=== PATIENT | female | born 1935 | race Caucasian/White ===

== ENCOUNTER 2016-06-11 09:49 | Inpatient (IN) | payer OTHER, MEDICARE ==
[~2016-06-11] VITALS: Ht 160 cm; Wt 74.4 kg
[~2016-06-11 09:49] MED LIST: ALENDRONATE SOD70 M2 PO; ALENDRONATE SOD70 MG PO; ALLOPURINOL100 M1 PO; ASPIRIN EC325 MG PO; ASPIRIN EC81 M1 PO; ATIVAN0.5 MG PO; ATORVASTATIN CA40 M1 PO; ATORVASTATIN CA80 MG PO; BIOTIN10000 MCG PO; CLOPIDOGREL75 M1 PO; CLOPIDOGREL75 MG PO; COUMADIN2.5 M1 PO; COUMADIN5 M2 PO; CYMBALTA 30 MG30 MG PO; CYMBALTA60 M1 PO; CYMBALTA60 MG PO; DAILY MULTIPLE1 EACH PO; DILAUDID2 MG PO; DOCUSATE SODIU100 M3 PO; DOK100 M1 PO; FERROUS SULFAT325 M1 PO; FERROUS SULFAT325 M3 PO; FIBERCON625 MG PO; FLUZONE HI180 MCG/02 SC; HYDROCODONE/ACE1 TA2 PO; HYDRODIURIL 2525 MG PO; INDOMETHACIN75 MG PO; JANUVIA 50MG50 MG PO; JANUVIA25 MG PO; LABETALOL HCL100 MG PO; LABETALOL HCL300 M1 PO; LASIX40 M1 PO; LASIX40 MG PO; LEVAQUIN500 MG PO; LIDODERM 5% PAT1 PAT EXT; LIDODERM 5% PAT1 PAT TOP; LIDODERM1 EACH EXT; LIDODERM1 EACH TOP; LIPO-FLAVONOID1 EACH PO; LISINOPRIL10 M1 PO; LISINOPRIL2.5 MG PO; LORAZEPAM0.5 MG PO; MASON NATURAL325 MG PO; METHIMAZOLE5 M1 PO; METHIMAZOLE5 MG PO; MIRALAX119 GM PO; MIRALAX17 GM PO; MORPHINE SULFAT15 M2 PO; MORPHINE SULFAT15 M4 PO; MS CONTIN15 M1 PO; NORCO 325 MG-51 TAB PO; PREDNISONE2.5 M1 PO; PREDNISONE5 MG PO; PRINIVIL 5MG5 MG PO; PROAIR HFA0.09 MG/Ac PO; SIMVASTATIN40 MG PO; TRADJENTA5 M1 PO; TRIAMTERENE/HCT1 CAP PO; TYLENOL #31 TAB PO; TYLENOL EXTRA500 M2 PO; TYLENOL WITH C1 EACH PO; TYLENOL XSTR500 MG PO; VALIUM2 MG PO; VALIUM5 M1 PO; VITAB121000 PO; VITAMIN B-121000 MC3 PO; VITAMIN B121000 MCG PO; VITAMIN D32000 UNI1 PO; ZYLOPRIM 100MG100 MG PO
--- NOTE | 2016-06-11 09:55 | ED MVC/FALL/TRAUMA COMPLAINT ---
History of Present Illness General Chief Complaint: Fall Stated Complaint: BIBA FALL Source: patient, family, EMS Exam Limitations: no limitations Vital Signs & Intake/Output Vital Signs & Intake/Output Vital Signs Date Time Temp Pulse Resp B/P Pulse O2 O2 Flow FiO2 Ox Delivery Rate 06/11 1230 98.4 88 20 166/78 98 Room Air 06/11 1000 98.9 93 20 175/71 99 Room Air Allergies Coded Allergies: hydromorphone (From DILAUDID) (hallucinations 05/10/16) morphine (hallucinations 05/10/16) oxycodone (hallucinations 05/10/16) Reconcile Medications Alendronate Sodium 70 MG TABLET 1 TAB PO QSUN BONES (Reported) in the morning, at least 30 minutes before the first food, beverage, or medication of the day Allopurinol 100 MG TAB 2 TAB PO QAM GOUT (Reported) Aspirin (Ecotrin*) 81 MG TABLET.DR 1 TAB PO DAILY HEART HEALTH (Reported) Atorvastatin Calcium 40 MG TABLET 1 TAB PO DAILY CHOLESTEROL (Reported) Biotin 10,000 MCG CAPSULE 1 CAP PO 1700 SUPPLEMENT (Reported) Calcium Carbonate/Vitamin D3 (Calcium 500 + D Tablet) 500 MG-400 TABLET 1 TAB PO DAILY SUPPLEMENT (Reported) Cyanocobalamin (Vitamin B-12) 1,000 MCG TABLET 1 TAB PO QAM SUPPLEMENT ( Reported) Docusate Sodium 100 MG CAPSULE 1 TAB PO DAILY CONSTIPATION Duloxetine HCl (Cymbalta) 60 MG CAPSULE.DR 1 CAP PO QHS MENTAL HEALTH ( Reported) Ferrous Sulfate 325 MG TABLET 1 TAB PO QAM SUPPLEMENT (Reported) Furosemide (Lasix) 40 MG TABLET 1 TAB PO QAM DIURETIC (Reported) Insulin Glargine,Hum.rec.anlog (Lantus Solostar) 100 UNIT/ML (3 ML) INSULN.PEN 15 UNIT SC QPM DIABETES (Reported) Insulin Lispro (Humalog Kwikpen U-100) (Unknown Strength) INSULN.PEN (Unknown Dose) SEE SLIDING SCALE DIABETES (Reported) fingerstick blood sugar 80-150 mg/dl no insulin 151-200 mg/dl 1 unit 201-250 mg/dl 2 units 251-300 mg/dl 3 units 301-350 mg/dl 4 units 351-400 mg/dl 6 units more then 400 mg/dl 8 units and then call your doctor Labetalol HCl 300 MG TABLET 1 TAB PO BID BP (Reported) Lidocaine (Lidoderm) 5 % ADH..PATCH 1 PAT TOP PRN LOWER BACK (Reported) may wear up to 12 hours Linagliptin (Tradjenta) 5 MG TABLET 1 TAB PO 1700 DIABETES (Reported) Lisinopril 10 MG TABLET 1 TAB PO BID HYPERTENSION (Reported) Methimazole 5 MG TABLET 0.5 TAB PO DAILY THYROID (Reported) Multivitamin (Daily Multiple) 1 TAB TAB 1 TAB PO QPM SUPPLEMENT (Reported) Penicillin G Potassium (Pen G K 2 Million Unit/50 Ml) 2 MILLION UNIT/50 ML FROZ.PIGGY 2 BAG IV Q4 BONE INFECTION COMPLETE THE TOTAL COURSE OF ABX UNTILL July Prednisone 2.5 MG TABLET 1 TAB PO DAILY GOUT (Reported) Tylenol With Codeine (Tylenol With Codeine #3 Tablet) 300 MG-30 MG TABLET 1-2 TAB PO Q4-6 PRN PRN PAIN Vitamin D (Vitamin D3) 2,000 IU SGL 1 TAB PO QPM SUPPLEMENT (Reported) Triage Nurses Notes Reviewed? yes Onset: Abrupt Duration: day(s): (1) Timing: single episode today Severity: severe Severity Numbers: 10 Injuries/Fall Location: SHOULDER Method of Injury: fall Loss of Consciousness: no loss of consciousness Modifying Factors: Worsens With: movement, palpation. Associated Symptoms: muscle spasms HPI: This is an 81-year-old female who presents via EMS from home for chief complaint of sudden onset of right shoulder pain status post trip and fall yesterday. She is home from rehabilitation since last week and states that she was reaching out for her walker lost her balance and fell forward. Patient denies any head trauma or loss of consciousness. Since then she has been unable to move her shoulder. Son heard the thump on the ground and found her lying on her left flank. They helped her up to her feet. Pain is severe, 10 out of 10 worse with movement. She is status post hip fracture replacement 2 weeks ago. They also noticed that her legs are swollen bilaterally in the right one has started to weep. Or chills. No headache or blurred vision. Patient is very anxious but awake and alert. Past History Travel History Traveled to [place] past 21 day No Medical History Any Pertinent Medical History? see below for history Neurological: NONE EENT: cataracts Cardiovascular: CHF, hypertension, hyperlipidemia, AORTIC ANEURYSM Respiratory: NONE Gastrointestinal: HAS BLEED- ?FROM WHERE Hepatic: cholelithiasis Renal: ACUTE KIDNEY FAILURE Musculoskeletal: chronic back pain, gout, HAD BACK SX- HAS CAGE Psychiatric: anxiety Endocrine: diabetes, hyperthyroidism Blood Disorders: anemia Cancer(s): colon/rectal cancer [employer] PR[employer] L[employer]/Reproductive: miscarriage History of MRSA: No History of VRE: No History of CDIFF: No Pneumonia Vaccine: 04/05/15 Influenza Vaccine: 01/04/16 Tetanus Vaccine: 04/24/15 Surgical History Surgical History: cholecystectomy, spinal fusion, L BREAST NIPPLE REMOVED L HIP ORIF Psychosocial History Who do you live with Family Services at Home None What is your primary language Kiswahili Family History Family History, If Any: BROTHER (Pancreatic cancer). Relation not specified for: Cancer of small intestine FH: diabetes mellitus FH: hypertension FH: pancreatic cancer Hx Contributory? No Review of Systems Review of Systems Constitutional: Denies: chills, fever. Eyes: Denies: blurred vision. Ears, Nose, Throat, Mouth: Reports: no symptoms. Respiratory: Denies: cough, short of breath. Cardiovascular: Denies: chest pain, palpitations. Gastrointestinal/Abdominal: Denies: abdominal pain. Genitourinary: Reports: no symptoms. Musculoskeletal: Reports: joint pain, joint swelling, muscle pain, muscle stiffness. Skin: Reports: no symptoms. Neurological/Psychological: Reports: anxiety. All Other Systems: Reviewed and Negative Physical Exam Physical Exam General Appearance: well developed/nourished, alert, awake, anxious, severe distress Head: atraumatic, normal appearance Eyes: Bilateral: normal appearance. Ears, Nose, Throat, Mouth: hearing grossly normal, moist mucous membrane Neck: normal inspection, supple, full range of motion Respiratory: normal breath sounds, chest non-tender, no respiratory distress Cardiovascular: regular rate/rhythm Peripheral Pulses: 2+ radial (R), 2+ radial (L) Gastrointestinal: soft, non-tender Extremities: SEVERE RIGHT SHOULDER TENDERNESS, LIMITED ROM Neurologic/Psych: no motor/sensory deficits, awake, alert, oriented x 3 Skin: intact, normal color, warm/dry Core Measures ACS in differential dx? No Severe Sepsis Present: No Septic Shock Present: No Progress Differential Diagnosis: ext injury, SHOULDER FRACTURE, SHOULDER DISLOCATION, RIGHT HIP INJURY, MALFUNCTION OF THE HARDWARE, chf, DEPENDENT EDEMA Plan of Care: Orders Procedure Date/time Status URINALYSIS 06/11 1109 Complete TROPONIN LEVEL 06/11 1009 Complete COMPREHENSIVE METABOLIC PANEL 06/11 1009 Complete CBC WITHOUT DIFFERENTIAL 06/11 1009 Complete B-TYPE NATRIURETIC PEP (BNP) 06/11 1009 Complete EKG 06/11 1009 Active Laboratory Tests 06/11/16 1214: Urine Color YEL, Urine Clarity CLEAR, Urine pH 6.0, Ur Specific [place] 1.015, Urine Protein NEG, Urine Ketones NEG, Urine Nitrite NEG, Urine Bilirubin NEG, Urine Urobilinogen 0.2, Ur Leukocyte Esterase SMALL H, Ur Microscopic SEDIMENT EXAMINED, Urine WBC 5-10 H, Ur Epithelial Cells FEW, Urine Hemoglobin NEG, Urine Glucose NEG 06/11/16 1027: Anion Gap 14, Estimated GFR 39 L, BUN/Creatinine Ratio 30.0 H, Glucose 159 H, Calcium 8.3 L, Total Bilirubin 1.1, AST 27, ALT 41, Alkaline Phosphatase 102, Troponin I < 0.01, Djl-M-Ciwoklpigbf Pept 2610 H, Total Protein 5.9 L, Albumin 3.2 L, Globulin 2.7, Albumin/Globulin Ratio 1.2, CBC w Diff MAN DIFF ORDERED, RBC 2.74 L, MCV 89.0, MCH 29.0, RDW 18.7 H, MPV 7.9, Gran % 88.8 H, Lymphocytes % 4.4 L, Monocytes % 6.6, Eosinophils % 0, Basophils % 0.2, Absolute Granulocytes 18.3 H, Absolute Lymphocytes 0.9 L, Absolute Monocytes 1.4 H, Absolute Eosinophils 0, Absolute Basophils 0, Platelet Estimate ADEQUATE , Polychromasia 1+, Hypochromic-Microcytic 1+, Poikilocytosis 1+, Anisocytosis 1 +, PUBS MCHC 32.6 L SEVERE RIGHT SHOULDER PAIN, ? HIP INJURY. XRAYS ORDERED. IV TYLENOL ORDERED, IV VALIUM ORDERED.. XRAY NEGATIVE FOR FX/DISLOCATION. CT RUE ORDERED. IV MORPHINE, IV ZOFRAN ORDERED. D/W DR BRIDGES. AIR IN JOINT ? INFECTIVE PROCESS. D/W SURGICAL PA WHO WILL CONSULT, POSSIBLE SHOULDER ASPIRATION. HOLD ABX. PATIENT ADMITTED TO MEDICAL SERVICE. (SALOMÓN LEDESMA,LUCIANA) Diagnostic Imaging: Viewed by Me: Radiology Read, CT Scan. Discussed w/RAD: Radiology Read, CT Scan. Radiology Impression: EXAM TYPE: RAD - XRY-HIP 2-3 VIEWS, RIGHT; XRY-SHOULDER COMPLETE-RIGHT EXAMINATION: XR SHOULDER, RIGHT XR HIP, RIGHT, INCLUDING PELVIS CLINICAL INFORMATION: 81-year-old female with right shoulder pain, status post fall. Patient also has a right hip pain. COMPARISON: None. TECHNIQUE: 3 views, 5 images of the right shoulder and single frontal view of the pelvis and 2 views of the right hip were obtained. FINDINGS: RIGHT SHOULDER: Moderate diffuse osteopenia is noted involving all the visualized bones. Superimposed moderate degenerative osteoarthrosis-related changes are noted at the right glenohumeral joint. The glenohumeral relationship could not be visualized on the Y projection in spite of repeated attempts due to suboptimal exposure and underlying diffuse osteopenia. The visualized proximal part of the right humerus appears intact. PELVIS: The frontal view of the pelvis shows postsurgical changes at lower lumbar spine and postsurgical changes of complete right hip replacement and Gamma nailing within the left femoral neck and visualized proximal part of the left femur. There is no evidence of any displaced fracture identified. There is marked diffuse osteopenia present. RIGHT HIP: The right hip frontal as well as frog-leg lateral view shows satisfactory alignment of the prosthesis without evidence of any loosening or superimposed fracture. Atherosclerotic changes are noted within the visualized arteries. IMPRESSION: 1. Evaluation of the right shoulder is slightly technically limited due to marked diffuse osteopenia and suboptimal visualization of the glenohumeral alignment on the Y projection. 2. Grossly, there is no evidence of any acute fracture and/or dislocation identified. Marked diffuse osteopenia and moderate osteoarthrosis-related changes are noted at the right shoulder. Subluxation cannot be excluded. Alternative imaging modality may be considered if there is a strong clinical suspicion of acute fracture or dislocation present. 3. No radiographic evidence of any displaced pelvic fracture or right hip fracture or dislocation. 4. Specifically, the right hip prosthesis appears intact. DICTATED BY: BILL NAJERA MD Initial ED EKG: NSR, PAC Comments: PATIENT: XENA OVALLE PRESENT AGE: 81 PATIENT ACCOUNT NO: [id number] : 34 LOCATION: [facility] ORDERING PHYSICIAN: LUCIANA LORENZANA MD SERVICE DATE: 06/11/16 EXAM TYPE: CAT - CT UPPER EXT WO IV CONTRAST EXAMINATION: CT UPPER EXTREMITY WITHOUT CONTRAST, RIGHT CLINICAL INFORMATION: Severe right shoulder pain after a fall. COMPARISON: Radiographs earlier today. TECHNIQUE: A noncontrast CT of the right shoulder is performed with sagittal and coronal reformats. DLP: 656 mGy-cm. FINDINGS: There is a large joint effusion and a large amount of fluid in the subacromial subdeltoid bursa likely extending through tearing of the supraspinatus and/or infraspinatus tendons. There are foci of gas within the joint and bursal fluid collection. There is calcinosis along the supraspinatus and infraspinatus tendons. There is also moderate muscle atrophy and fatty infiltration supporting the suspicion of rotator cuff tearing. Severe glenohumeral osteoarthritis with subchondral sclerosis, numerous subchondral cysts, remodeling of the glenoid face, osteophytes and an ossified body along the inferior glenoid rim which appears chronic. This could represent an acutely fractured osteophyte. Otherwise, no fracture is evident. Severe acromioclavicular osteoarthritis with calcinosis and a chronic cyst/erosion of the distal clavicle. Large subacromial spur. Incidentally noted are chronic-appearing compression fractures of the mid and upper thoracic spine. IMPRESSION: Severe right glenohumeral osteoarthritis. Large joint effusion and bursal fluid collection which contains multiple foci of gas. Correlate for history of a penetrating injury or signs of infection. There could be a small fracture of an osteophyte along the inferior glenoid rim. Otherwise, no acute fracture is evident. Supraspinatus and infraspinatus calcific tendinitis with presumed full-thickness tearing, which may be extensive given the atrophy and fatty infiltration of the supraspinatus and infraspinatus muscles. Chronic-appearing fractures of mid and upper thoracic vertebral bodies. DICTATED BY: NA SAMUEL MD DATE/TIME DICTATED:06/11/161351 DISMANTLER:ALLEN DATE/TIME TRANSCRIBED:06/11/161351 CONFIDENTIAL, DO NOT COPY WITHOUT APPROPRIATE AUTHORIZATION. <Electronically signed in Other Vendor System> SIGNED BY: NA SAMUEL MD 12/19 1421 Departure Departure Disposition: STILL A PATIENT Condition: Stable Clinical Impression Primary Impression: Shoulder contusion Secondary Impressions: Intractable pain Referrals: ELAINE LEDESMA,FREDERICK Muniz Departure Forms: Customer Survey General Discharge Information Prescriptions: Current Visit Scripts Penicillin G Potassium (Pen G K 2 Million Unit/50 Ml) 2 BAG IV Q4 23 Days COMPLETE THE TOTAL COURSE OF ABX UNTILL July Admission Note Spoke With: ELAINE LEDESMA,RODRIGO Documentation of Exam: Documentation of any treatments & extenuating circumstances including Concerns Regarding Discharge (functional status, medication knowledge or non-compliance, living conditions, etc.) that warrant an admission rather than observation: [ PAIN CONTROL, ORTHOPEDIC CONSULTATION DR BRIDGES, PT EVALUATION, OT EVALUATION] ED Sepsis Exam Date of Focused Sepsis Exam: 06/11/16 Time of Focused Sepsis Exam: 1015 Sepsis Cardiac Exam: Regular Rate/Rhythm Sepsis Resp Exam: CTA Sepsis Cap Refill Exam: <2 Sec Sepsis Peripheral Pulse Exam: Normal Sepsis Peripheral Pulse Location: Radial Sepsis Skin Color Exam: Normal for Ethnicity Skin Temp/Moisture Exam: Warm/Dry
[2016-06-11] MEDS ORDERED: LANTUS SOL100 UNIT/1 SC (10:07)
[2016-06-11] MEDS ORDERED: HUMALOG KW100 UNIT/1 (10:07)
[2016-06-11] MEDS ORDERED: CALCIUM 500 +1 EAC5 PO (10:09)
[2016-06-11] MEDS ORDERED: WARFARIN SODIUM2 M1 PO (10:10)
[2016-06-11 10:38] LABS: ABSOLUTE EOSINOPHIL COUNT 0 /CUMM (0.0-0.7); ABSOLUTE GRANULOCYTE CT 18.3 /CUMM (1.4-6.5); HEMATOCRIT 24.4 % (37-47)
[2016-06-11 10:43] LABS: ABSOLUTE BASOPHIL COUNT 0 /CUMM (0.0-0.2); ABSOLUTE LYMPH COUNT 0.9 /CUMM (1.2-3.4); ABSOLUTE MONOCYTE COUNT 1.4 /CUMM (0.10-0.60); BASOPHIL % 0.2 % (0.0-2.0); EOSINOPHIL % 0 % (0-5); GRANULOCYTE % 88.8 % (42.2-75.2); MEAN CORPUSCULAR HGB CONC 32.6 G/DL (33.0-37.0); MEAN PLATELET VOLUME 7.9 FL (7.4-10.4); PLATELET COUNT 284 /CUMM (130-400); RBC DISTRIBUTION WIDTH 18.7 % (11.5-14.5); RED BLOOD CELL CT 2.74 /CUMM (4.20-5.40)
[2016-06-11 10:45] LABS: WHITE BLOOD CELL COUNT 20.6 /CUMM (4.8-10.8)
--- NOTE | 2016-06-11 12:52 | RADIOLOGY REPORT ---
EXAMINATION: XR SHOULDER, RIGHT XR HIP, RIGHT, INCLUDING PELVIS CLINICAL INFORMATION: 81-year-old female with right shoulder pain, status post fall. Patient also has a right hip pain. COMPARISON: None. TECHNIQUE: 3 views, 5 images of the right shoulder and single frontal view of the pelvis and 2 views of the right hip were obtained. FINDINGS: RIGHT SHOULDER: Moderate diffuse osteopenia is noted involving all the visualized bones. Superimposed moderate degenerative osteoarthrosis-related changes are noted at the right glenohumeral joint. The glenohumeral relationship could not be visualized on the Y projection in spite of repeated attempts due to suboptimal exposure and underlying diffuse osteopenia. The visualized proximal part of the right humerus appears intact. PELVIS: The frontal view of the pelvis shows postsurgical changes at lower lumbar spine and postsurgical changes of complete right hip replacement and Gamma nailing within the left femoral neck and visualized proximal part of the left femur. There is no evidence of any displaced fracture identified. There is marked diffuse osteopenia present. RIGHT HIP: The right hip frontal as well as frog-leg lateral view shows satisfactory alignment of the prosthesis without evidence of any loosening or superimposed fracture. Atherosclerotic changes are noted within the visualized arteries. IMPRESSION: 1. Evaluation of the right shoulder is slightly technically limited due to marked diffuse osteopenia and suboptimal visualization of the glenohumeral alignment on the Y projection. 2. Grossly, there is no evidence of any acute fracture and/or dislocation identified. Marked diffuse osteopenia and moderate osteoarthrosis-related changes are noted at the right shoulder. Subluxation cannot be excluded. Alternative imaging modality may be considered if there is a strong clinical suspicion of acute fracture or dislocation present. 3. No radiographic evidence of any displaced pelvic fracture or right hip fracture or dislocation. 4. Specifically, the right hip prosthesis appears intact.
--- NOTE | 2016-06-11 14:21 | CT SCAN REPORT ---
EXAMINATION: CT UPPER EXTREMITY WITHOUT CONTRAST, RIGHT CLINICAL INFORMATION: Severe right shoulder pain after a fall. COMPARISON: Radiographs earlier today. TECHNIQUE: A noncontrast CT of the right shoulder is performed with sagittal and coronal reformats. DLP: 656 mGy-cm. FINDINGS: There is a large joint effusion and a large amount of fluid in the subacromial subdeltoid bursa likely extending through tearing of the supraspinatus and/or infraspinatus tendons. There are foci of gas within the joint and bursal fluid collection. There is calcinosis along the supraspinatus and infraspinatus tendons. There is also moderate muscle atrophy and fatty infiltration supporting the suspicion of rotator cuff tearing. Severe glenohumeral osteoarthritis with subchondral sclerosis, numerous subchondral cysts, remodeling of the glenoid face, osteophytes and an ossified body along the inferior glenoid rim which appears chronic. This could represent an acutely fractured osteophyte. Otherwise, no fracture is evident. Severe acromioclavicular osteoarthritis with calcinosis and a chronic cyst/erosion of the distal clavicle. Large subacromial spur. Incidentally noted are chronic-appearing compression fractures of the mid and upper thoracic spine. IMPRESSION: Severe right glenohumeral osteoarthritis. Large joint effusion and bursal fluid collection which contains multiple foci of gas. Correlate for history of a penetrating injury or signs of infection. There could be a small fracture of an osteophyte along the inferior glenoid rim. Otherwise, no acute fracture is evident. Supraspinatus and infraspinatus calcific tendinitis with presumed full-thickness tearing, which may be extensive given the atrophy and fatty infiltration of the supraspinatus and infraspinatus muscles. Chronic-appearing fractures of mid and upper thoracic vertebral bodies.
--- NOTE | 2016-06-11 15:14 | History & Physical ---
General Information and HPI MD Statement: I have seen and personally examined XENA OVALLE and documented this H&P. The patient is a 81 year old F who presented with a patient stated chief complaint of FALL Allergies/Medications Allergies: Coded Allergies: hydromorphone (From DILAUDID) (hallucinations 05/10/16) morphine (hallucinations 05/10/16) oxycodone (hallucinations 05/10/16) Home Med list Alendronate Sodium 70 MG TABLET 1 TAB PO QSUN BONES (Reported) in the morning, at least 30 minutes before the first food, beverage, or medication of the day Allopurinol 100 MG TAB 2 TAB PO QAM GOUT (Reported) Aspirin (Ecotrin*) 81 MG TABLET.DR 1 TAB PO DAILY HEART HEALTH (Reported) Atorvastatin Calcium 40 MG TABLET 1 TAB PO DAILY CHOLESTEROL (Reported) Biotin 10,000 MCG CAPSULE 1 CAP PO 1700 SUPPLEMENT (Reported) Calcium Carbonate/Vitamin D3 (Calcium 500 + D Tablet) 500 MG-400 TABLET 1 TAB PO DAILY SUPPLEMENT (Reported) Cyanocobalamin (Vitamin B-12) 1,000 MCG TABLET 1 TAB PO QAM SUPPLEMENT ( Reported) Docusate Sodium 100 MG CAPSULE 1 TAB PO DAILY CONSTIPATION Duloxetine HCl (Cymbalta) 60 MG CAPSULE.DR 1 CAP PO QHS MENTAL HEALTH ( Reported) Ferrous Sulfate 325 MG TABLET 1 TAB PO QAM SUPPLEMENT (Reported) Furosemide (Lasix) 40 MG TABLET 1 TAB PO QAM DIURETIC (Reported) Insulin Glargine,Hum.rec.anlog (Lantus Solostar) 100 UNIT/ML (3 ML) INSULN.PEN 15 UNIT SC QPM DIABETES (Reported) Insulin Lispro (Humalog Kwikpen U-100) (Unknown Strength) INSULN.PEN (Unknown Dose) SEE SLIDING SCALE DIABETES (Reported) Labetalol HCl 300 MG TABLET 1 TAB PO BID BP (Reported) Lidocaine (Lidoderm) 5 % ADH..PATCH 1 PAT TOP PRN LOWER BACK (Reported) may wear up to 12 hours Linagliptin (Tradjenta) 5 MG TABLET 1 TAB PO 1700 DIABETES (Reported) Lisinopril 10 MG TABLET 1 TAB PO BID HYPERTENSION (Reported) Methimazole 5 MG TABLET 0.5 TAB PO DAILY THYROID (Reported) Multivitamin (Daily Multiple) 1 TAB TAB 1 TAB PO QPM SUPPLEMENT (Reported) Prednisone 2.5 MG TABLET 1 TAB PO DAILY GOUT (Reported) Tylenol With Codeine (Tylenol With Codeine #3 Tablet) 300 MG-30 MG TABLET 1-2 TAB PO Q4-6 PRN PRN PAIN Vitamin D (Vitamin D3) 2,000 IU SGL 1 TAB PO QPM SUPPLEMENT (Reported) Warfarin Sodium 2 MG TABLET 1 TAB PO 1700 BLOOD THINNER (Reported) Past History Travel History Traveled to [place] past 21 day No Medical History Neurological: NONE EENT: cataracts Cardiovascular: CHF, hypertension, hyperlipidemia, AORTIC ANEURYSM Respiratory: NONE Gastrointestinal: HAS BLEED- ?FROM WHERE Hepatic: cholelithiasis Renal: ACUTE KIDNEY FAILURE Musculoskeletal: chronic back pain, gout, HAD BACK SX- HAS CAGE Psychiatric: anxiety Endocrine: diabetes, hyperthyroidism Blood Disorders: anemia Cancer(s): colon/rectal cancer [employer]/Reproductive: miscarriage History of MRSA: No History of VRE: No History of CDIFF: No Tetanus Vaccine: 04/24/15 Surgical History Surgical History: cholecystectomy, spinal fusion, L BREAST NIPPLE REMOVED L HIP ORIF Past Family/Social History Family History Relations & Conditions if any BROTHER (Pancreatic cancer). Relation not specified for: Cancer of small intestine FH: diabetes mellitus FH: hypertension FH: pancreatic cancer Psychosocial History Who Do You Live With? child Services at Home: None ETOH Use: denies use Illicit Drug Use: denies illicit drug use Functional Ability ADLs Independent: dressing, eating, toileting, bathing. Ambulation: independent IADLs Independent: shopping, housework, finances, food prep, telephone, transportation , medication admin. Core Measures/Miscellaneous Severe Sepsis Severe Sepsis Present: No Septic Shock Septic Shock Present: No
--- NOTE | 2016-06-11 15:45 | Cons- Orthopedic ---
See Addendum General Information and HPI Consulting Request Date of Consult: 06/11/16 Requested By: ELAINE LEDESMA,RODRIGO Reason for Consult: RIGHT SHOULDER PAIN Source of Information: patient, family Exam Limitations: poor historian History of Present Illness: Patient is an 81 year old obese female with a past medical history significant for CAD s/p PTCA, hypertension, hyperlipidemia, gout, hx CHF, hx goiter, DM and pulmonary nodules recently discharged from [facility] (05/11/16-05/14/16) after sustaining a right hip fracture. She underwent a right hip hemiarthroplasty by Dr. Macdonald and her hospital course was uneventful, discharging to a [facility] facility. She, while in the facility, was able to follow up with Dr. Macdonald, complaining of right shoulder pain, which she has chronically had due to a shoulder 'bone spur' . The patient states she was told by Dr. Mitchell that she does not have a rotator cuff anymore and that her pain is likely due to 'bone on bone' pain. Dr. Macdonald, last week while in [facility], was able to inject her shoulder with cortisone, and her pain subsided. She was discharged home from [facility] a few days ago. Approximately two days prior to her ED visit, the patient fell at home, landing on her left side. Since then, she describes RIGHT shoulder pain and does not have the ability to move her shoulder. She denies numbness or tingling to her arm. Denies fever, chills, CP/SOB, N/V. Denies dysuria, diarrhea, or cough. She was found to have a leukocytosis to 20k in the ED and orthopedics was called to evaluate for right shoulder septic joint. Allergies/Medications Allergies: Coded Allergies: hydromorphone (From DILAUDID) (hallucinations 05/10/16) morphine (hallucinations 05/10/16) oxycodone (hallucinations 05/10/16) Home Med List: Alendronate Sodium 70 MG TABLET 1 TAB PO QSUN BONES (Reported) in the morning, at least 30 minutes before the first food, beverage, or medication of the day Allopurinol 100 MG TAB 2 TAB PO QAM GOUT (Reported) Aspirin (Ecotrin*) 81 MG TABLET.DR 1 TAB PO DAILY HEART HEALTH (Reported) Atorvastatin Calcium 40 MG TABLET 1 TAB PO DAILY CHOLESTEROL (Reported) Biotin 10,000 MCG CAPSULE 1 CAP PO 1700 SUPPLEMENT (Reported) Calcium Carbonate/Vitamin D3 (Calcium 500 + D Tablet) 500 MG-400 TABLET 1 TAB PO DAILY SUPPLEMENT (Reported) Cyanocobalamin (Vitamin B-12) 1,000 MCG TABLET 1 TAB PO QAM SUPPLEMENT ( Reported) Docusate Sodium 100 MG CAPSULE 1 TAB PO DAILY CONSTIPATION Duloxetine HCl (Cymbalta) 60 MG CAPSULE.DR 1 CAP PO QHS MENTAL HEALTH ( Reported) Ferrous Sulfate 325 MG TABLET 1 TAB PO QAM SUPPLEMENT (Reported) Furosemide (Lasix) 40 MG TABLET 1 TAB PO QAM DIURETIC (Reported) Insulin Glargine,Hum.rec.anlog (Lantus Solostar) 100 UNIT/ML (3 ML) INSULN.PEN 15 UNIT SC QPM DIABETES (Reported) Insulin Lispro (Humalog Kwikpen U-100) (Unknown Strength) INSULN.PEN (Unknown Dose) SEE SLIDING SCALE DIABETES (Reported) Labetalol HCl 300 MG TABLET 1 TAB PO BID BP (Reported) Lidocaine (Lidoderm) 5 % ADH..PATCH 1 PAT TOP PRN LOWER BACK (Reported) may wear up to 12 hours Linagliptin (Tradjenta) 5 MG TABLET 1 TAB PO 1700 DIABETES (Reported) Lisinopril 10 MG TABLET 1 TAB PO BID HYPERTENSION (Reported) Methimazole 5 MG TABLET 0.5 TAB PO DAILY THYROID (Reported) Multivitamin (Daily Multiple) 1 TAB TAB 1 TAB PO QPM SUPPLEMENT (Reported) Prednisone 2.5 MG TABLET 1 TAB PO DAILY GOUT (Reported) Tylenol With Codeine (Tylenol With Codeine #3 Tablet) 300 MG-30 MG TABLET 1-2 TAB PO Q4-6 PRN PRN PAIN Vitamin D (Vitamin D3) 2,000 IU SGL 1 TAB PO QPM SUPPLEMENT (Reported) Warfarin Sodium 2 MG TABLET 1 TAB PO 1700 BLOOD THINNER (Reported) Past History Medical History Neurological: NONE EENT: cataracts Cardiovascular: CHF, hypertension, hyperlipidemia, AORTIC ANEURYSM Respiratory: NONE Gastrointestinal: HAS BLEED- ?FROM WHERE Hepatic: cholelithiasis Renal: ACUTE KIDNEY FAILURE Musculoskeletal: chronic back pain, gout, HAD BACK SX- HAS CAGE Psychiatric: anxiety Endocrine: diabetes, hyperthyroidism Blood Disorders: anemia Cancer(s): colon/rectal cancer RN PRODUCTION/Reproductive: miscarriage Surgical History Pertinent Surgical History: cholecystectomy, spinal fusion, L BREAST NIPPLE REMOVED L HIP ORIF Family History Relations & Conditions If Any: BROTHER (Pancreatic cancer). Relation not specified for: Cancer of small intestine FH: diabetes mellitus FH: hypertension FH: pancreatic cancer Psychosocial History Who Do You Live With? child Services at Home: None ETOH Use: denies use Illicit Drug Use: denies illicit drug use Functional Ability ADLs Independent: dressing, eating, toileting, bathing. Ambulation: independent IADLs Independent: shopping, housework, finances, food prep, telephone, transportation , medication admin. Review of Systems Review of Systems: see HPI Exam & Diagnostic Data Vital Signs and I&O Vital Signs Date Time Temp Pulse Resp B/P Pulse O2 O2 Flow FiO2 Ox Delivery Rate 06/11 1508 98.2 84 18 148/72 97 Room Air 06/11 1230 98.4 88 20 166/78 98 Room Air 06/11 1000 98.9 93 20 175/71 99 Room Air Intake & Output 06/11 1600 06/11 0800 06/11 0000 06/10 1600 06/10 0800 06/10 0000 Intake Total 500 Output Total Balance 500 Intake, IV 500 Patient 164 lb Weight Physical Exam: Gen: AAOx3 in NAD Cor: S1+S2+ Lungs: CTA addison Abd: soft, NT, ND, +BS x4 Ext: bilateral lower extremity pitting edema. Palpable DP/PT pulses addison. Dependent rubor to right lower extremity. No tenderness to palpation of calves. Right shoulder examined. No erythema. Tender to palpation over AC joint. Imaging Results: EXAM TYPE: CAT - CT UPPER EXT WO IV CONTRAST EXAMINATION: CT UPPER EXTREMITY WITHOUT CONTRAST, RIGHT CLINICAL INFORMATION: Severe right shoulder pain after a fall. COMPARISON: Radiographs earlier today. TECHNIQUE: A noncontrast CT of the right shoulder is performed with sagittal and coronal reformats. DLP: 656 mGy-cm. FINDINGS: There is a large joint effusion and a large amount of fluid in the subacromial subdeltoid bursa likely extending through tearing of the supraspinatus and/or infraspinatus tendons. There are foci of gas within the joint and bursal fluid collection. There is calcinosis along the supraspinatus and infraspinatus tendons. There is also moderate muscle atrophy and fatty infiltration supporting the suspicion of rotator cuff tearing. Severe glenohumeral osteoarthritis with subchondral sclerosis, numerous subchondral cysts, remodeling of the glenoid face, osteophytes and an ossified body along the inferior glenoid rim which appears chronic. This could represent an acutely fractured osteophyte. Otherwise, no fracture is evident. Severe acromioclavicular osteoarthritis with calcinosis and a chronic cyst/erosion of the distal clavicle. Large subacromial spur. Incidentally noted are chronic-appearing compression fractures of the mid and upper thoracic spine. IMPRESSION: Severe right glenohumeral osteoarthritis. Large joint effusion and bursal fluid collection which contains multiple foci of gas. Correlate for history of a penetrating injury or signs of infection. There could be a small fracture of an osteophyte along the inferior glenoid rim. Otherwise, no acute fracture is evident. Supraspinatus and infraspinatus calcific tendinitis with presumed full-thickness tearing, which may be extensive given the atrophy and fatty infiltration of the supraspinatus and infraspinatus muscles. Chronic-appearing fractures of mid and upper thoracic vertebral bodies. DICTATED BY: NA SAMUEL MD DATE/TIME DICTATED:06/11/161351 FOOTWEAR STITCHER:ALLEN DATE/TIME TRANSCRIBED:06/11/161351 CONFIDENTIAL, DO NOT COPY WITHOUT APPROPRIATE AUTHORIZATION. <Electronically signed in Other Vendor System> SIGNED BY: NA SAMUEL MD 12/19 1421 Assessment/Plan Assessment/Plan A: 81 year old female with history as above now s/p fall two days prior to ED visit with pain to right shoulder after cortisone injection 1 week ago. Leukocytosis to 20k, afebrile in ED. Plan: Admit to medicine service. Eval other sources for leukocytosis-urine, blood cultures. Dr. Veloz to aspirate right shoulder joint. Culture order placed. Consult Acknowledgment - Thank you for your consult request.
--- NOTE | 2016-06-11 16:14 | Admission Certification ---
Admission Certification Certification Statement - As attending physician, I certify that at the time of - admission, based on clinical presentation, severity of - symptoms, need for further diagnostic testing and - therapeutic interventions, and risk of adverse outcomes - without in-hospital treatment, in my clinical assessment, - this patient requires an acute hospital stay for a minimum - of two nights or longer. I have also considered psychsocial - factors such as support system, advanced age, financial - issues, cognitive issues, and failed out-patient treatments, - past re-admission history, safety of patient, and lack of - compliance as applicable. Specific rationale supporting this admission is: Multiple falls and the right shoulder pain
--- NOTE | 2016-06-11 16:23 | PN- Att Addend ---
Attending Addendum Attending Brief Note Patient seen and examined in the emergency room. Plan of care discussed with the medical team and the patient. Available lab work and radiology test reports were reviewed. In summary patient is 81-year-old female with history of right femoral neck fracture which was repaired in early May 2016, history of diabetes, history of coronary heart disease, CHF, hypertension, thyroid goiter and anemia. She has been falling at home and with recent fall she hurt her right shoulder. Her range of motion is very limited in right shoulder. In ED ventilation did not show any acute fracture or there is a right shoulder joint effusion. Vital Signs Date Time Temp Pulse Resp B/P Pulse O2 O2 Flow FiO2 Ox Delivery Rate 06/11 1508 98.2 84 18 148/72 97 Room Air 06/11 1230 98.4 88 20 166/78 98 Room Air 06/11 1000 98.9 93 20 175/71 99 Room Air Intake & Output 06/11 1600 06/11 0800 06/11 0000 Intake Total 500 Output Total Balance 500 Intake, IV 500 Patient 164 lb Weight Exam: General: Patient awake alert oriented without any distress CVS: S1 plus S2 without any murmur or gallops Chest: Few scattered crepitation without any wheeze. There is no respiratory distress. Abdomen: Soft nontender, bowel sound present, no guarding or rebound POKE IN: Awake alert oriented without any focal neuro deficit and follows command appropriately Extremities: No edema; no clubbing or cyanosis noted ; right shoulder is tender slightly swollen and range of motion is limited. Laboratory Tests 06/11 06/11 1214 1027 Chemistry Sodium (137 - 145 mmol/L) 135 L Potassium (3.5 - 5.1 mmol/L) 4.5 Chloride (98 - 107 mmol/L) 98 Carbon Dioxide (22 - 30 mmol/L) 23 Anion Gap (5 - 16) 14 BUN (7 - 17 mg/dL) 39 H Creatinine (0.5 - 1.0 mg/dL) 1.3 H Estimated GFR (>60 ml/min) 39 L BUN/Creatinine Ratio (7 - 25 %) 30.0 H Glucose (65 - 99 mg/dL) 159 H Calcium (8.4 - 10.2 mg/dL) 8.3 L Total Bilirubin (0.2 - 1.3 mg/dL) 1.1 AST (14 - 36 U/L) 27 ALT (9 - 52 U/L) 41 Alkaline Phosphatase (<127 U/L) 102 Troponin I (< 0.11 ng/ml) < 0.01 [id number] Pept (<125 pg/mL) 2610 H Total Protein (6.3 - 8.2 g/dL) 5.9 L Albumin (3.5 - 5.0 g/dL) 3.2 L Globulin (1.9 - 4.2 gm/dL) 2.7 Albumin/Globulin Ratio (1.1 - 2.2 %) 1.2 Hematology CBC w Diff MAN DIFF ORDERED WBC (4.8 - 10.8 /CUMM) 20.6 H RBC (4.20 - 5.40 /CUMM) 2.74 L Hgb (12.0 - 16.0 G/DL) 7.9 L Hct (37 - 47 %) 24.4 L MCV (81.0 - 99.0 FL) 89.0 MCH (27.0 - 31.0 PG) 29.0 RDW (11.5 - 14.5 %) 18.7 H Plt Count (130 - 400 /CUMM) 284 MPV (7.4 - 10.4 FL) 7.9 Gran % (42.2 - 75.2 %) 88.8 H Lymphocytes % (20.5 - 51.1 %) 4.4 L Monocytes % (1.7 - 9.3 %) 6.6 Eosinophils % (0 - 5 %) 0 Basophils % (0.0 - 2.0 %) 0.2 Absolute Granulocytes (1.4 - 6.5 /CUMM) 18.3 H Absolute Lymphocytes (1.2 - 3.4 /CUMM) 0.9 L Absolute Monocytes (0.10 - 0.60 /CUMM) 1.4 H Absolute Eosinophils (0.0 - 0.7 /CUMM) 0 Absolute Basophils (0.0 - 0.2 /CUMM) 0 Platelet Estimate (ADEQUATE) ADEQUATE Polychromasia 1+ Hypochromic-Microcytic 1+ Poikilocytosis 1+ Anisocytosis 1+ PUBS MCHC (33.0 - 37.0 G/DL) 32.6 L Urines Urine Color (YEL,AMB,STR) YEL Urine Clarity (CLEAR) CLEAR Urine pH (5.0 - 8.0) 6.0 Ur Specific Ramer (1.001 - 1.035) 1.015 Urine Protein (NEG,<30 MG/DL) NEG Urine Ketones (NEG) NEG Urine Nitrite (NEG) NEG Urine Bilirubin (NEG) NEG Urine Urobilinogen (0.1 - 1.0 EU/dl) 0.2 Ur Leukocyte Esterase (NEG) SMALL H Ur Microscopic SEDIMENT EXAMINED Urine WBC (0 - 2 /HPF) 5-10 H Ur Epithelial Cells (NONE,FEW) FEW Urine Hemoglobin (NEG) NEG Urine Glucose (N MG/DL) NEG Microbiology Date/Time Procedure - Status Source Growth 06/11 1557 Body Fluid Culture - COLB BODY FLUID 06/11 1557 Gram Stain - COLB BODY FLUID 06/11 1500 Blood Culture - RECD BLOOD 06/11 1433 Blood Culture - COLB BLOOD 06/11 1214 Urine Culture - RECD URINE ROUT Right shoulders CT Severe right glenohumeral osteoarthritis. Large joint effusion and bursal fluid collection which contains multiple foci of gas. Correlate for history of a penetrating injury or signs of infection. There could be a small fracture of an osteophyte along the inferior glenoid rim. Otherwise, no acute fracture is evident. Supraspinatus and infraspinatus calcific tendinitis with presumed full-thickness tearing, which may be extensive given the atrophy and fatty infiltration of the supraspinatus and infraspinatus muscles. Chronic-appearing fractures of mid and upper thoracic vertebral bodies. Hip x-ray 1. Evaluation of the right shoulder is slightly technically limited due to marked diffuse osteopenia and suboptimal visualization of the glenohumeral alignment on the Y projection. 2. Grossly, there is no evidence of any acute fracture and/or dislocation identified. Marked diffuse osteopenia and moderate osteoarthrosis-related changes are noted at the right shoulder. Subluxation cannot be excluded. Alternative imaging modality may be considered if there is a strong clinical suspicion of acute fracture or dislocation present. 3. No radiographic evidence of any displaced pelvic fracture or right hip fracture or dislocation. 4. Specifically, the right hip prosthesis appears intact. Assessment and problem list * Multiple falls at home * Right shoulder effusion and pain likely due to trauma. Patient has evidence of chronic tendinitis based on CT findings * History of CAD * History of CHF * History of diabetes Plan: * Orthopedic evaluation for right shoulder * Heat pad to right shoulder * Admit to general medicine * Physical therapy evaluation * Continue all home medication except Lasix and lisinopril. Lasix and lisinopril should be held. Recheck creatinine tomorrow.
[2016-06-11 17:31] LABS: PT 17.6 SEC (9.4-12.5)
--- NOTE | 2016-06-11 18:37 | Event Note ---
Event Note Event Note: Spoke with Dr. Veloz. Patient will go to OR tomorrow morning for arthroscopic right shoulder irrigation and debridement. Should be NPO p MN. Discussed with national opelint analyst resident who will risk stratify patient. Consent obtained.
--- NOTE | 2016-06-11 21:59 | History & Physical ---
See Addendum General Information and HPI Source of Information: patient, family Exam Limitations: poor historian History of Present Illness: This 80-year-old female with past medical history of diabetes, CHF, hypertension , hyperlipidemia, hyperthyroidism, colon cancer status post hemicolectomy, coronary artery disease status post bare metal stent, thoracic aortic aneurysm, recently discharged after right hip arthroplasty on 05/11/[address] Leon presents from home after a fall 2 days ago. Reports that she was trying to grab her walker, lost balance and fell down. She has history of multiple falls and injuries which usually results in a day. Patient noticed that her right shoulder pain was getting worse and mobility severely decreased, has decided to come to the ED. Patient has been doing fine after she went from rehabilitation. She has visiting nurse. Denied hitting her head or loss of consciousness. She was found by her kids at home will help her to get up. She has history of multiple falls and injuries which usually results in a day. On interview today patient had her right shoulder in abducted position, unable to extend or abduct. Range of motions was not tested due to severe pain. Denies fever, chills, chest pain, cough, other joint swelling, abdominal pain, nausea, vomiting, urinary tract infections symptoms, back pain. Denies chest pain, palpitations, syncope, dizziness, headaches, vision changes when the event happened. Allergies/Medications Allergies: Coded Allergies: hydromorphone (From DILAUDID) (hallucinations 05/10/16) morphine (hallucinations 05/10/16) oxycodone (hallucinations 05/10/16) Home Med list Alendronate Sodium 70 MG TABLET 1 TAB PO QSUN BONES (Reported) in the morning, at least 30 minutes before the first food, beverage, or medication of the day Allopurinol 100 MG TAB 2 TAB PO QAM GOUT (Reported) Aspirin (Ecotrin*) 81 MG TABLET. 1 TAB PO DAILY HEART HEALTH (Reported) Atorvastatin Calcium 40 MG TABLET 1 TAB PO DAILY CHOLESTEROL (Reported) Biotin 10,000 MCG CAPSULE 1 CAP PO 1700 SUPPLEMENT (Reported) Calcium Carbonate/Vitamin D3 (Calcium 500 + D Tablet) 500 MG-400 TABLET 1 TAB PO DAILY SUPPLEMENT (Reported) Cyanocobalamin (Vitamin B-12) 1,000 MCG TABLET 1 TAB PO QAM SUPPLEMENT ( Reported) Docusate Sodium 100 MG CAPSULE 1 TAB PO DAILY CONSTIPATION Duloxetine HCl (Cymbalta) 60 MG CAPSULE.DR 1 CAP PO QHS MENTAL HEALTH ( Reported) Ferrous Sulfate 325 MG TABLET 1 TAB PO QAM SUPPLEMENT (Reported) Furosemide (Lasix) 40 MG TABLET 1 TAB PO QAM DIURETIC (Reported) Insulin Glargine,Hum.rec.anlog (Lantus Solostar) 100 UNIT/ML (3 ML) INSULN.PEN 15 UNIT SC QPM DIABETES (Reported) Insulin Lispro (Humalog Kwikpen U-100) (Unknown Strength) INSULN.PEN (Unknown Dose) SEE SLIDING SCALE DIABETES (Reported) Labetalol HCl 300 MG TABLET 1 TAB PO BID BP (Reported) Lidocaine (Lidoderm) 5 % ADH..PATCH 1 PAT TOP PRN LOWER BACK (Reported) may wear up to 12 hours Linagliptin (Tradjenta) 5 MG TABLET 1 TAB PO 1700 DIABETES (Reported) Lisinopril 10 MG TABLET 1 TAB PO BID HYPERTENSION (Reported) Methimazole 5 MG TABLET 0.5 TAB PO DAILY THYROID (Reported) Multivitamin (Daily Multiple) 1 TAB TAB 1 TAB PO QPM SUPPLEMENT (Reported) Prednisone 2.5 MG TABLET 1 TAB PO DAILY GOUT (Reported) Tylenol With Codeine (Tylenol With Codeine #3 Tablet) 300 MG-30 MG TABLET 1-2 TAB PO Q4-6 PRN PRN PAIN Vitamin D (Vitamin D3) 2,000 IU SGL 1 TAB PO QPM SUPPLEMENT (Reported) Warfarin Sodium 2 MG TABLET 1 TAB PO 1700 BLOOD THINNER (Reported) Past History Travel History Traveled to [place] past 21 day No Medical History Neurological: NONE EENT: cataracts Cardiovascular: CHF, hypertension, hyperlipidemia, AORTIC ANEURYSM Respiratory: NONE Gastrointestinal: HAS BLEED- ?FROM WHERE Hepatic: cholelithiasis Renal: ACUTE KIDNEY FAILURE Musculoskeletal: chronic back pain, gout, HAD BACK SX- HAS CAGE Psychiatric: anxiety Endocrine: diabetes, hyperthyroidism Blood Disorders: anemia Cancer(s): colon/rectal cancer PHYSICAL MEDICINE PHYSICIAN/Reproductive: miscarriage History of MRSA: No History of VRE: No History of CDIFF: No Tetanus Vaccine: 04/24/15 Surgical History Surgical History: cholecystectomy, spinal fusion, L BREAST NIPPLE REMOVED L HIP ORIF Past Family/Social History Family History Relations & Conditions if any BROTHER (Pancreatic cancer). Relation not specified for: Cancer of small intestine FH: diabetes mellitus FH: hypertension FH: pancreatic cancer Psychosocial History Who Do You Live With? child Services at Home: None Smoking Status: Never Smoked ETOH Use: denies use Illicit Drug Use: denies illicit drug use Functional Ability ADLs Independent: dressing, eating, toileting, bathing. Ambulation: cane, walker IADLs Independent: shopping, housework, finances, food prep, telephone, transportation , medication admin. Review of Systems Review of Systems Constitutional: Reports: see HPI. Exam & Diagnostic Data Last 24 Hrs of Vital Signs/I&O Vital Signs Date Time Temp Pulse Resp B/P Pulse O2 O2 Flow FiO2 Ox Delivery Rate 06/11 2213 99.3 88 20 150/70 94 06/11 2139 88 150/70 06/11 1653 99.4 82 18 167/72 96 Room Air Room Air 06/11 1508 98.2 84 18 148/72 97 Room Air 06/11 1230 98.4 88 20 166/78 98 Room Air 06/11 1000 98.9 93 20 175/71 99 Room Air Intake & Output 06/11 1600 06/11 0800 06/11 0000 Intake Total 500 Output Total Balance 500 Intake, IV 500 Patient 164 lb Weight Physical Exam General Appearance Alert, Oriented X3, Cooperative, No Acute Distress Skin No Rashes Cardiovascular Normal S1, Normal S2, systolic murmur present in the parasteernal area. Lungs b/l basal crackles present Abdomen Normal Bowel Sounds, Soft, No Tenderness Neurological Normal Speech, Sensation Intact Extremities right shoulder exam, swelling seen compared to the left. tenderness present, ROM severly restricted. b/l pedal edema rght > left which is chronic Last 24 Hrs of Labs/Anil: Laboratory Tests 06/11/16 1840: Lymphocytes 2, % Normal PMNs 96, Fluid WBC 718658 H, Fld Total RBCs Counted 5050 H 06/11/16 1710: PT 17.6 H, INR 1.68 H 06/11/16 1214: Urine Color YEL, Urine Clarity CLEAR, Urine pH 6.0, Ur Specific [place] 1.015, Urine Protein NEG, Urine Ketones NEG, Urine Nitrite NEG, Urine Bilirubin NEG, Urine Urobilinogen 0.2, Ur Leukocyte Esterase SMALL H, Ur Microscopic SEDIMENT EXAMINED, Urine WBC 5-10 H, Ur Epithelial Cells FEW, Urine Hemoglobin NEG, Urine Glucose NEG 06/11/16 1027: Anion Gap 14, Estimated GFR 39 L, BUN/Creatinine Ratio 30.0 H, Glucose 159 H, Uric Acid 4.9, Calcium 8.3 L, Total Bilirubin 1.1, AST 27, ALT 41, Alkaline Phosphatase 102, Troponin I < 0.01, Rbj-A-Ewduzkfynxn Pept 2610 H, Total Protein 5.9 L, Albumin 3.2 L, Globulin 2.7, Albumin/Globulin Ratio 1.2, CBC w Diff MAN DIFF ORDERED, RBC 2.74 L, MCV 89.0, MCH 29.0, RDW 18.7 H, MPV 7.9, Gran % 88.8 H, Lymphocytes % 4.4 L, Monocytes % 6.6, Eosinophils % 0, Basophils % 0.2, Absolute Granulocytes 18.3 H, Absolute Lymphocytes 0.9 L, Absolute Monocytes 1.4 H, Absolute Eosinophils 0, Absolute Basophils 0, Platelet Estimate ADEQUATE, Polychromasia 1+, Hypochromic-Microcytic 1+, Poikilocytosis 1+, Anisocytosis 1+, PUBS MCHC 32.6 L Microbiology 06/11 1840 BODY FLUID: Body Fluid Culture - RES 06/11 1840 BODY FLUID: Gram Stain - RES 06/11 1710 BLOOD: Blood Culture - RECD 06/11 1500 BLOOD: Blood Culture - RECD 06/11 1214 URINE ROUT: Urine Culture - RECD Diagnostic Data EKG Results NSR, LVH Other Results CT UPPER EXTREMITY WITHOUT CONTRAST, RIGHT: Severe right glenohumeral osteoarthritis. Large joint effusion and bursal fluid collection which contains multiple foci of gas. Correlate for history of a penetrating injury or signs of infection. There could be a small fracture of an osteophyte along the inferior glenoid rim. Otherwise, no acute fracture is evident. Supraspinatus and infraspinatus calcific tendinitis with presumed full-thickness tearing, which may be extensive given the atrophy and fatty infiltration of the supraspinatus and infraspinatus muscles. Chronic-appearing fractures of mid and upper thoracic vertebral bodies. Assessment/Plan Assessment: Assessment and plan 1. Right shoulder pain with diminished range of motion status post fall: X-ray did not show any evidence of fracture. Her right shoulder pain with swelling could be secondary to trauma, but infection has to be ruled out for other diagnoses can be considered. Gout is also in differential given that she has history of gout. CT shoulder showed Large joint effusion and bursal fluid collection which contains multiple foci of gas. We have consulted orthopedic sx who did arthrocentesis of the shoulder with expression of turbid colored fluid. She was started on antibiotic after the tap. Blood cultures and urine cultures were sent in the ED which we will follow-up. Follow-up on cell count, still analysis and Gram stain. Will add on uric acid level which again is un reliable if in acute gout. We'll hold off on allopurinol to the get the results and restarted in a.m. Will obtain PT eval. Plan per surgery is to take the patient to OR in morning for arthroscopic right shoulder irrigation and debridement. Given history of congestive heart failure and moderately reduced ejection fraction we will obtain a cardiology consult for surgical clearance. 2. Diabetes mellitus recently started on insulin: We will continue her home dose of insulin and keep her on a NovoLog sliding scale. 3. Congestive heart failure with reduced ejection fraction on Lasix which we will continue. Currently stable 4. Hyperlipidemia: We will continue her statins. 5. Hypothyroidism: We will continue her methimazole 6. Gout: We will hold her allopurinol pending uric acid levels and crystal analysis. If normal will restart her medication a.m. 7. Status post hip replacement currently on warfarin. Her INR is 1.68 we will continue to hold warfarin with no bridging as she is going for procedure in a.m. Per family patient is very sensitive to narcotics and benzos. We will maintain caution in treating her pain. She responded well to codeine acetaminophen which we will continue. Full CODE STATUS DVT prophylaxis on warfarin Diabetic diet As Ranked By This Provider Problem List: 1. Shoulder contusion 2. Hypertension 3. Hyperglycemia 4. Fall Core Measures/Miscellaneous Acute Coronary Syndrome ACS Diagnosis: No Cerebrovascular Accident CVA/TIA Diagnosis: No Congestive Heart Failure CHF Diagnosis: No Venous Thromboembolism VTE Risk Factors: Age > 40 VTE Prophylaxis Ordered Inpt: [facility] prophylaxis d/t: No contraindications No VTE Pharm Prophylaxis d/t: No contraindications VTE Diagnosis: No VTE Type: NONE VTE Confirmed by (Test): NONE Severe Sepsis Severe Sepsis Present: No Septic Shock Septic Shock Present: No Miscellaneous Documentation Attending Case Discussed With: ELAINE LEDESMA,RODRIGO Primary Care Physician: CIARAN ENGLE MD Patient sees these Specialists Cardiology, rheum, endocri Level of Patient Care: General Medicine
[2016-06-11 22:13] VITALS: BP 150/70
--- NOTE | 2016-06-12 01:47 | Event Note ---
Event Note Event Note: The patient Revised Cardiac Risk Index for Pre-Operative Risk= 3 METs score = 4 Giving the patient past medical history, and she is on warfarin, patient will need podiatrist clearance, will contact cardiology tomorrow morning for preop clearance.
[2016-06-12 05:56] VITALS: BP 142/74
[2016-06-12 08:22] LABS: PT 17.1 SEC (9.4-12.5)
[2016-06-12 08:25] LABS: ABSOLUTE BASOPHIL COUNT 0 /CUMM (0.0-0.2); ABSOLUTE EOSINOPHIL COUNT 0 /CUMM (0.0-0.7); BASOPHIL % 0 % (0.0-2.0)
[2016-06-12 08:46] LABS: ABSOLUTE GRANULOCYTE CT 12.3 /CUMM (1.4-6.5); ABSOLUTE LYMPH COUNT 0.5 /CUMM (1.2-3.4); EOSINOPHIL % 0 % (0-5); HEMATOCRIT 20.8 % (37-47); MEAN CORPUSCULAR HGB 29.4 PG (27.0-31.0); MEAN CORPUSCULAR HGB CONC 33.1 G/DL (33.0-37.0); MEAN CORPUSCULAR VOLUME 88.8 FL (81.0-99.0); MEAN PLATELET VOLUME 8.4 FL (7.4-10.4); PLATELET COUNT 230 /CUMM (130-400); RBC DISTRIBUTION WIDTH 19.3 % (11.5-14.5); RED BLOOD CELL CT 2.34 /CUMM (4.20-5.40); WHITE BLOOD CELL COUNT 13.8 /CUMM (4.8-10.8)
--- NOTE | 2016-06-12 08:49 | PN- Housestaff ---
Subjective Follow-up For: Fall Right shoulder swelling ? Septic joint Subjective: seen and examined patient this morning is very emotional feels overwhelmed. Also states that she is in pain. Denies shortness of breath, chest pain, dizziness, abdominal pain Review of Systems Constitutional: Denies: chills, diaphoresis, fever, malaise, weakness, unexplained weight loss. Cardiovascular: Denies: chest pain, edema, orthopena, palpitations, peripheral edema, syncope. Respiratory: Denies: cough, hemoptysis, orthopnea, short of breath, sputum production, stridor, wheezing. Objective Last 24 Hrs of Vital Signs/I&O Vital Signs Date Time Temp Pulse Resp B/P Pulse O2 O2 Flow FiO2 Ox Delivery Rate 06/12 1009 70 130/80 06/12 0556 98.8 74 20 142/74 95 Room Air 06/11 2213 99.3 88 20 150/70 94 06/11 2139 88 150/70 06/11 1653 99.4 82 18 167/72 96 Room Air Room Air 06/11 1508 98.2 84 18 148/72 97 Room Air 06/11 1230 98.4 88 20 166/78 98 Room Air Intake & Output 06/12 1600 06/12 0800 06/12 0000 Intake Total 580 830 Output Total 100 150 300 Balance -100 430 530 Intake, IV 400 350 Intake, Oral 180 480 Output, Urine 100 150 300 Patient 0 lb Weight Physical Exam General Appearance: Alert, Oriented X3, Cooperative, No Acute Distress Cardiovascular: Normal S1, Normal S2 Lungs: Normal Air Movement Abdomen: Normal Bowel Sounds, Soft, No Tenderness Current Medications: Current Medications Sig/Sabina Start time Last Medication Dose Route Stop Time Status Admin Acetaminophen 1,000 MG Q6H 06/12 0945 AC 06/12 N/A 1 UNIT IV 06/13 0359 1006 Acetaminophen 650 MG Q6P PRN 06/11 1715 DC PO Ampicillin 2,000 MG Q8 06/12 1200 AC 06/12 Sodium Chloride 100 ML IV 1416 Aspirin Buffered 81 MG DAILY 06/12 1000 AC PO Atorvastatin Calcium 40 MG DAILY 06/12 1000 AC PO Cholecalciferol 2,000 IU DAILY 06/12 1000 AC PO Dextrose/Sodium 1,000 ML Q20H 06/11 1845 DC 06/11 Chloride IV 06/12 1444 1846 Docusate Sodium 100 MG DAILY 06/11 1654 AC 06/11 PO 1845 Duloxetine HCl 60 MG AT BEDTIME 06/11 2199 AC 06/11 PO 2139 Ferrous Sulfate 325 MG DAILY 06/12 1000 AC PO Insulin Aspart 0 TIDAC 06/12 799 CAN SC Insulin Aspart 0 TIDAC 06/12 08 CAN SC 06/12 08 Insulin Detemir 7 UNITS BID 06/11 2199 DC SC 06/11 220 Insulin Detemir 3 UNITS ONCE ONE 06/11 2199 DC 06/11 SC 06/11 2201 2148 Insulin Human Regular 0 Q6 06/11 2359 AC 06/12 SC 1209 Labetalol HCl 300 MG BID 06/11 220 AC 06/12 PO 1009 Lidocaine 5 ML ONCE ONE 06/12 1530 AC SC 06/12 1531 Lidocaine 1 PAT DAILY 06/11 165 AC 06/12 EXT 1006 Lidocaine 20 ML ONCE ONE 06/11 1545 DC ID 06/11 1546 Methimazole 2.5 MG DAILY 06/11 2199 AC 06/11 PO 2140 Methimazole 2.5 MG DAILY 06/11 165 DC PO Patient Medication 1 UNIT ONE NR 06/11 1730 [facility] ED 06/11 1800 Patient Medication 1 UNIT ONE NR 06/11 1730 [facility] ED 06/11 1800 Patient Medication 1 UNIT ONE NR 06/11 1730 [facility] ED 06/11 1800 Prednisone 2.5 MG DAILY 06/11 1656 AC 06/11 PO 202 Vancomycin HCl 1,000 MG DAILY@1900 06/11 1900 AL 06/11 Sodium Chloride 250 ML IV 2026 Last 24 Hrs of Lab/Anil Results Last 24 Hrs of Labs/Mics: Laboratory Tests 06/12/16 0600: Anion Gap 14, Estimated GFR 39 L, BUN/Creatinine Ratio 30.0 H, PT 17.1 H, INR 1.64 H, CBC w Diff NO MAN DIFF REQ, RBC 2.34 L, MCV 88.8, MCH 29.4, RDW 19.3 H, MPV 8.4, Gran % 89.0 H, Lymphocytes % 3.6 L, Monocytes % 7.4, Eosinophils % 0, Basophils % 0 L, Absolute Granulocytes 12.3 H, Absolute Lymphocytes 0.5 L, Absolute Monocytes 1.0 H, Absolute Eosinophils 0, Absolute Basophils 0, PUBS MCHC 33.1 06/11/16 1840: Lymphocytes 2, % Normal PMNs 96, Fluid WBC [id number] H, Fld Total RBCs Counted 5050 H 06/11/16 1710: PT 17.6 H, INR 1.68 H Microbiology 06/11 1839 BODY FLUID: Body Fluid Culture - RES BETA STREP GROUP G 06/11 1839 BODY FLUID: Gram Stain - RES 06/11 1709 BLOOD: Blood Culture - RES GRAM POSITIVE COCCI Assessment/Plan Assessment: 80-year-old woman with past medical history of diabetes, CHF, hypertension, hyperlipidemia, hyperthyroidism, colon cancer status post hemicolectomy, coronary artery disease status post bare metal stent, thoracic aortic aneurysm, recently discharged after right hip arthroplasty on 05/11/[address] Leon presents from home after a fall 2 days ago. Recent steroid shot on the right shoulder about one week ago for osteoarthritis. 1. Right shoulder pain with possible septic arthritis: Status post arthrocentesis of the right shoulder on 06/11/2016, expressed a turbid fluid with white count of more than 300,000. She received 1 dose of vancomycin 1 g 1 pending Gram stain. Gram stain and blood cultures results were positive for beta strep. Infectious disease consult was up in recommended to start patient on ampicillin. Patient is currently nothing by mouth for possible debridement of the right shoulder joint pending cardiac clearance. We will continue IV antibiotics pending further sensitivity. Continue with Tylenol for pain as patient cannot tolerate benzos and narcotics. Her family becomes more delirious. Patient is currently nothing by mouth. 2. Acute blood loss anemia in the setting of anticoagulation with warfarin: INR on admission was 1.68 warfarin was held in anticipation for shoulder joint aspiration and debridement. Which dropped from 7.9-6.9. Decision was made to transfuse 2 units. Platelets consult within normal limits. 3. Heart failure with preserved ejection fraction: Echocardiogram in 2016 showed an ejection fraction of 40%. Chest x-ray done today showed mild central venous vascular congestion without overt pulmonary edema. Patient appears clinically stable. Will await further recommendation from cardiology for clearance. Lasix on hold. 4. Diabetic mellitus: Take units of Levemir at bedtime. Will reduce it to 3 units twice a day given she is nothing by mouth. We'll continue on IV fluids at a very low maintenance rate, watching saturation. 4. Hyperlipidemia: We will continue her statins. 5. Hypothyroidism: We will continue her methimazole 6. Gout: We will continue her got medications once patient is able to eat by mouth. Full CODE STATUS DVT prophylaxis on ALPS NPO Problem List: 1. Septic arthritis 2. Fall 3. Shoulder contusion 4. Hypertension 5. Hyperglycemia 6. Diastolic CHF 7. Diabetes 8. Hip fracture Pain Ratin Pain Location: Right shoulder Pain Goal: Pain 4 or less Pain Plan: IV Tylenol Tomorrow's Labs & Rationales: Will need labs, clinically unstable
--- NOTE | 2016-06-12 11:07 | RADIOLOGY REPORT ---
EXAMINATION: XR PORTABLE CHEST CLINICAL INFORMATION: History of CHF preop evaluation COMPARISON: Chest x-ray 05/11/2016 TECHNIQUE: AP semierect portable chest x-ray FINDINGS: Heart size is mildly enlarged and unchanged in size and contour. The thoracic aorta remains tortuous and ectatic. A moderately large right-sided thyroid mass with extrinsic compression on the trachea is unchanged. There is mild central vascular prominence which is nonsignificantly changed from the most recent prior study. There is no pulmonary edema. No focal consolidation or atelectasis is seen. There is some presumed extrinsic artifact over the right shoulder and scapula. IMPRESSION: No acute findings are seen in the chest x-ray. Mild cardiomegaly and ectatic thoracic aorta unchanged. Mild central vascular congestion without overt pulmonary edema, unchanged. Thyroid mass on the right unchanged.
--- NOTE | 2016-06-12 11:21 | Cons- Infect Disease ---
General Information and HPI Consulting Request Date of Consult: 06/12/16 Requested By: ELAINE LEDESMA,RODRIGO Reason for Consult: Septic right shoulder Source of Information: patient, old records History of Present Illness: This is an 81-year-old woman with diabetes, gout, maintained on prednisone 2.5 mg a day, and osteoarthritis, status post steroid injections to both knees every 3 months and, more recently, to the right shoulder, most recently approximately one week prior to admission, status post ORIF of a left hip fracture over 8 months prior to admission after a fall and right hemiarthroplasty one month prior to admission after another fall, with 1 g of Cefazolin prophylaxis given prior to each procedure, discharged to a short-term rehabilitation facility on Coumadin 3 days postop, and, subsequently, discharged home, admitted on June 11 after a fall onto her left side with the complaint of right shoulder pain. On admission she was afebrile. Laboratory data revealed a white blood cell count of 21,000, H&H 8 and 24, BUN/creatinine 39 and 1.3, normal liver enzymes, INR 1.68. Urinalysis 5-10 WBCs. X-ray of her right shoulder revealed marked diffuse osteopenia. X-ray of the right hip showed satisfactory alignment of the prosthesis with no evidence of any loosening or superimposed fracture. X-ray of the pelvis was negative for any acute process. CT of the right upper extremity revealed a large joint effusion and a large amount of fluid in the subacromial subdeltoid bursa, with foci of gas within the joint and bursal fluid collection, with severe right glenohumeral osteoarthritis. She underwent aspiration of the right shoulder joint, with aspiration of turbid fluid, with cell count revealing 380,000 white blood cells, and she is scheduled for arthroscopic drainage and debridement of the right shoulder, pending Cardiology clearance, later today. She was begun on Vancomycin. This morning blood cultures 2 were reported positive for gram-positive cocci in chains. She has remained afebrile since admission. She does note pain in the right shoulder, but denies any pain in the right or left hip. Allergies/Medications Allergies: Coded Allergies: hydromorphone (From DILAUDID) (hallucinations 05/10/16) morphine (hallucinations 05/10/16) oxycodone (hallucinations 05/10/16) Home Med List: Alendronate Sodium 70 MG TABLET 1 TAB PO QSUN BONES (Reported) in the morning, at least 30 minutes before the first food, beverage, or medication of the day Allopurinol 100 MG TAB 2 TAB PO QAM GOUT (Reported) Aspirin (Ecotrin*) 81 MG TABLET.DR 1 TAB PO DAILY HEART HEALTH (Reported) Atorvastatin Calcium 40 MG TABLET 1 TAB PO DAILY CHOLESTEROL (Reported) Biotin 10,000 MCG CAPSULE 1 CAP PO 1700 SUPPLEMENT (Reported) Calcium Carbonate/Vitamin D3 (Calcium 500 + D Tablet) 500 MG-400 TABLET 1 TAB PO DAILY SUPPLEMENT (Reported) Cyanocobalamin (Vitamin B-12) 1,000 MCG TABLET 1 TAB PO QAM SUPPLEMENT ( Reported) Docusate Sodium 100 MG CAPSULE 1 TAB PO DAILY CONSTIPATION Duloxetine HCl (Cymbalta) 60 MG CAPSULE. 1 CAP PO QHS MENTAL HEALTH ( Reported) Ferrous Sulfate 325 MG TABLET 1 TAB PO QAM SUPPLEMENT (Reported) Furosemide (Lasix) 40 MG TABLET 1 TAB PO QAM DIURETIC (Reported) Insulin Glargine,Hum.rec.anlog (Lantus Solostar) 100 UNIT/ML (3 ML) INSULN.PEN 15 UNIT SC QPM DIABETES (Reported) Insulin Lispro (Humalog Kwikpen U-100) (Unknown Strength) INSULN.PEN (Unknown Dose) SEE SLIDING SCALE DIABETES (Reported) Labetalol HCl 300 MG TABLET 1 TAB PO BID BP (Reported) Lidocaine (Lidoderm) 5 % ADH..PATCH 1 PAT TOP PRN LOWER BACK (Reported) may wear up to 12 hours Linagliptin (Tradjenta) 5 MG TABLET 1 TAB PO 1700 DIABETES (Reported) Lisinopril 10 MG TABLET 1 TAB PO BID HYPERTENSION (Reported) Methimazole 5 MG TABLET 0.5 TAB PO DAILY THYROID (Reported) Multivitamin (Daily Multiple) 1 TAB TAB 1 TAB PO QPM SUPPLEMENT (Reported) Prednisone 2.5 MG TABLET 1 TAB PO DAILY GOUT (Reported) Tylenol With Codeine (Tylenol With Codeine #3 Tablet) 300 MG-30 MG TABLET 1-2 TAB PO Q4-6 PRN PRN PAIN Vitamin D (Vitamin D3) 2,000 IU SGL 1 TAB PO QPM SUPPLEMENT (Reported) Warfarin Sodium 2 MG TABLET 1 TAB PO 1700 BLOOD THINNER (Reported) Past History Travel History Traveled to [place] past 21 day No Medical History Neurological: NONE EENT: cataracts Cardiovascular: aortic aneurysm, CAD (status post stent), CHF, hypertension, hyperlipidemia, AORTIC ANEURYSM Respiratory: lung nodules Gastrointestinal: GERD, HAS BLEED- ?FROM WHERE Hepatic: cholelithiasis Renal: ACUTE KIDNEY FAILURE, recurrent urinary tract infection Musculoskeletal: chronic back pain, gout, osteoarthritis Psychiatric: anxiety Endocrine: diabetes, hyperthyroidism, right thyroid goiter Blood Disorders: anemia Cancer(s): colon/rectal cancer 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 Relation not specified for: Cancer of small intestine FH: diabetes mellitus FH: hypertension FH: pancreatic cancer Psychosocial History Who Do You Live With? child Services at Home: None Smoking Status: Never Smoked ETOH Use: denies use Illicit Drug Use: denies illicit drug use Functional Ability ADLs Independent: dressing, eating, toileting, bathing. Ambulation: cane, walker IADLs Independent: shopping, housework, finances, food prep, telephone, transportation , medication admin. Review of Systems Review of Systems Constitutional: Denies: chills, fever. Musculoskeletal: Reports: joint pain (bilateral knees). All Other Systems: Reviewed and Negative Exam & Diagnostic Data Last 24 Hrs of Vital Signs/I&O Vital Signs Date Time Temp Pulse Resp B/P Pulse O2 O2 Flow FiO2 Ox Delivery Rate 06/12 1009 70 130/80 06/12 0556 98.8 74 20 142/74 95 Room Air 06/11 2213 99.3 88 20 150/70 94 06/11 2139 88 150/70 06/11 1653 99.4 82 18 167/72 96 Room Air Room Air 06/11 1508 98.2 84 18 148/72 97 Room Air 06/11 1230 98.4 88 20 166/78 98 Room Air Intake & Output 06/12 1600 06/12 0800 06/12 0000 Intake Total 580 830 Output Total 100 150 300 Balance -100 430 530 Intake, IV 400 350 Intake, Oral 180 480 Output, Urine 100 150 300 Patient 0 lb Weight Physical Exam Other Physical Findings: She is awake and alert in no acute distress. She is afebrile. Skin reveals no rash. HEENT exam is negative. Neck is supple with no adenopathy. Lungs are clear. Heart irregular rhythm with a 1/6 systolic ejection murmur. Abdomen is soft, nontender with positive bowel sounds. Back no CVA tenderness. Extremities right shoulder anterior swelling, with no erythema, decreased range of motion with tenderness on palpation; right hip incision with mild erythema and induration, with no tenderness or drainage; no cyanosis, clubbing or edema of the lower extremities, with pulses 1+ and equal. Neuro is without focality. Last 24 Hours of Lab Results: Laboratory Tests 06/12 06/11 06/11 0600 1840 1710 Chemistry Sodium (137 - 145 mmol/L) 134 L Potassium (3.5 - 5.1 mmol/L) 4.2 Chloride (98 - 107 mmol/L) 98 Carbon Dioxide (22 - 30 mmol/L) 22 Anion Gap (5 - 16) 14 BUN (7 - 17 mg/dL) 39 H Creatinine (0.5 - 1.0 mg/dL) 1.3 H Estimated GFR (>60 ml/min) 39 L BUN/Creatinine Ratio (7 - 25 %) 30.0 H Coagulation PT (9.4 - 12.5 SEC) 17.1 H 17.6 H INR (0.90 - 1.19) 1.64 H 1.68 H Hematology CBC w Diff NO MAN DIFF REQ WBC (4.8 - 10.8 /CUMM) 13.8 H RBC (4.20 - 5.40 /CUMM) 2.34 L Hgb (12.0 - 16.0 G/DL) 6.9 *L Hct (37 - 47 %) 20.8 L MCV (81.0 - 99.0 FL) 88.8 MCH (27.0 - 31.0 PG) 29.4 RDW (11.5 - 14.5 %) 19.3 H Plt Count (130 - 400 /CUMM) 230 MPV (7.4 - 10.4 FL) 8.4 Gran % (42.2 - 75.2 %) 89.0 H Lymphocytes % (20.5 - 51.1 %) 3.6 L Monocytes % (1.7 - 9.3 %) 7.4 Eosinophils % (0 - 5 %) 0 Basophils % (0.0 - 2.0 %) 0 L Absolute Granulocytes (1.4 - 6.5 /CUMM) 12.3 H Absolute Lymphocytes (1.2 - 3.4 /CUMM) 0.5 L Lymphocytes (%) 2 Absolute Monocytes (0.10 - 0.60 /CUMM) 1.0 H Absolute Eosinophils (0.0 - 0.7 /CUMM) 0 Absolute Basophils (0.0 - 0.2 /CUMM) 0 % Normal PMNs (%) 96 PUBS MCHC (33.0 - 37.0 G/DL) 33.1 Other Body Source Fluid WBC (0 - 5 /CUMM) 558953 H Fld Total RBCs Counted (0 /CUMM) 5050 H 06/11 1214 Urines Urine Color (YEL,AMB,STR) YEL Urine Clarity (CLEAR) CLEAR Urine pH (5.0 - 8.0) 6.0 Ur Specific [place] (1.001 - 1.035) 1.015 Urine Protein (NEG,<30 MG/DL) NEG Urine Ketones (NEG) NEG Urine Nitrite (NEG) NEG Urine Bilirubin (NEG) NEG Urine Urobilinogen (0.1 - 1.0 EU/dl) 0.2 Ur Leukocyte Esterase (NEG) SMALL H Ur Microscopic SEDIMENT EXAMINED Urine WBC (0 - 2 /HPF) 5-10 H Ur Epithelial Cells (NONE,FEW) FEW Urine Hemoglobin (NEG) NEG Urine Glucose (N MG/DL) NEG Last 24 Hours of Nail Results: Blood cultures 2 June 11 positive for gram positive cocci in chains Right shoulder joint aspiration positive for Group G strep Urine culture June 11 negative Diagnostic Data Recent Imaging Findings: X-ray of her right shoulder revealed marked diffuse osteopenia. X-ray of the right hip showed satisfactory alignment of the prosthesis with no evidence of any loosening or superimposed fracture. X-ray of the pelvis was negative for any acute process. CT of the right upper extremity revealed a large joint effusion and a large amount of fluid in the subacromial subdeltoid bursa, with foci of gas within the joint and bursal fluid collection, with severe right glenohumeral osteoarthritis. Assessment/Plan Assessment/Plan Impression: This is an 81-year-old woman with diabetes, gout, osteoarthritis, status post right hip hemiarthroplasty one month prior to admission and a right shoulder steroid injection approximately one week prior to admission, admitted on June 11 after a fall at home, found to have swelling of the right shoulder, with fluid in the joint on CT scan, status post aspiration of turbid fluid, with culture positive for Group G strep and with positive blood cultures for gram-positive cocci in chains. Her clinical picture is consistent with sepsis secondary to a septic right shoulder joint, likely related to the recent steroid injection, and she is scheduled for arthroscopic drainage/debridement in the OR. She does have some erythema and induration over the right hip and need to consider the possibility that she has seeded the recently replaced right hip. She is quite anemic, suggesting blood loss, perhaps into her right hip, and likely related to her Coumadin. Of note she did drop her H&H after her recent surgery, requiring blood transfusions. Suggestion: 1. Await OR for arthroscopic debridement of the right shoulder joint 2. Would consider aspiration of the right hip induration 3. Further evaluation and management of her anemia per Medicine and Orthopedics 4. Discontinue Vancomycin 5. Begin Ampicillin 2 g IV every 8 hours Consult Acknowledgment - Thank you for your consult request.
--- NOTE | 2016-06-12 11:31 | PN- Orthopedic ---
Subjective Subjective: Patient continues to complain of right shoulder pain, as expected. denies fever or chills. She is anemic this morning and awaiting blood transfusion. Cultures taken from the right shoulder reveal group G strep. Otherwise asymptomatic. Objective Vital Signs and I&Os Vital Signs Date Time Temp Pulse Resp B/P Pulse O2 O2 Flow FiO2 Ox Delivery Rate 06/12 1009 70 130/80 06/12 0556 98.8 74 20 142/74 95 Room Air 06/11 2213 99.3 88 20 150/70 94 06/11 2139 88 150/70 06/11 1653 99.4 82 18 167/72 96 Room Air Room Air 06/11 1508 98.2 84 18 148/72 97 Room Air 06/11 1230 98.4 88 20 166/78 98 Room Air Intake & Output 06/12 1600 06/12 0800 06/12 0000 06/11 1600 06/11 0800 06/11 0000 Intake Total 580 830 500 Output Total 100 150 300 Balance -100 430 530 500 Intake, IV 400 350 500 Intake, Oral 180 480 Output, Urine 100 150 300 Patient 0 lb 164 lb Weight Physical Exam: Gen.: Patient is awake and alert. No acute distress. Extremities: The right shoulder remains tender, especially posteriorly. Range of motion of the right upper extremity is limited due to pain. The right hip incision is intact, but slightly erythematous. There appears to be some fluctuance, concerning for a small fluid collection. No drainage is noted. Results Last 48 Hours of Labs: Laboratory Tests 06/12 06/11 06/11 0600 1840 1710 Chemistry Sodium (137 - 145 mmol/L) 134 L Potassium (3.5 - 5.1 mmol/L) 4.2 Chloride (98 - 107 mmol/L) 98 Carbon Dioxide (22 - 30 mmol/L) 22 Anion Gap (5 - 16) 14 BUN (7 - 17 mg/dL) 39 H Creatinine (0.5 - 1.0 mg/dL) 1.3 H Estimated GFR (>60 ml/min) 39 L BUN/Creatinine Ratio (7 - 25 %) 30.0 H Coagulation PT (9.4 - 12.5 SEC) 17.1 H 17.6 H INR (0.90 - 1.19) 1.64 H 1.68 H Hematology CBC w Diff NO MAN DIFF REQ WBC (4.8 - 10.8 /CUMM) 13.8 H RBC (4.20 - 5.40 /CUMM) 2.34 L Hgb (12.0 - 16.0 G/DL) 6.9 *L Hct (37 - 47 %) 20.8 L MCV (81.0 - 99.0 FL) 88.8 MCH (27.0 - 31.0 PG) 29.4 RDW (11.5 - 14.5 %) 19.3 H Plt Count (130 - 400 /CUMM) 230 MPV (7.4 - 10.4 FL) 8.4 Gran % (42.2 - 75.2 %) 89.0 H Lymphocytes % (20.5 - 51.1 %) 3.6 L Monocytes % (1.7 - 9.3 %) 7.4 Eosinophils % (0 - 5 %) 0 Basophils % (0.0 - 2.0 %) 0 L Absolute Granulocytes (1.4 - 6.5 /CUMM) 12.3 H Absolute Lymphocytes (1.2 - 3.4 /CUMM) 0.5 L Lymphocytes (%) 2 Absolute Monocytes (0.10 - 0.60 /CUMM) 1.0 H Absolute Eosinophils (0.0 - 0.7 /CUMM) 0 Absolute Basophils (0.0 - 0.2 /CUMM) 0 % Normal PMNs (%) 96 PUBS MCHC (33.0 - 37.0 G/DL) 33.1 Other Body Source Fluid WBC (0 - 5 /CUMM) 632761 H Fld Total RBCs Counted (0 /CUMM) 5050 H 06/11 06/11 1214 1027 Chemistry Sodium (137 - 145 mmol/L) 135 L Potassium (3.5 - 5.1 mmol/L) 4.5 Chloride (98 - 107 mmol/L) 98 Carbon Dioxide (22 - 30 mmol/L) 23 Anion Gap (5 - 16) 14 BUN (7 - 17 mg/dL) 39 H Creatinine (0.5 - 1.0 mg/dL) 1.3 H Estimated GFR (>60 ml/min) 39 L BUN/Creatinine Ratio (7 - 25 %) 30.0 H Glucose (65 - 99 mg/dL) 159 H Uric Acid (2.5 - 6.2 mg/dL) 4.9 Calcium (8.4 - 10.2 mg/dL) 8.3 L Total Bilirubin (0.2 - 1.3 mg/dL) 1.1 AST (14 - 36 U/L) 27 ALT (9 - 52 U/L) 41 Alkaline Phosphatase (<127 U/L) 102 Troponin I (< 0.11 ng/ml) < 0.01 Vvb-[id number]-Rvijsvzsurf Pept (<125 pg/mL) 2610 H Total Protein (6.3 - 8.2 g/dL) 5.9 L Albumin (3.5 - 5.0 g/dL) 3.2 L Globulin (1.9 - 4.2 gm/dL) 2.7 Albumin/Globulin Ratio (1.1 - 2.2 %) 1.2 Hematology CBC w Diff MAN DIFF ORDERED WBC (4.8 - 10.8 /CUMM) 20.6 H RBC (4.20 - 5.40 /CUMM) 2.74 L Hgb (12.0 - 16.0 G/DL) 7.9 L Hct (37 - 47 %) 24.4 L MCV (81.0 - 99.0 FL) 89.0 MCH (27.0 - 31.0 PG) 29.0 RDW (11.5 - 14.5 %) 18.7 H Plt Count (130 - 400 /CUMM) 284 MPV (7.4 - 10.4 FL) 7.9 Gran % (42.2 - 75.2 %) 88.8 H Lymphocytes % (20.5 - 51.1 %) 4.4 L Monocytes % (1.7 - 9.3 %) 6.6 Eosinophils % (0 - 5 %) 0 Basophils % (0.0 - 2.0 %) 0.2 Absolute Granulocytes (1.4 - 6.5 /CUMM) 18.3 H Absolute Lymphocytes (1.2 - 3.4 /CUMM) 0.9 L Absolute Monocytes (0.10 - 0.60 /CUMM) 1.4 H Absolute Eosinophils (0.0 - 0.7 /CUMM) 0 Absolute Basophils (0.0 - 0.2 /CUMM) 0 Platelet Estimate (ADEQUATE) ADEQUATE Polychromasia 1+ Hypochromic-Microcytic 1+ Poikilocytosis 1+ Anisocytosis 1+ PUBS MCHC (33.0 - 37.0 G/DL) 32.6 L Urines Urine Color (YEL,AMB,STR) YEL Urine Clarity (CLEAR) CLEAR Urine pH (5.0 - 8.0) 6.0 Ur Specific [place] (1.001 - 1.035) 1.015 Urine Protein (NEG,<30 MG/DL) NEG Urine Ketones (NEG) NEG Urine Nitrite (NEG) NEG Urine Bilirubin (NEG) NEG Urine Urobilinogen (0.1 - 1.0 EU/dl) 0.2 Ur Leukocyte Esterase (NEG) SMALL H Ur Microscopic SEDIMENT EXAMINED Urine WBC (0 - 2 /HPF) 5-10 H Ur Epithelial Cells (NONE,FEW) FEW Urine Hemoglobin (NEG) NEG Urine Glucose (N MG/DL) NEG Assessment/Plan Assessment/Plan Patient is an 81-year-old female with past medical history significant for chf, diabetes, hypertension, gout, hyperlipidemia, coronary artery disease, goiter, who is now hospital day #2 with bacteremia and a septic right shoulder. Preliminary shoulder cultures revealed group G strep. Plan: -Patient will need washout intraoperatively. Please continue to keep her npo. -We are awaiting cardiology clearance. -Agree with slow blood transfusion due to baseline anemia of unknown origin. -Vancomycin can be discontinued and ampicillin can be started to narrow spectrum as per ID recommendations. Continue to monitor temps. -I agree with ID that we may need to consider aspiration of the right hip, but I will discuss this with the attending. -Continue medical management per primary team.
--- NOTE | 2016-06-12 13:00 | PN- Att Addend ---
Attending Addendum Attending Brief Note atient seen and examined in the emergency room. Plan of care discussed with the medical team and the patient. Available lab work and radiology test reports were reviewed. Right shoulder was tapped by orthopedic yesterday. Patient has been basically afebrile. However she continues to have severe pain in the shoulder and is still unable to move it. Vital Signs Date Time Temp Pulse Resp B/P Pulse O2 O2 Flow FiO2 Ox Delivery Rate 06/12 1009 70 130/80 06/12 0556 98.8 74 20 142/74 95 Room Air 06/11 2213 99.3 88 20 150/70 94 06/11 2139 88 150/70 06/11 1653 99.4 82 18 167/72 96 Room Air Room Air 06/11 1508 98.2 84 18 148/72 97 Room Air Intake & Output 06/12 1600 06/12 0800 06/12 0000 Intake Total 580 830 Output Total 100 150 300 Balance -100 430 530 Intake, IV 400 350 Intake, Oral 180 480 Output, Urine 100 150 300 Patient 0 lb Weight Exam: General: Patient awake alert oriented without any distress CVS: S1 plus S2 without any murmur or gallops Chest: Few scattered crepitation without any wheeze. There is no respiratory distress. 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 Range of motion is very limited. Area of the right shoulder slightly warm. Laboratory Tests 06/12 06/11 06/11 0600 1840 1710 Chemistry Sodium (137 - 145 mmol/L) 134 L Potassium (3.5 - 5.1 mmol/L) 4.2 Chloride (98 - 107 mmol/L) 98 Carbon Dioxide (22 - 30 mmol/L) 22 Anion Gap (5 - 16) 14 BUN (7 - 17 mg/dL) 39 H Creatinine (0.5 - 1.0 mg/dL) 1.3 H Estimated GFR (>60 ml/min) 39 L BUN/Creatinine Ratio (7 - 25 %) 30.0 H Coagulation PT (9.4 - 12.5 SEC) 17.1 H 17.6 H INR (0.90 - 1.19) 1.64 H 1.68 H Hematology CBC w Diff NO MAN DIFF REQ WBC (4.8 - 10.8 /CUMM) 13.8 H RBC (4.20 - 5.40 /CUMM) 2.34 L Hgb (12.0 - 16.0 G/DL) 6.9 *L Hct (37 - 47 %) 20.8 L MCV (81.0 - 99.0 FL) 88.8 MCH (27.0 - 31.0 PG) 29.4 RDW (11.5 - 14.5 %) 19.3 H Plt Count (130 - 400 /CUMM) 230 MPV (7.4 - 10.4 FL) 8.4 Gran % (42.2 - 75.2 %) 89.0 H Lymphocytes % (20.5 - 51.1 %) 3.6 L Monocytes % (1.7 - 9.3 %) 7.4 Eosinophils % (0 - 5 %) 0 Basophils % (0.0 - 2.0 %) 0 L Absolute Granulocytes (1.4 - 6.5 /CUMM) 12.3 H Absolute Lymphocytes (1.2 - 3.4 /CUMM) 0.5 L Lymphocytes (%) 2 Absolute Monocytes (0.10 - 0.60 /CUMM) 1.0 H Absolute Eosinophils (0.0 - 0.7 /CUMM) 0 Absolute Basophils (0.0 - 0.2 /CUMM) 0 % Normal PMNs (%) 96 PUBS MCHC (33.0 - 37.0 G/DL) 33.1 Other Body Source Fluid WBC (0 - 5 /CUMM) 656702 H Fld Total RBCs Counted (0 /CUMM) 5050 H Microbiology Date/Time Procedure - Status Source Growth 06/11 1840 Body Fluid Culture - RES BODY FLUID BETA STREP GROUP G 06/11 1840 Gram Stain - RES BODY FLUID 06/11 1710 Blood Culture - RES BLOOD GRAM POSITIVE COCCI 06/11 1500 Blood Culture - RES BLOOD GRAM POSITIVE COCCI Assessment and problem list * Multiple falls at home * Right shoulder effusion and pain likely due to septic arthritis. This is likely due to beta strep. * Beta strep bacteremia and sepsis- we'll need to evaluate the right hip to ensure that this was the source of bacteremia and seeding of the right shoulder. Patient may need a bone scan or right hip aspiration. * History of CAD * History of CHF * History of diabetes * Anemia with the drop in hematocrit without any signs of active bleed Plan: * Case discussed with infectious disease; plan is to continue ampicillin * Patient needs to go to or for joint washing. Waiting for cardiology evaluation before this procedure. * Continue all home medication except Lasix and lisinopril. Lasix and lisinopril should be held. Follow-up repeat creatinine today. * Check guaiac stool; check iron studies. Repeat CBC tomorrow
[2016-06-12 14:25] VITALS: BP 100/60
--- NOTE | 2016-06-12 15:03 | Cons- Cardiology ---
General Information and HPI Consulting Request Date of Consult: 06/12/16 Requested By: ELAINE LEDESMA,RODRIGO Reason for Consult: Preperative evaluation for urgent debridement of infected shoulder joint. Source of Information: patient, old records Exam Limitations: patient's age History of Present Illness: Mrs. Xena Marr is an 81-year-old female with a history of obesity, hypertension, dyslipidemia, gout, diabetes mellitus, pulmonary nodules, right thyroid goiter, ascending thoracic aortic aneurysm, previous heart failure with mildly dilated left ventricle and mild LV systolic dysfunction, mild concentric left ventricular hypertrophy, physiologic valvular regurgitation, and mild pulmonary hypertension (estimated PA systolic pressure 41 mmHg) by previous echocardiography (02/20/2014), and coronary artery disease s/p Integrity bare- metal stent (BMS) deployed to a high grade LAD stenosis with no residual stenosis and THONY-3 flow (12/31/2014). Her last echocardiogram as documented by Dr. Almaraz in a recent consultation showed a mildly dilated left ventricle with normal wall thickness and mild global hypokinesis of the left ventricle with mildly reduced ejection fraction of 45-50%, right ventricle of normal size and function, mildly dilated left atrium, normal size right atrium, some age-related valvular changes, no pericardial effusion, and a normal size aortic root. The Doppler portion of the study revealed no evidence of hemodynamically significant aortic stenosis, mild aortic, trace mitral, and mild tricuspid regurgitation, normal estimated PA systolic pressure of 26 mmHg, and stage I diastolic dysfunction. This patient has had multiple falls including one just one month ago when she fractured her right hip which was repaired. She is apparently still on warfarin for that. She has become quite anemic. Her INR is currently subtherapeutic. The patient did have another fall injuring her right shoulder and this is now a septic joint which needs to be cleaned out. She is going to have this done very shortly. She also has possible right hip infection which needs to be addressed. At the current time the patient is not having any cardiac complaints. She is mildly tachycardic but her EKG does not show atrial fibrillation, just some atrial ectopy. The tachycardia is probably due to the anemia and infection. Allergies/Medications Allergies: Coded Allergies: hydromorphone (From DILAUDID) (hallucinations 05/10/16) morphine (hallucinations 05/10/16) oxycodone (hallucinations 05/10/16) Home Med List: Alendronate Sodium 70 MG TABLET 1 TAB PO QSUN BONES (Reported) in the morning, at least 30 minutes before the first food, beverage, or medication of the day Allopurinol 100 MG TAB 2 TAB PO QAM GOUT (Reported) Aspirin (Ecotrin*) 81 MG TABLET.DR 1 TAB PO DAILY HEART HEALTH (Reported) Atorvastatin Calcium 40 MG TABLET 1 TAB PO DAILY CHOLESTEROL (Reported) Biotin 10,000 MCG CAPSULE 1 CAP PO 1700 SUPPLEMENT (Reported) Calcium Carbonate/Vitamin D3 (Calcium 500 + D Tablet) 500 MG-400 TABLET 1 TAB PO DAILY SUPPLEMENT (Reported) Cyanocobalamin (Vitamin B-12) 1,000 MCG TABLET 1 TAB PO QAM SUPPLEMENT ( Reported) Docusate Sodium 100 MG CAPSULE 1 TAB PO DAILY CONSTIPATION Duloxetine HCl (Cymbalta) 60 MG CAPSULE. 1 CAP PO QHS MENTAL HEALTH ( Reported) Ferrous Sulfate 325 MG TABLET 1 TAB PO QAM SUPPLEMENT (Reported) Furosemide (Lasix) 40 MG TABLET 1 TAB PO QAM DIURETIC (Reported) Insulin Glargine,Hum.rec.anlog (Lantus Solostar) 100 UNIT/ML (3 ML) INSULN.PEN 15 UNIT SC QPM DIABETES (Reported) Insulin Lispro (Humalog Kwikpen U-100) (Unknown Strength) INSULN.PEN (Unknown Dose) SEE SLIDING SCALE DIABETES (Reported) Labetalol HCl 300 MG TABLET 1 TAB PO BID BP (Reported) Lidocaine (Lidoderm) 5 % ADH..PATCH 1 PAT TOP PRN LOWER BACK (Reported) may wear up to 12 hours Linagliptin (Tradjenta) 5 MG TABLET 1 TAB PO 1700 DIABETES (Reported) Lisinopril 10 MG TABLET 1 TAB PO BID HYPERTENSION (Reported) Methimazole 5 MG TABLET 0.5 TAB PO DAILY THYROID (Reported) Multivitamin (Daily Multiple) 1 TAB TAB 1 TAB PO QPM SUPPLEMENT (Reported) Prednisone 2.5 MG TABLET 1 TAB PO DAILY GOUT (Reported) Tylenol With Codeine (Tylenol With Codeine #3 Tablet) 300 MG-30 MG TABLET 1-2 TAB PO Q4-6 PRN PRN PAIN Vitamin D (Vitamin D3) 2,000 IU SGL 1 TAB PO QPM SUPPLEMENT (Reported) Warfarin Sodium 2 MG TABLET 1 TAB PO 1700 BLOOD THINNER (Reported) Current Medications: Current Medications Sig/Sabina Start time Last Medication Dose Route Stop Time Status Admin Acetaminophen 1,000 MG Q6H 06/12 0945 AC 06/12 N/A 1 UNIT IV 06/13 0359 1006 Acetaminophen 650 MG Q6P PRN 06/11 1715 DC PO Ampicillin 2,000 MG Q8 06/12 1200 AC 06/12 Sodium Chloride 100 ML IV 1416 Aspirin Buffered 81 MG DAILY 06/12 1000 AC PO Atorvastatin Calcium 40 MG DAILY 06/12 1000 AC PO Cholecalciferol 2,000 IU DAILY 06/12 1000 AC PO Dextrose/Sodium 1,000 ML Q20H 06/11 1845 DC 06/11 Chloride IV 06/12 1444 1846 Docusate Sodium 100 MG DAILY 06/11 1654 AC 06/11 PO 1845 Duloxetine HCl 60 MG AT BEDTIME 06/11 2200 AC 06/11 PO 2139 Ferrous Sulfate 325 MG DAILY 06/12 1000 AC PO Insulin Aspart 0 TIDAC 06/12 0800 CAN SC Insulin Aspart 0 TIDAC 06/12 0800 CAN SC 06/12 0801 Insulin Detemir 7 UNITS BID 06/11 2200 DC SC 06/11 2201 Insulin Detemir 3 UNITS ONCE ONE 06/11 2200 DC 06/11 SC 06/11 2201 2148 Insulin Human Regular 0 Q6 06/11 2359 AC 06/12 SC 1209 Labetalol HCl 300 MG BID 06/11 2200 AC 06/12 PO 1009 Lidocaine 1 PAT DAILY 06/11 1656 AC 06/12 EXT 1006 Lidocaine 20 ML ONCE ONE 06/11 1545 DC ID 06/11 1546 Methimazole 2.5 MG DAILY 06/11 2200 AC 06/11 PO 2140 Methimazole 2.5 MG DAILY 06/11 1657 DC PO Patient Medication 1 UNIT ONE NR 06/11 1730 NC Teaching ED 06/11 1800 Patient Medication 1 UNIT ONE NR 06/11 1730 NC Teaching ED 06/11 1800 Patient Medication 1 UNIT ONE NR 06/11 1730 NC Teaching ED 06/11 1800 Prednisone 2.5 MG DAILY 06/11 165 AC 06/11 PO 2026 Vancomycin HCl 1,000 MG DAILY@1900 06/11 1900 DC 06/11 Sodium Chloride 250 ML IV 2026 Review of Systems Review of Systems: She is only complaining of right shoulder pain at this time Past History Travel History Traveled to [place] past 21 day No Medical History Neurological: NONE EENT: cataracts Cardiovascular: aortic aneurysm, CAD (status post stent), CHF, hypertension, hyperlipidemia, AORTIC ANEURYSM Respiratory: lung nodules Gastrointestinal: GERD, HAS BLEED- ?FROM WHERE Hepatic: cholelithiasis Renal: ACUTE KIDNEY FAILURE recurrent urinary tract infection Musculoskeletal: chronic back pain, gout, osteoarthritis Psychiatric: anxiety Endocrine: diabetes, hyperthyroidism, right thyroid goiter Blood Disorders: anemia Cancer(s): colon/rectal cancer OPERATIONS RESEARCH DIRECTOR/Reproductive: miscarriage Surgical History Surgical History: cholecystectomy, colon resection (right hemicolectomy), hip replacement (right hemiarthroplasty), hysterectomy (partial), spinal fusion, L BREAST NIPPLE REMOVED L HIP ORIF uterine prolapse surgery status post left hip ORIF Family History Relations & Conditions If Any: BROTHER (Pancreatic cancer). Relation not specified for: Cancer of small intestine FH: diabetes mellitus FH: hypertension FH: pancreatic cancer Psychosocial History Who Do You Live With? child Services at Home: None Smoking Status: Never Smoked ETOH Use: denies use Illicit Drug Use: denies illicit drug use Functional Ability ADLs Independent: dressing, eating, toileting, bathing. Ambulation: cane, walker IADLs Independent: shopping, housework, finances, food prep, telephone, transportation , medication admin. Exam & Diagnostic Data Vital Signs and I&O Vital Signs Date Time Temp Pulse Resp B/P Pulse O2 O2 Flow FiO2 Ox Delivery Rate 06/12 1425 99.5 100 18 100/60 94 Room Air 06/12 1009 70 130/80 06/12 0556 98.8 74 20 142/74 95 Room Air 06/11 2213 99.3 88 20 150/70 94 06/11 2139 88 150/70 06/11 1653 99.4 82 18 167/72 96 Room Air Room Air 06/11 1508 98.2 84 18 148/72 97 Room Air Intake & Output 06/12 1600 06/12 0000 06/11 1600 06/11 0000 Intake Total 580 830 500 Output Total 100 150 300 Balance -100 430 530 500 Intake, IV 400 350 500 Intake, Oral 180 480 Output, Urine 100 150 300 Patient 0 lb 164 lb Weight Physical Exam: She is in mild pain from the right shoulder especially with movement. HEENT exam is normal Chest is clear to limited exam Heart reveals slightly irregular rhythm, mild tachycardia, grade 2/6 systolic ejection murmur at the base Abdomen is benign Extremities reveal 2+ edema of the legs Labs/Anil Results: Laboratory Tests 06/12 06/11 06/11 0600 1840 1710 Chemistry Sodium (137 - 145 mmol/L) 134 L Potassium (3.5 - 5.1 mmol/L) 4.2 Chloride (98 - 107 mmol/L) 98 Carbon Dioxide (22 - 30 mmol/L) 22 Anion Gap (5 - 16) 14 BUN (7 - 17 mg/dL) 39 H Creatinine (0.5 - 1.0 mg/dL) 1.3 H Estimated GFR (>60 ml/min) 39 L BUN/Creatinine Ratio (7 - 25 %) 30.0 H Coagulation PT (9.4 - 12.5 SEC) 17.1 H 17.6 H INR (0.90 - 1.19) 1.64 H 1.68 H Hematology CBC w Diff NO MAN DIFF REQ WBC (4.8 - 10.8 /CUMM) 13.8 H RBC (4.20 - 5.40 /CUMM) 2.34 L Hgb (12.0 - 16.0 G/DL) 6.9 *L Hct (37 - 47 %) 20.8 L MCV (81.0 - 99.0 FL) 88.8 MCH (27.0 - 31.0 PG) 29.4 RDW (11.5 - 14.5 %) 19.3 H Plt Count (130 - 400 /CUMM) 230 MPV (7.4 - 10.4 FL) 8.4 Gran % (42.2 - 75.2 %) 89.0 H Lymphocytes % (20.5 - 51.1 %) 3.6 L Monocytes % (1.7 - 9.3 %) 7.4 Eosinophils % (0 - 5 %) 0 Basophils % (0.0 - 2.0 %) 0 L Absolute Granulocytes (1.4 - 6.5 /CUMM) 12.3 H Absolute Lymphocytes (1.2 - 3.4 /CUMM) 0.5 L Lymphocytes (%) 2 Absolute Monocytes (0.10 - 0.60 /CUMM) 1.0 H Absolute Eosinophils (0.0 - 0.7 /CUMM) 0 Absolute Basophils (0.0 - 0.2 /CUMM) 0 % Normal PMNs (%) 96 PUBS MCHC (33.0 - 37.0 G/DL) 33.1 Other Body Source Fluid WBC (0 - 5 /CUMM) [id number] H Fld Total RBCs Counted (0 /CUMM) 5050 H 06/11 06/11 1214 1027 Chemistry Sodium (137 - 145 mmol/L) 135 L Potassium (3.5 - 5.1 mmol/L) 4.5 Chloride (98 - 107 mmol/L) 98 Carbon Dioxide (22 - 30 mmol/L) 23 Anion Gap (5 - 16) 14 BUN (7 - 17 mg/dL) 39 H Creatinine (0.5 - 1.0 mg/dL) 1.3 H Estimated GFR (>60 ml/min) 39 L BUN/Creatinine Ratio (7 - 25 %) 30.0 H Glucose (65 - 99 mg/dL) 159 H Uric Acid (2.5 - 6.2 mg/dL) 4.9 Calcium (8.4 - 10.2 mg/dL) 8.3 L Total Bilirubin (0.2 - 1.3 mg/dL) 1.1 AST (14 - 36 U/L) 27 ALT (9 - 52 U/L) 41 Alkaline Phosphatase (<127 U/L) 102 Troponin I (< 0.11 ng/ml) < 0.01 Hvm-[id number] Pept (<125 pg/mL) 2610 H Total Protein (6.3 - 8.2 g/dL) 5.9 L Albumin (3.5 - 5.0 g/dL) 3.2 L Globulin (1.9 - 4.2 gm/dL) 2.7 Albumin/Globulin Ratio (1.1 - 2.2 %) 1.2 Hematology CBC w Diff MAN DIFF ORDERED WBC (4.8 - 10.8 /CUMM) 20.6 H RBC (4.20 - 5.40 /CUMM) 2.74 L Hgb (12.0 - 16.0 G/DL) 7.9 L Hct (37 - 47 %) 24.4 L MCV (81.0 - 99.0 FL) 89.0 MCH (27.0 - 31.0 PG) 29.0 RDW (11.5 - 14.5 %) 18.7 H Plt Count (130 - 400 /CUMM) 284 MPV (7.4 - 10.4 FL) 7.9 Gran % (42.2 - 75.2 %) 88.8 H Lymphocytes % (20.5 - 51.1 %) 4.4 L Monocytes % (1.7 - 9.3 %) 6.6 Eosinophils % (0 - 5 %) 0 Basophils % (0.0 - 2.0 %) 0.2 Absolute Granulocytes (1.4 - 6.5 /CUMM) 18.3 H Absolute Lymphocytes (1.2 - 3.4 /CUMM) 0.9 L Absolute Monocytes (0.10 - 0.60 /CUMM) 1.4 H Absolute Eosinophils (0.0 - 0.7 /CUMM) 0 Absolute Basophils (0.0 - 0.2 /CUMM) 0 Platelet Estimate (ADEQUATE) ADEQUATE Polychromasia 1+ Hypochromic-Microcytic 1+ Poikilocytosis 1+ Anisocytosis 1+ PUBS MCHC (33.0 - 37.0 G/DL) 32.6 L Urines Urine Color (YEL,AMB,STR) YEL Urine Clarity (CLEAR) CLEAR Urine pH (5.0 - 8.0) 6.0 Ur Specific [place] (1.001 - 1.035) 1.015 Urine Protein (NEG,<30 MG/DL) NEG Urine Ketones (NEG) NEG Urine Nitrite (NEG) NEG Urine Bilirubin (NEG) NEG Urine Urobilinogen (0.1 - 1.0 EU/dl) 0.2 Ur Leukocyte Esterase (NEG) SMALL H Ur Microscopic SEDIMENT EXAMINED Urine WBC (0 - 2 /HPF) 5-10 H Ur Epithelial Cells (NONE,FEW) FEW Urine Hemoglobin (NEG) NEG Urine Glucose (N MG/DL) NEG Diagnostic Data EKG Results EKG on 06/11/2016 showed sinus rhythm at a rate of 86 with a number of PACs, left axis deviation, probable LVH, poor R-wave progression, no acute changes. EKG done today at 1352 showed sinus rhythm or atrial rhythm at a rate of 108. There is no ectopy. There appears to be a prolonged MD interval. There is evidence of old anterior myocardial infarction and probable LVH. CXR Results PATIENT: XENA MARR PRESENT AGE: 81 PATIENT ACCOUNT NO: [id number] : 34 LOCATION: 2NA ORDERING PHYSICIAN: MARIAN LYONS MD SERVICE DATE: 06/12/16 EXAM TYPE: RAD - XRY-PORTABLE CHEST XRAY EXAMINATION: XR PORTABLE CHEST CLINICAL INFORMATION: History of CHF preop evaluation COMPARISON: Chest x-ray 05/11/2016 TECHNIQUE: AP semierect portable chest x-ray FINDINGS: Heart size is mildly enlarged and unchanged in size and contour. The thoracic aorta remains tortuous and ectatic. A moderately large right-sided thyroid mass with extrinsic compression on the trachea is unchanged. There is mild central vascular prominence which is nonsignificantly changed from the most recent prior study. There is no pulmonary edema. No focal consolidation or atelectasis is seen. There is some presumed extrinsic artifact over the right shoulder and scapula. IMPRESSION: No acute findings are seen in the chest x-ray. Mild cardiomegaly and ectatic thoracic aorta unchanged. Mild central vascular congestion without overt pulmonary edema, unchanged. Thyroid mass on the right unchanged. DICTATED BY: PRINCE MEDRANO MD DATE/TIME DICTATED:06/12/161052 [place] APPLICATOR:ALLEN DATE/TIME TRANSCRIBED:06/12/161052 CONFIDENTIAL, DO NOT COPY WITHOUT APPROPRIATE AUTHORIZATION. <Electronically signed in Other Vendor System> SIGNED BY: PRINCE MEDRANO MD 06/12 1104 Assessment/Plan Assessment/Plan This patient has an urgent need for surgery on her right shoulder because of septic joint. Hemodynamically she is stable except for mild tachycardia. Her EKG does not show any acute changes. In view of the fact that the surgery is necessary and imminent we will allow her to have the procedure. She will need close follow-up postoperatively. I would recommend a postoperative electrocardiogram. If she has any evidence of atrial fibrillation or other unstable rhythm she should be monitored on telemetry. Consult Acknowledgment - Thank you for your consult request.
[2016-06-12 16:17] VITALS: BP 100/50
--- NOTE | 2016-06-12 20:08 | Operative Report ---
Operative/Inv Procedure Report Surgery Date: 06/12/16 Name of Procedure: ARTHROSCOPIC RIGHT SHOULDER IRRIGATION AND DEBRIDEMENT WITH IRRIGATION AND DEBRIDEMENT RIGHT HIP SUPERFICIAL WOUND INFECTION Pre-Operative Diagnosis: RIGHT SHOULDER GLENOHUMERAL JOINT SEPTIC ARTHRITIS WITH RIGHT HIP SUPERFICIAL WOUND INFECTION Post-Operative Diagnosis: RIGHT SHOULDER GLENOHUMERAL JOINT SEPTIC ARTHRITIS WITH RIGHT HIP SUPERFICIAL WOUND INFECTION Estimated Blood Loss: less than 50ml Surgeon/Insurance Salesperson: Konstantin Anesthesia: laryngeal mask airway Drains: SMALL chapis DRAIN RIGHT HIP Specimens: SOFT TISSUE SPECIMANS SENT FROM RIGHT HIP FOR CULTURE AND SENSITIVITY Complications: NONE Operative/Procedure Note Note: PATIENT BROUGHT TO THE OR AND GENTLY TRANSFERRED TO THE OPERATIVE TABLE . SHE WAS GIVEN A GENERAL ANESTHETIC WITH LARYNGEAL AIRWAY. AN APPROPRIATE TIME OUT WAS DONE INDICATING RIGHT SHOULDER AND RIGHT HIP THE OPERATIVE SITES.SHE WAS PLACED IN THE LEFT LATERAL DECUBITUS POSITION ON A BEANBAG MAKING SURE TO PAD THE LOWER EXTREMITIES.BOTH THE SHOULDER AND HIP WERE PREPPED AND DRAPED SIMULTANEOUSLY .THE SHOULDER WAS ADDRESSED FIRST WHERE 2 PORTAL WERE MADE AND USING 4 3 LITER BAGS THE SHOULDER WAS IRRIGATED AND DEBRIDED USING A FULL RADIUS RESECTOR. AFTER COMPLETION OF THE SHOULDER DEBRIDEMENTPORTALS WERE CLOSED WITH NYLON SUTURES. ATTENTION THAN DIRECTED TO THE HIP WHICH WAS ERYTHEMATOUS AND SWOLLEN ALONG THE LOWER HALF OF THE WOUND. THE WOUND WAS OPENED WITH PURULENT MATERIAL SUPERFICIAL TO THE DEEP FASCIA WITH NECROTIC MATERIAL SOME OF THE MORE SOLID MATERIAL WAS SENT FOR CULTURE AND SENSITIVITY. AGAIN USING 6 LITERS OF FLUID WITH PULSED IRRIGATION. AFTER COMPLETE WASHOUT WOUND WAS CLOSED WITH 0 VICRYL AND LARGE 2-0 NYLON RETENTION SUTURES OVER A chapis DRAIN. DRY STERILE DRESSINGS WERE APPLIED AND PATIENT SENT TO RECOVERY NO COMPLICATIONS
[2016-06-12 20:45] VITALS: BP 150/70
--- NOTE | 2016-06-12 23:27 | PN- Orthopedic ---
Subjective Subjective: Update/Postoperative check Following this morning's exam, patient started to receive a blood transfusion but became febrile and tachycardic. She was thought to have a transfusion reaction. Blood was re-sent to the lab for additional antibody testing and deemed to be compatible. Transfusions were subsequently reordered. At around 3:45 PM today, patient was seen by Dr. Veloz and right hip wound was examined. He agreed that the erythema and induration was somewhat concerning, so a bedside aspiration was performed under sterile technique. Thin, but opaque pink fluid was aspirated and subsequently sent for cell count and Gram stain/ culture. Of note, it did not appear as purulent as the shoulder aspirate. Patient was seen by Dr. Menon with cardiology, who agreed that the benefit of the procedure outweighed the risks. The decision was made to proceed with washout of both the right shoulder and the right hip given the above findings upon aspiration. The first unit of blood was given hospital television rental clerk to the OR. Patient tolerated it well. She underwent the procedure without complication and was transferred back to the general medical floor in stable condition, where she received Lasix and a second unit of blood. At this time, patient remains comfortable. She denies significant pain. She reports being able to move her right arm a little bit more versus preop. She tolerated a box lunch for dinner. No nausea or vomiting. She voided in a bedpan. Otherwise denies headache, dizziness, chest pain, shortness of breath. Objective Vital Signs and I&Os Vital Signs Date Time Temp Pulse Resp B/P Pulse O2 O2 Flow FiO2 Ox Delivery Rate 06/12 2207 90 130/72 06/12 2045 98.3 83 18 150/70 96 Nasal 2.0L Cannula 06/12 1617 100/50 06/12 1425 99.5 100 18 100/60 94 Room Air 06/12 1009 70 130/80 06/12 0556 98.8 74 20 142/74 95 Room Air Intake & Output 06/12 1600 06/12 0806/12 0000 06/11 1600 06/11 0000 Intake Total 510 580 830 500 Output Total 500 150 300 Balance 10 430 530 500 Intake, Blood 10 Product Intake, IV 500 400 350 500 Intake, Oral 180 480 Output, Urine 500 150 300 Patient 0 lb 164 lb Weight Physical Exam: Gen.: Patient is resting, but easily arousable. She verbalizes well and converses clearly. Extremities: The right shoulder and right thigh dressings are clean, dry, and intact. There is mild perioperative swelling, as expected. She is able to move her right upper extremity a bit more versus preop. She can actually rotate to about 90, but abduction is minimal. Natural Sciences Professor strength is 5 out of 5. Biceps and triceps 3-4 out of 5, but only limited by pain and not a true weakness. RAISA drain from the right thigh contains a small amount of bloody output. 40 mL have been drained since surgery about 4 hours ago. Lower extremities contained trace edema, equal bilaterally. No calf tenderness is appreciated. 06/12/2016 White blood cell count of the right hip aspirate was 91,000. Gram stain and culture are still pending. Postop EKG revealed normal sinus rhythm with PACs. Assessment/Plan Assessment/Plan Patient is an 81-year-old female with history of diabetes, goiter, hypertension, coronary artery disease, hyperlipidemia, and gout who is now postoperative day # 0 status post arthroscopic washout of the right shoulder and I&D of the right hip for septic shoulder joint and infected hip wound. Group G strep has been isolated from the right shoulder and blood. Cultures are pending from the right hip. Plan: -Continue IV ampicillin as per ID. -Advance diet as tolerated. -Pain control with IV acetaminophen. Will add tramadol for additional relief. Of note, patient has documented allergies to morphine, Dilaudid, and oxycodone. The reaction was not a true allergy, but rather hallucinations. Patient did receive small doses of Dilaudid in PACU today, which she tolerated well. Patient does admit that she can likely tolerate very small doses if she is in significant pain. -PT and OT consult tomorrow. Patient may weight-bear as tolerated and use her right arm within her comfort limits. -RAISA drain will be removed when output is less than 30 mL per day, but not later than postoperative day #2. -Second unit of blood is currently transfusing. -Continue to monitor temps and vitals. -Monitor blood sugars and treat with insulin as needed. -Please hold prednisone due to active infection, as per Dr. Veloz's request. -Repeat CBC in the morning. -Continue medical management per primary team.
[2016-06-13 06:48] VITALS: BP 144/62
--- NOTE | 2016-06-13 07:30 | PN- Orthopedic ---
See Addendum Subjective Subjective: NAEO. Afebrile overnight. Patient without c/o. States she has no pain at all and feels as if she never had surgery yesterday. Denies numbness/tingling in any extremity. Has not ambulated yet. Denies CP/SOB. Objective Vital Signs and I&Os Vital Signs Date Time Temp Pulse Resp B/P Pulse O2 O2 Flow FiO2 Ox Delivery Rate 06/13 0548 97.7 76 18 144/62 97 Nasal 2.0L Cannula 06/13 0000 Nasal 2.0L Cannula 06/12 2207 90 130/72 06/12 2045 98.3 83 18 150/70 96 Nasal 2.0L Cannula 06/12 1617 100/50 06/12 1425 99.5 100 18 100/60 94 Room Air 06/12 1009 70 130/80 Intake & Output 06/13 0800 06/13 0000 06/12 1600 06/12 0800 06/12 0000 06/11 1600 Intake Total 1010 530 510 580 830 500 Output Total 130 540 500 150 300 Balance 880 -10 10 430 530 500 Intake, Blood 350 10 Product Intake, IV 300 330 500 400 350 500 Intake, Oral 360 200 180 480 Output, 30 40 Drainage Output, Urine 100 500 500 150 300 Patient 0 lb 164 lb Weight Physical Exam: Gen: NAD, comfortable, A&Ox3 Chest: NRD, breathing comfortably on RA. RRR. Ext: Right shoulder dressing c/d/i with notable erythema and mild swelling. Appropriately TTP. Good but mild pain with ROM. Right hip dressing c/d/i. Appropriately TTP around incision site. Right hip drain in place with serosanguineous drainage. No calve TTP/Swelling, n/v intact BLE. Current Medications: Current Medications Sig/Sabina Start time Last Medication Dose Route Stop Time Status Admin Acetaminophen 1,000 MG Q6H 06/12 09 DC 06/13 N/A 1 UNIT IV 06/13 0359 0238 Acetaminophen 650 MG Q6P PRN 06/11 1715 DC PO Ampicillin 2,000 MG Q8 06/12 1200 AC 06/13 Sodium Chloride 100 ML IV 0555 Aspirin Buffered 81 MG DAILY 06/13 1000 AC PO Aspirin Buffered 81 MG DAILY 06/12 1000 DC PO Atorvastatin Calcium 40 MG DAILY 06/13 1000 AC PO Atorvastatin Calcium 40 MG DAILY 06/12 1000 DC PO Cholecalciferol 2,000 IU DAILY 06/13 1000 AC PO Cholecalciferol 2,000 IU DAILY 06/12 1000 DC PO Dexamethasone 4 MG .STK-MED ONE 06/12 1710 DC IM 06/12 1711 Dextrose/Sodium 1,000 ML Q20H 06/12 2100 AC 06/13 Chloride IV 0235 Dextrose/Sodium 1,000 ML Q20H 06/11 1845 DC 06/11 Chloride IV 06/12 1444 1846 Docusate Sodium 100 MG DAILY 06/13 1000 AC PO Docusate Sodium 100 MG DAILY 06/11 1654 DC 06/11 PO 1845 Duloxetine HCl 60 MG AT BEDTIME 06/12 2200 AC 06/12 PO 2207 Duloxetine HCl 60 MG AT BEDTIME 06/11 2200 DC 06/11 PO 2139 Fentanyl Citrate 200 MCG .STK-MED ONE 06/12 1709 DC IM 06/12 1710 Ferrous Sulfate 325 MG DAILY 06/13 1000 AC PO Ferrous Sulfate 325 MG DAILY 06/12 1000 DC PO Furosemide 40 MG .STK-MED ONE 06/12 2103 DC IV 06/12 2104 Furosemide 20 MG ONCE ONE 06/12 1545 DC 06/12 IV 06/12 1546 2123 Hydromorphone HCl 2 MG .STK-MED ONE 06/12 1948 DC IM 06/12 1949 Insulin Aspart 0 TIDAC 06/13 0800 AC SC Insulin Aspart 0 TIDAC/HS 06/12 2100 DC SC Insulin Human Regular 0 Q6 06/11 2359 DC 06/12 SC 1209 Labetalol HCl 300 MG BID 06/12 2200 AC 06/12 PO 2207 Labetalol HCl 300 MG BID 06/11 2200 DC 06/12 PO 1009 Lidocaine 1 PAT DAILY 06/13 1000 AC EXT Lidocaine 5 ML ONCE ONE 06/12 1530 DC SC 06/12 1531 Lidocaine 1 PAT DAILY 06/11 1656 DC 06/12 EXT 1006 Methimazole 2.5 MG DAILY 06/13 1000 AC PO Methimazole 2.5 MG DAILY 06/11 2200 DC 06/11 PO 2140 Midazolam HCl 2 MG .STK-MED ONE 06/12 1709 DC IM 06/12 1710 Ondansetron HCl 4 MG .STK-MED ONE 06/12 171 DC IM 06/12 1711 Prednisone 2.5 MG DAILY 06/11 1657 DC 06/11 PO 2026 Tramadol HCl 50 MG Q6P PRN 06/12 2330 AC 06/13 PO 0555 Vancomycin HCl 1,000 MG DAILY@1900 06/11 190 DC 06/11 Sodium Chloride 250 ML IV 2026 Results Last 48 Hours of Labs: Laboratory Tests 06/12 06/12 06/12 1800 1545 0600 Chemistry Sodium (137 - 145 mmol/L) Cancelled 134 L Potassium (3.5 - 5.1 mmol/L) Cancelled 4.2 Chloride (98 - 107 mmol/L) Cancelled 98 Carbon Dioxide (22 - 30 mmol/L) Cancelled 22 Anion Gap (5 - 16) Cancelled 14 BUN (7 - 17 mg/dL) Cancelled 39 H Creatinine (0.5 - 1.0 mg/dL) Cancelled 1.3 H Estimated GFR (>60 ml/min) 39 L BUN/Creatinine Ratio (7 - 25 %) Cancelled 30.0 H Coagulation PT (9.4 - 12.5 SEC) 17.1 H INR (0.90 - 1.19) 1.64 H Hematology CBC w Diff Cancelled NO MAN DIFF REQ WBC (4.8 - 10.8 /CUMM) Cancelled 13.8 H RBC (4.20 - 5.40 /CUMM) Cancelled 2.34 L Hgb (12.0 - 16.0 G/DL) Cancelled 6.9 *L Hct (37 - 47 %) Cancelled 20.8 L MCV (81.0 - 99.0 FL) Cancelled 88.8 MCH (27.0 - 31.0 PG) Cancelled 29.4 RDW (11.5 - 14.5 %) Cancelled 19.3 H Plt Count (130 - 400 /CUMM) Cancelled 230 MPV (7.4 - 10.4 FL) Cancelled 8.4 Gran % (42.2 - 75.2 %) 89.0 H Lymphocytes % (20.5 - 51.1 %) 3.6 L Monocytes % (1.7 - 9.3 %) 7.4 Eosinophils % (0 - 5 %) 0 Basophils % (0.0 - 2.0 %) 0 L Absolute Granulocytes (1.4 - 6.5 /CUMM) 12.3 H Absolute Lymphocytes (1.2 - 3.4 /CUMM) 0.5 L Lymphocytes (%) 3 Absolute Monocytes (0.10 - 0.60 /CUMM) 1.0 H Absolute Eosinophils (0.0 - 0.7 /CUMM) 0 Absolute Basophils (0.0 - 0.2 /CUMM) 0 % Normal PMNs (%) 96 PUBS MCHC (33.0 - 37.0 G/DL) Cancelled 33.1 Other Body Source Fluid WBC (0 - 5 /CUMM) 82038 H Fld Mesothelial Cells (%) 1 Fld Total RBCs Counted (0 /CUMM) 37364 H 06/11 06/11 06/11 1840 1710 1214 Coagulation PT (9.4 - 12.5 SEC) 17.6 H INR (0.90 - 1.19) 1.68 H Hematology Lymphocytes (%) 2 % Normal PMNs (%) 96 Other Body Source Fluid WBC (0 - 5 /CUMM) 581884 H Fld Total RBCs Counted (0 /CUMM) 5050 H Urines Urine Color (YEL,AMB,STR) YEL Urine Clarity (CLEAR) CLEAR Urine pH (5.0 - 8.0) 6.0 Ur Specific [place] (1.001 - 1.035) 1.015 Urine Protein (NEG,<30 MG/DL) NEG Urine Ketones (NEG) NEG Urine Nitrite (NEG) NEG Urine Bilirubin (NEG) NEG Urine Urobilinogen (0.1 - 1.0 EU/dl) 0.2 Ur Leukocyte Esterase (NEG) SMALL H Ur Microscopic SEDIMENT EXAMINED Urine WBC (0 - 2 /HPF) 5-10 H Ur Epithelial Cells (NONE,FEW) FEW Urine Hemoglobin (NEG) NEG Urine Glucose (N MG/DL) NEG 06/11 1027 Chemistry Sodium (137 - 145 mmol/L) 135 L Potassium (3.5 - 5.1 mmol/L) 4.5 Chloride (98 - 107 mmol/L) 98 Carbon Dioxide (22 - 30 mmol/L) 23 Anion Gap (5 - 16) 14 BUN (7 - 17 mg/dL) 39 H Creatinine (0.5 - 1.0 mg/dL) 1.3 H Estimated GFR (>60 ml/min) 39 L BUN/Creatinine Ratio (7 - 25 %) 30.0 H Glucose (65 - 99 mg/dL) 159 H Uric Acid (2.5 - 6.2 mg/dL) 4.9 Calcium (8.4 - 10.2 mg/dL) 8.3 L Total Bilirubin (0.2 - 1.3 mg/dL) 1.1 AST (14 - 36 U/L) 27 ALT (9 - 52 U/L) 41 Alkaline Phosphatase (<127 U/L) 102 Troponin I (< 0.11 ng/ml) < 0.01 [id number] Pept (<125 pg/mL) 2610 H Total Protein (6.3 - 8.2 g/dL) 5.9 L Albumin (3.5 - 5.0 g/dL) 3.2 L Globulin (1.9 - 4.2 gm/dL) 2.7 Albumin/Globulin Ratio (1.1 - 2.2 %) 1.2 Hematology CBC w Diff MAN DIFF ORDERED WBC (4.8 - 10.8 /CUMM) 20.6 H RBC (4.20 - 5.40 /CUMM) 2.74 L Hgb (12.0 - 16.0 G/DL) 7.9 L Hct (37 - 47 %) 24.4 L MCV (81.0 - 99.0 FL) 89.0 MCH (27.0 - 31.0 PG) 29.0 RDW (11.5 - 14.5 %) 18.7 H Plt Count (130 - 400 /CUMM) 284 MPV (7.4 - 10.4 FL) 7.9 Gran % (42.2 - 75.2 %) 88.8 H Lymphocytes % (20.5 - 51.1 %) 4.4 L Monocytes % (1.7 - 9.3 %) 6.6 Eosinophils % (0 - 5 %) 0 Basophils % (0.0 - 2.0 %) 0.2 Absolute Granulocytes (1.4 - 6.5 /CUMM) 18.3 H Absolute Lymphocytes (1.2 - 3.4 /CUMM) 0.9 L Absolute Monocytes (0.10 - 0.60 /CUMM) 1.4 H Absolute Eosinophils (0.0 - 0.7 /CUMM) 0 Absolute Basophils (0.0 - 0.2 /CUMM) 0 Platelet Estimate (ADEQUATE) ADEQUATE Polychromasia 1+ Hypochromic-Microcytic 1+ Poikilocytosis 1+ Anisocytosis 1+ PUBS MCHC (33.0 - 37.0 G/DL) 32.6 L Assessment/Plan Assessment/Plan 81yo F POD#0 s/p arthroscopic washout of the right shoulder and I&D of the right hip for septic shoulder joint and infected hip wound. Plan: -Continue IV ampicillin as per ID. -Diet as tolerated. -Leave dressing in place for now -Pain control -PT and OT consult today, WBAT -RAISA drain output 30mL, dc'd bedside -f/u a.m. labs -Continue to monitor temps and vitals. -Please hold prednisone due to active infection, as per Dr. Veloz's request. -Care per primary team. -Will d/w attending
[2016-06-13 08:27] LABS: PT 15.7 SEC (9.4-12.5)
[2016-06-13 08:39] LABS: ABSOLUTE BASOPHIL COUNT 0 /CUMM (0.0-0.2); ABSOLUTE EOSINOPHIL COUNT 0 /CUMM (0.0-0.7); ABSOLUTE GRANULOCYTE CT 11.1 /CUMM (1.4-6.5); ABSOLUTE LYMPH COUNT 0.2 /CUMM (1.2-3.4); ABSOLUTE MONOCYTE COUNT 0.4 /CUMM (0.10-0.60); BASOPHIL % 0 % (0.0-2.0); EOSINOPHIL % 0 % (0-5); MEAN CORPUSCULAR HGB 29.3 PG (27.0-31.0); MEAN CORPUSCULAR HGB CONC 33.5 G/DL (33.0-37.0); MEAN CORPUSCULAR VOLUME 87.7 FL (81.0-99.0); MEAN PLATELET VOLUME 8.3 FL (7.4-10.4); RBC DISTRIBUTION WIDTH 18.3 % (11.5-14.5); WHITE BLOOD CELL COUNT 11.7 /CUMM (4.8-10.8)
[2016-06-13 09:18] LABS: GRANULOCYTE % 95.1 % (42.2-75.2); HEMATOCRIT 26.1 % (37-47); PLATELET COUNT 213 /CUMM (130-400); RED BLOOD CELL CT 2.98 /CUMM (4.20-5.40)
--- NOTE | 2016-06-13 11:17 | PN- Housestaff ---
TAD FORD 06/13/16 1117: Subjective Follow-up For: Fall Right shoulder swelling ? Septic joint Subjective: Seen and examined patient. Denies fever, chills, chest pain, palpitations. States pain is controlled at this time Review of Systems Constitutional: Denies: chills, diaphoresis, fever, malaise, weakness, unexplained weight loss. Cardiovascular: Denies: chest pain, edema, orthopena, palpitations, peripheral edema, syncope. Respiratory: Denies: cough, hemoptysis, orthopnea, short of breath, sputum production, stridor, wheezing. Objective Last 24 Hrs of Vital Signs/I&O Vital Signs Date Time Temp Pulse Resp B/P Pulse O2 O2 Flow FiO2 Ox Delivery Rate 06/13 0839 76 144/62 06/13 0800 Nasal 2.0L Cannula 06/13 0648 97.7 76 18 144/62 97 Nasal 2.0L Cannula 06/13 0000 Nasal 2.0L Cannula 06/12 2207 90 130/72 06/12 2045 98.3 83 18 150/70 96 Nasal 2.0L Cannula 06/12 1617 100/50 06/12 1425 99.5 100 18 100/60 94 Room Air Intake & Output 06/13 1600 06/13 0800 06/13 0000 Intake Total 1010 530 Output Total 130 540 Balance 880 -10 Intake, Blood 350 Product Intake, IV 300 330 Intake, Oral 360 200 Number 1 Bowel Movements Output, 30 40 Drainage Output, Urine 100 500 Physical Exam General Appearance: Alert, Oriented X3, Cooperative, No Acute Distress Cardiovascular: Regular Rate, Normal S1, Normal S2 Lungs: Clear to Auscultation, Normal Air Movement Extremities: clean dressing over right shoulder and right lower hip Current Medications: Current Medications Sig/Sabina Start time Last Medication Dose Route Stop Time Status Admin Acetaminophen 1,000 MG Q6H 06/12 0945 DC 06/13 N/A 1 UNIT IV 06/13 0359 0238 Ampicillin 2,000 MG Q8 06/12 1200 AC 06/13 Sodium Chloride 100 ML IV 1301 Aspirin Buffered 81 MG DAILY 06/13 1000 AC 06/13 PO 0842 Aspirin Buffered 81 MG DAILY 06/12 1000 DC PO Atorvastatin Calcium 40 MG DAILY 06/13 1000 AC 06/13 PO 0840 Atorvastatin Calcium 40 MG DAILY 06/12 1000 DC PO Cholecalciferol 2,000 IU DAILY 06/13 1000 AC 06/13 PO 0839 Cholecalciferol 2,000 IU DAILY 06/12 1000 DC PO Dexamethasone 4 MG .STK-MED ONE 06/12 1710 DC IM 06/12 1711 Dextrose/Sodium 1,000 ML Q20H 06/12 2100 AC 06/13 Chloride IV 0235 Dextrose/Sodium 1,000 ML Q20H 06/11 1845 DC 06/11 Chloride IV 06/12 1444 1846 Docusate Sodium 100 MG DAILY 06/13 1000 AC 06/13 PO 0842 Docusate Sodium 100 MG DAILY 06/11 1654 DC 06/11 PO 1845 Duloxetine HCl 60 MG AT BEDTIME 06/12 2200 AC 06/12 PO 2207 Duloxetine HCl 60 MG AT BEDTIME 06/11 2200 DC 06/11 PO 2139 Fentanyl Citrate 200 MCG .STK-MED ONE 06/12 1709 DC IM 06/12 1710 Ferrous Sulfate 325 MG DAILY 06/13 1000 AC 06/13 PO 0840 Ferrous Sulfate 325 MG DAILY 06/12 1000 DC PO Furosemide 40 MG .STK-MED ONE 06/12 2103 DC IV 06/12 2104 Furosemide 20 MG ONCE ONE 06/12 1545 DC 06/12 IV 06/12 1546 2123 Hydromorphone HCl 2 MG .STK-MED ONE 06/12 1948 DC IM 06/12 1949 Insulin Aspart 0 TIDAC 06/13 0800 AC 06/13 SC 1155 Insulin Aspart 0 TIDAC/HS 06/12 2100 DC SC Insulin Human Regular 0 Q6 06/11 2359 DC 06/12 SC 1209 Labetalol HCl 300 MG BID 06/12 220 AC 06/13 PO 0839 Labetalol HCl 300 MG BID 06/11 2200 DC 06/12 PO 1009 Lidocaine 1 PAT DAILY 06/13 1000 AC 06/13 EXT 0842 Lidocaine 5 ML ONCE ONE 06/12 1530 DC SC 06/12 1531 Lidocaine 1 PAT DAILY 06/11 1656 DC 06/12 EXT 1006 Methimazole 2.5 MG DAILY 06/13 1000 AC 06/13 PO 0841 Methimazole 2.5 MG DAILY 06/11 2200 DC 06/11 PO 2140 Midazolam HCl 2 MG .STK-MED ONE 06/12 1709 DC IM 06/12 1710 Ondansetron HCl 4 MG .STK-MED ONE 06/12 1710 DC IM 06/12 1711 Prednisone 2.5 MG DAILY 06/11 1657 DC 06/11 PO 2026 Tramadol HCl 50 MG Q6P PRN 06/12 2330 AC 06/13 PO 0555 Vancomycin HCl 1,000 MG DAILY@1900 06/11 190 DC 06/11 Sodium Chloride 250 ML IV 2026 Last 24 Hrs of Lab/Anil Results Last 24 Hrs of Labs/Mics: Laboratory Tests 06/13/16 0710: Anion Gap 11, Estimated GFR 39 L, BUN/Creatinine Ratio 28.5 H, PT 15.7 H, INR 1.50 H, CBC w Diff NO MAN DIFF REQ, RBC 2.98 L, MCV 87.7, MCH 29.3, RDW 18.3 H, MPV 8.3, Gran % 95.1 H, Lymphocytes % 1.6 L, Monocytes % 3.3, Eosinophils % 0, Basophils % 0 L, Absolute Granulocytes 11.1 H, Absolute Lymphocytes 0.2 L, Absolute Monocytes 0.4, Absolute Eosinophils 0, Absolute Basophils 0, PUBS MCHC 33.5 06/12/16 1800: Sodium Cancelled, Potassium Cancelled, Chloride Cancelled, Carbon Dioxide Cancelled, Anion Gap Cancelled, BUN Cancelled, Creatinine Cancelled, BUN/ Creatinine Ratio Cancelled, CBC w Diff Cancelled, WBC Cancelled, RBC Cancelled, Hgb Cancelled, Hct Cancelled, MCV Cancelled, MCH Cancelled, RDW Cancelled, Plt Count Cancelled, MPV Cancelled, PUBS MCHC Cancelled 06/12/16 1545: Lymphocytes 3, % Normal PMNs 96, Fluid WBC 85093 H, Fld Mesothelial Cells 1, Fld Total RBCs Counted 75820 H Microbiology 06/12 1854 EXTREMITIE: Culture & Sensitivity - CAN Cancelled: WRONG SENIOR OCCUPATIONAL THERAPIST 06/12 1854 EXTREMITIE: Gram Stain - CAN Cancelled: WRONG SENIOR OCCUPATIONAL THERAPIST 06/12 1854 TRUNK/O.R.: Culture & Sensitivity - RECD 06/12 1854 TRUNK/O.R.: Gram Stain - RECD 06/12 1544 BODY FLUID: Body Fluid Culture - RES 06/12 154 BODY FLUID: Gram Stain - RES Assessment/Plan Assessment: 80-year-old woman with past medical history of diabetes, CHF, hypertension, hyperlipidemia, hyperthyroidism, colon cancer status post hemicolectomy, coronary artery disease status post bare metal stent, thoracic aortic aneurysm, recently discharged after right hip arthroplasty on 05/11/[address] Leon presents from home after a fall 2 days ago. Recent steroid shot on the right shoulder about one week ago for osteoarthritis. Plan 1. Septic right shoulder/right hip joint: Status post s/p arthroscopic washout of the right shoulder and I&D of the right hip for septic shoulder joint and infected hip wound. Blood cultures and body fluid culture growing beta strep group G for which penicillin and ampicillin are drugs of choice, patient is currently on IV ampicillin ID is on board appreciate recommendations Will obtain echo to rule out infective endocarditis follow up with Dr Macdonald in two weeks 2. Acute blood loss anemia in the setting of anticoagulation with warfarin: s/p 2 units PRBC. Hemoglobin 8.7, hematocrit 26.1 . Per surgery can discontinue warfarin as postop DVT prophylaxis no longer needed. 3. Heart failure with preserved ejection fraction: Echocardiogram in 2016 showed an ejection fraction of 40%. Chest x-ray done today showed mild central venous vascular congestion without overt pulmonary edema. Continues to be stable. Cardiology on board appreciate recommendations. We'll restart her home dose of Lasix 4. Diabetic mellitus: Will restart her basal insulin and continue insulin sliding scale continue to monitor fingersticks 5. Hyperlipidemia: We will continue her statins. 6. Hypothyroidism: We will continue her methimazole 7. Gout: Allopurinol to be restarted today Full CODE STATUS DVT prophylaxis subcutaneous heparin Healthy diet Problem List: 1. CHF (congestive heart failure) 2. Septic arthritis 3. S/P ORIF (open reduction internal fixation) fracture Pain Ratin Pain Location: Not applicable Pain Goal: Pain 4 or less Pain Plan: Current regimen Tomorrow's Labs & Rationales: Septic joint, will follow CBC BP TRAE WELLER MD 06/13/16 1237: Attending MD Review Statement Attending Statement Attending MD Statement: examined this patient, discuss w/resident/PA/TATTOO TECHNICIAN, agreed w/resident/PA/TATTOO TECHNICIAN, reviewed EMR data (avail) Attending Assessment/Plan: 81F PMH T2DM, CHF, HTN, HLD, hyperthyroidism, colon cancer status post hemicolectomy, coronary artery disease s/p BMS, thoracic aortic aneurysm, recently discharged after right hip arthroplasty on 05/11/2016 admitted with and right shoulder pain with recent steroid injection to right shoulder found to have septic arthritis of the right shoulder with irrigation and debridement of the right hip and shoulder on 06/12, with blood and joint cultures growing group G strep. Patient feels well today with no pain, afebrile, comfortable. 1. Septic arthritis of the right shoulder 2. Infected right hip wound 3. Fall, initial encounter 4. Streptococcal bacteremia 5. Symptomatic anemia 6. HIstory of coronary artery disease Plan - Continue Ampicillin - Follow cultures - Follow ID and orthopedic recommendations - May restart ASA - Discontinue Coumadin - Monitor CBC - Obtain echocardiogram - Continue remaining home medications - DVT PPx with ALPS
--- NOTE | 2016-06-13 11:21 | PN- Cardiology ---
Subjective Subjective: Awake, alert, and without complaints POD #1 s/p arthroscopic right shoulder irrigation and debridement with irrigation and debridement right hip superficial wound infection secondary to right glenohumeral shoulder joint septic arthritis and right hip superficial wound infection. Admits to some discomfort at the surgical, sites but denies any chest discomfort , palpitations, shortness of breath, etc. Objective Vital Signs and I&Os Vital Signs Date Time Temp Pulse Resp B/P Pulse O2 O2 Flow FiO2 Ox Delivery Rate 06/13 838 76 144/62 06/13 799 Nasal 2.0L Cannula 06/13 0648 97.7 76 18 144/62 97 Nasal 2.0L Cannula 06/13 0000 Nasal 2.0L Cannula 06/12 2207 90 130/72 06/12 2045 98.3 83 18 150/70 96 Nasal 2.0L Cannula 06/12 1617 100/50 06/12 1425 99.5 100 18 100/60 94 Room Air Intake & Output 06/13 1600 06/13 0000 06/12 1600 06/12 0000 Intake Total 1010 530 510 580 830 Output Total 130 540 500 150 300 Balance 880 -10 10 430 530 Intake, Blood 350 10 Product Intake, IV 300 330 500 400 350 Intake, Oral 360 200 180 480 Number 1 Bowel Movements Output, 30 40 Drainage Output, Urine 100 500 500 150 300 Patient 0 lb Weight Physical Exam: Well-developed, overweight, pale appearing female in no acute distress. Vital signs: See above. Lungs: Decreased breath sounds bilaterally. Heart: S1, S2 (occasionally irregular) with grade 1-2/6 systolic murmur. Extremities: No pedal edema. Current Medications: Current Medications Sig/Sabina Start time Last Medication Dose Route Stop Time Status Admin Acetaminophen 1,000 MG Q6H 06/12 0845 DC 06/13 N/A 1 UNIT IV 06/13 0359 0238 Ampicillin 2,000 MG Q8 06/12 1200 AC 06/13 Sodium Chloride 100 ML IV 0555 Aspirin Buffered 81 MG DAILY 06/13 1000 AC 06/13 PO 0842 Aspirin Buffered 81 MG DAILY 06/12 1000 DC PO Atorvastatin Calcium 40 MG DAILY 06/13 1000 AC 06/13 PO 0840 Atorvastatin Calcium 40 MG DAILY 06/12 1000 DC PO Cholecalciferol 2,000 IU DAILY 06/13 1000 AC 06/13 PO 0839 Cholecalciferol 2,000 IU DAILY 06/12 1000 DC PO Dexamethasone 4 MG .STK-MED ONE 06/12 1710 DC IM 06/12 1711 Dextrose/Sodium 1,000 ML Q20H 06/12 2100 AC 06/13 Chloride IV 0235 Dextrose/Sodium 1,000 ML Q20H 06/11 1845 DC 06/11 Chloride IV 06/12 1444 1846 Docusate Sodium 100 MG DAILY 06/13 1000 AC 06/13 PO 0842 Docusate Sodium 100 MG DAILY 06/11 1654 DC 06/11 PO 1845 Duloxetine HCl 60 MG AT BEDTIME 06/12 2200 AC 06/12 PO 2207 Duloxetine HCl 60 MG AT BEDTIME 06/11 2200 DC 06/11 PO 2139 Fentanyl Citrate 200 MCG .STK-MED ONE 06/12 1709 DC IM 06/12 1710 Ferrous Sulfate 325 MG DAILY 06/13 1000 AC 06/13 PO 0840 Ferrous Sulfate 325 MG DAILY 06/12 1000 DC PO Furosemide 40 MG .STK-MED ONE 06/12 2103 DC IV 06/12 2104 Furosemide 20 MG ONCE ONE 06/12 1545 DC 06/12 IV 06/12 1546 2123 Hydromorphone HCl 2 MG .STK-MED ONE 06/12 1948 DC IM 06/12 1949 Insulin Aspart 0 TIDAC 06/13 0800 AC 06/13 SC 0838 Insulin Aspart 0 TIDAC/HS 06/12 2100 DC SC Insulin Human Regular 0 Q6 06/11 2359 DC 06/12 SC 1209 Labetalol HCl 300 MG BID 06/12 2200 AC 06/13 PO 0839 Labetalol HCl 300 MG BID 06/11 2200 DC 06/12 PO 1009 Lidocaine 1 PAT DAILY 06/13 1000 AC 06/13 EXT 0842 Lidocaine 5 ML ONCE ONE 06/12 1530 DC SC 06/12 1531 Lidocaine 1 PAT DAILY 06/11 1656 DC 06/12 EXT 1006 Methimazole 2.5 MG DAILY 06/13 1000 AC 06/13 PO 0841 Methimazole 2.5 MG DAILY 06/11 2200 DC 06/11 PO 2140 Midazolam HCl 2 MG .STK-MED ONE 06/12 1709 DC IM 06/12 1710 Ondansetron HCl 4 MG .STK-MED ONE 06/12 1710 DC IM 06/12 1711 Prednisone 2.5 MG DAILY 06/11 1657 DC 06/11 PO 2026 Tramadol HCl 50 MG Q6P PRN 06/12 2330 AC 06/13 PO 0555 Vancomycin HCl 1,000 MG DAILY@1900 06/11 1899 DC 06/11 Sodium Chloride 250 ML IV 2026 Results Last 48 Hrs of Labs/Mics: Laboratory Tests 06/13/16 0710: Anion Gap 11, Estimated GFR 39 L, BUN/Creatinine Ratio 28.5 H, PT 15.7 H, INR 1.50 H, CBC w Diff NO MAN DIFF REQ, RBC 2.98 L, MCV 87.7, MCH 29.3, RDW 18.3 H, MPV 8.3, Gran % 95.1 H, Lymphocytes % 1.6 L, Monocytes % 3.3, Eosinophils % 0, Basophils % 0 L, Absolute Granulocytes 11.1 H, Absolute Lymphocytes 0.2 L, Absolute Monocytes 0.4, Absolute Eosinophils 0, Absolute Basophils 0, PUBS MCHC 33.5 06/12/16 1800: Sodium Cancelled, Potassium Cancelled, Chloride Cancelled, Carbon Dioxide Cancelled, Anion Gap Cancelled, BUN Cancelled, Creatinine Cancelled, BUN/ Creatinine Ratio Cancelled, CBC w Diff Cancelled, WBC Cancelled, RBC Cancelled, Hgb Cancelled, Hct Cancelled, MCV Cancelled, MCH Cancelled, RDW Cancelled, Plt Count Cancelled, MPV Cancelled, PUBS MCHC Cancelled 06/12/16 1545: Lymphocytes 3, % Normal PMNs 96, Fluid WBC 21566 H, Fld Mesothelial Cells 1, Fld Total RBCs Counted 89458 H 06/12/16 0600: Anion Gap 14, Estimated GFR 39 L, BUN/Creatinine Ratio 30.0 H, PT 17.1 H, INR 1.64 H, CBC w Diff NO MAN DIFF REQ, RBC 2.34 L, MCV 88.8, MCH 29.4, RDW 19.3 H, MPV 8.4, Gran % 89.0 H, Lymphocytes % 3.6 L, Monocytes % 7.4, Eosinophils % 0, Basophils % 0 L, Absolute Granulocytes 12.3 H, Absolute Lymphocytes 0.5 L, Absolute Monocytes 1.0 H, Absolute Eosinophils 0, Absolute Basophils 0, PUBS MCHC 33.1 06/11/16 1840: Lymphocytes 2, % Normal PMNs 96, Fluid WBC 462220 H, Fld Total RBCs Counted 5050 H 06/11/16 1710: PT 17.6 H, INR 1.68 H 06/11/16 1214: Urine Color YEL, Urine Clarity CLEAR, Urine pH 6.0, Ur Specific Hardin 1.015, Urine Protein NEG, Urine Ketones NEG, Urine Nitrite NEG, Urine Bilirubin NEG, Urine Urobilinogen 0.2, Ur Leukocyte Esterase SMALL H, Ur Microscopic SEDIMENT EXAMINED, Urine WBC 5-10 H, Ur Epithelial Cells FEW, Urine Hemoglobin NEG, Urine Glucose NEG Microbiology 06/11 1214 URINE ROUT: Urine Culture - COMP Recent Imaging Studies: ECG (06/13/2016) sinus rhythm, APC, borderline first-degree AV block, possible left atrial abnormality, abnormal precordial R wave progression cannot exclude old anterior AL, consider LVH. Slightly slower rate when compared to previous tracing (06/12/2016). CXR (06/12/2016) No acute findings are seen in the chest x-ray. Mild cardiomegaly and ectatic thoracic aorta unchanged. Mild central vascular congestion without overt pulmonary edema, unchanged. Thyroid mass on the right unchanged. Assessment/Plan Assessment/Plan Elderly female with a history of obesity, hypertension, dyslipidemia, gout, diabetes mellitus, pulmonary nodules, right thyroid goiter, ascending thoracic aortic aneurysm, previous heart failure with mildly dilated left ventricle and mild LV systolic dysfunction, mild concentric left ventricular hypertrophy, physiologic valvular regurgitation, and mild pulmonary hypertension (estimated PA systolic pressure 41 mmHg) by previous echocardiography (2013), coronary artery disease, s/p successful percutaneous coronary intervention (12/31/2014) during which a BMS (Integrity) was deployed to her proximal LAD with 0% residual stenosis and THONY-3 flow and no significant areas of stenosis in her other vessels, as well as, osteoarthritis who presented following a fall with a right shoulder pain and the subsequent discovery of right shoulder swelling, with fluid in the joint on CT scan, s/p aspiration of turbid fluid, with culture positive for Group G strep and with positive blood cultures for gram-positive cocci in chains. She is also maintained on prednisone 2.5 mg a day and is s/p steroid injections to both knees every 3 months and, more recently, to the right shoulder, approximately one week prior to admission. According to ID her presentation was consistent with sepsis secondary to a septic right shoulder joint, likely related to the recent steroid injection, with possible seeding of the recently replaced right hip. Another issue is her anemia c/w blood loss exacerbated by warfarin anticoagulation.Of note she did drop her H&H after her recent surgery, requiring blood transfusions. Note that she is s/p recent hospitalization at [facility] (05/11-05/14/2016) following a fall for an impacted fracture of the right femoral neck for which a right hip hemiarthroplasty was performed 05/11/2016 with the postoperative need for blood transfusion. Mrs. Marr is without complaints, is progressing well clinically POD #1, and has no significant electrocardiographic changes on this mornings tracing. * Given her history of coronary artery disease would maintain her hemoglobin at or above 7.0 g/dL. * Resume antiplatelet therapy (aspirin) to prevent in-stent thrombus when okay with orthopedic surgery. * Continue beta ish therapy perioperatively. * Continue the rest of her cardiac regimen if no contraindications. * Continue to follow-up on ID recommendations. * DVT prophylaxis. Continue telemetry? Not applicable
[2016-06-13 14:09] VITALS: BP 130/80
--- NOTE | 2016-06-13 14:24 | Discharge Summary ---
Hospital Course Allergies: Coded Allergies: hydromorphone (From DILAUDID) (hallucinations 05/10/16) morphine (hallucinations 05/10/16) oxycodone (hallucinations 05/10/16)
--- NOTE | 2016-06-13 14:24 | Discharge Summary ---
See Addendum Visit Information Visit Dates Admission Date: 06/11/16 Discharge Date: 06/17/16 Hospital Course Course Attending Physician: TRAE WELLER MD Primary Care Physician: CIARAN ENGLE MD Hospital Course: This 80-year-old female with past medical history of diabetes, CHF, hypertension , hyperlipidemia, hyperthyroidism, colon cancer status post hemicolectomy, coronary artery disease status post bare metal stent, thoracic aortic aneurysm, recently discharged after right hip arthroplasty on 05/11/[address] Leon presents from home after a fall 2 days ago. History of recent acute shots on the right shoulder and right hip arthroplasty about a month ago at [facility]. Vitals and admission pressure 175/71 which dropped to 150/70 on repeat check, respiration 20, pulse 93, temperature 98.9, oxygen saturation 99% on room air. Labs an admission WBC 20.6, hemoglobin 7.9, hematocrit 24.4, platelet count 294, sodium 135, potassium 4.5, BUN 39, creatinine 1.3, [place] 8.3, troponin less than 0.01, proBNP 2610,. CAT scan on admission showed Severe right glenohumeral osteoarthritis. Large joint effusion and bursal fluid collection which contains multiple foci of gas. Correlate for history of a penetrating injury or signs of infection. There could be a small fracture of an osteophyte along the inferior glenoid rim. Otherwise, no acute fracture is evident. Supraspinatus and infraspinatus calcific tendinitis with presumed full-thickness tearing, which may be extensive given the atrophy and fatty infiltration of the supraspinatus and infraspinatus muscles. Chronic-appearing fractures of mid and upper thoracic vertebral bodies. Hospital course 1. Septic arthritis: Patient was admitted to general medical floor rashes hemodynamically stable. Blood cultures and urine cultures were drawn. Orthopedic consultation was obtained who aspirated the shoulder joint. She was started on empiric antibiotic coverage with vancomycin. Infectious disease was consulted. Antibiotics was changed from vancomycin to ampicillin as a blood culture and the body fluid culture came back positive for beta strep group G. Cardiac clearance was obtained given patient's previous history of reduced ejection fraction. Patient was taken for arthroscopic right shoulder irrigation and debridement with irrigation of the right hip superficial wound infection on 06/12/2016. Drain was placed on the right hip which was removed the day after surgery. Echocardiogram was done to r/o endocarditis. Ampicillin changed to Penicillin 4 million units IV every 4 hours to complete a four-week course of antibiotics (until July 10). Check ESR and follow weekly while on antibiotics. Patient's H&H dropped. No active evidence of bleeding seen. She was transfused 2 units of blood prior to the procedure. Her H&H remained stable postoperatively. Per surgical recommendation patient can be full weightbearing on the legs as tolerated and allow complete range of motion of the shoulder. She should follow -up with Dr. Leon in 2 weeks after surgery. She was on anticoagulation with Coumadin for postop DVT prophylaxis after her hip surgery. Her warfarin was held for procedure. Per surgery she would not need further postop anticoagulation and she was continued on subcutaneous Heparin for DVT prophylaxis while she was in the hospital which was started after the procedure. 2. Diabetes mellitus: She was maintained on NovoLog sliding scale and Levemir. Her blood sugars within acceptable range. 3. Congestive heart failure with just ejection fraction: Lasix was initially held given that she was nothing by mouth and with IV fluids. Her Lasix was resumed. 4. Hyperlipidemia: Continued on statins 5. H/o multinodular goiter: Was continued on outpatient dose of methimazol 6. Gout: Allopurinol was initially held which was later restarted after his uric acid level was within normal limits and gout ruled out. Continue PT as tolerated with full range of motion of shoulder as tolerated. Allergies: Coded Allergies: hydromorphone (From DILAUDID) (hallucinations 05/10/16) morphine (hallucinations 05/10/16) oxycodone (hallucinations 05/10/16) Significant Procedures: ARTHROSCOPIC RIGHT SHOULDER IRRIGATION AND DEBRIDEMENT WITH IRRIGATION AND DEBRIDEMENT RIGHT HIP SUPERFICIAL WOUND INFECTION Pertinent Lab Results: Laboratory Tests 06/17 06/16 0530 0700 Chemistry Sodium (137 - 145 mmol/L) 137 Potassium (3.5 - 5.1 mmol/L) 3.4 L Chloride (98 - 107 mmol/L) 97 L Carbon Dioxide (22 - 30 mmol/L) 28 Anion Gap (5 - 16) 12 BUN (7 - 17 mg/dL) 19 H Creatinine (0.5 - 1.0 mg/dL) 0.8 Estimated GFR (>60 ml/min) > 60 BUN/Creatinine Ratio (7 - 25 %) 23.8 Magnesium (1.6 - 2.3 mg/dL) 1.3 L Coagulation PT (9.4 - 12.5 SEC) 12.7 H INR (0.90 - 1.19) 1.21 H Hematology CBC w Diff NO MAN DIFF REQ WBC (4.8 - 10.8 /CUMM) 8.5 RBC (4.20 - 5.40 /CUMM) 2.96 L Hgb (12.0 - 16.0 G/DL) 8.4 L Hct (37 - 47 %) 25.7 L MCV (81.0 - 99.0 FL) 86.9 MCH (27.0 - 31.0 PG) 28.5 RDW (11.5 - 14.5 %) 18.1 H Plt Count (130 - 400 /CUMM) 206 MPV (7.4 - 10.4 FL) 8.5 Gran % (42.2 - 75.2 %) 77.6 H Lymphocytes % (20.5 - 51.1 %) 10.6 L Monocytes % (1.7 - 9.3 %) 10.9 H Eosinophils % (0 - 5 %) 0.6 Basophils % (0.0 - 2.0 %) 0.3 Absolute Granulocytes (1.4 - 6.5 /CUMM) 6.6 H Absolute Lymphocytes (1.2 - 3.4 /CUMM) 0.9 L Absolute Monocytes (0.10 - 0.60 /CUMM) 0.9 H Absolute Eosinophils (0.0 - 0.7 /CUMM) 0.1 Absolute Basophils (0.0 - 0.2 /CUMM) 0 PUBS MCHC (33.0 - 37.0 G/DL) 32.8 L 06/15 0615 Chemistry Sodium (137 - 145 mmol/L) 140 Potassium (3.5 - 5.1 mmol/L) 3.7 Chloride (98 - 107 mmol/L) 105 Carbon Dioxide (22 - 30 mmol/L) 24 Anion Gap (5 - 16) 12 BUN (7 - 17 mg/dL) 26 H Creatinine (0.5 - 1.0 mg/dL) 0.9 Estimated GFR (>60 ml/min) 60 BUN/Creatinine Ratio (7 - 25 %) 28.9 H Hematology CBC w Diff NO MAN DIFF REQ WBC (4.8 - 10.8 /CUMM) 8.6 RBC (4.20 - 5.40 /CUMM) 3.14 L Hgb (12.0 - 16.0 G/DL) 9.0 L Hct (37 - 47 %) 27.3 L MCV (81.0 - 99.0 FL) 86.9 MCH (27.0 - 31.0 PG) 28.7 RDW (11.5 - 14.5 %) 18.4 H Plt Count (130 - 400 /CUMM) 227 MPV (7.4 - 10.4 FL) 8.4 Gran % (42.2 - 75.2 %) 81.7 H Lymphocytes % (20.5 - 51.1 %) 9.4 L Monocytes % (1.7 - 9.3 %) 8.4 Eosinophils % (0 - 5 %) 0.5 Basophils % (0.0 - 2.0 %) 0 L Absolute Granulocytes (1.4 - 6.5 /CUMM) 7.1 H Absolute Lymphocytes (1.2 - 3.4 /CUMM) 0.8 L Absolute Monocytes (0.10 - 0.60 /CUMM) 0.7 H Absolute Eosinophils (0.0 - 0.7 /CUMM) 0 Absolute Basophils (0.0 - 0.2 /CUMM) 0 PUBS MCHC (33.0 - 37.0 G/DL) 33.1 Disposition Summary Disposition Principal Diagnosis: 1. Septic arthritis Status post debridement 2. Diabetes mellitus 3. Congestive heart failure with preserved ejection fraction Additional Diagnosis: 1. Hyperlipidemia 2. History of multinodular goiter 3. Gout Discharge Disposition: SNF Discharge Instructions General Discharge Information Code Status: Do Not Resucitate/Intubat Patient's Diet: Diabetic diet Patient's Activity: As tolerated with PT Follow-Up Instructions/Appts: 1. Follow-up with her primary care physician in a week upon discharge 2. Follow-up with Dr. Leon in 1 week for monitoring right shoulder joint and hip joint for evidence of infection 3. Continue physical therapy allowing full range of motion of the shoulder and hip as tolerated. 4. Complete the course of antibiotic and recommended 5. CHECK ESR and follow weekly while on antibiotics. Medications at Discharge Discharge Medications: Stop taking the following medications: Warfarin Sodium (Warfarin Sodium) 2 MG TABLET ORAL 5 PM Qty = 7 Continue taking these medications: Vitamin D (Vitamin D3) 2,000 IU SGL 1 Tablet ORAL Every night Days = 30 Comments: NOT GIVEN Multivitamin (Daily Multiple) 1 TAB TAB 1 Tablet ORAL Every night Days = 30 Comments: NOT GIVEN Allopurinol (Allopurinol) 100 MG TAB 2 Tablet ORAL Every Morning Days = 60 Comments: NOT GIVEN Prednisone (Prednisone) 2.5 MG TABLET 1 Tablet ORAL DAILY Comments: Last Taken: 05/14/16 Time: 1100 Alendronate Sodium (Alendronate Sodium) 70 MG TABLET 1 Tablet ORAL EVERY MONDAY Instructions: in the morning, at least 30 minutes before the first food, beverage, or medication of the day Comments: NOT GIVEN Lisinopril (Lisinopril) 10 MG TABLET 1 Tablet ORAL TWICE DAILY Qty = 30 Comments: Last Taken: 05/14/16 Time: 0600 Furosemide (Lasix) 40 MG TABLET 1 Tablet ORAL Every Morning Comments: Last Taken: 05/14/16 Time: 1100 Ferrous Sulfate (Ferrous Sulfate) 325 MG TABLET 1 Tablet ORAL Every Morning Comments: Last Taken: 05/14/16 Time: 1100 Cyanocobalamin (Vitamin B-12) 1,000 MCG TABLET 1 Tablet ORAL Every Morning Comments: NOT GIVEN Aspirin (Ecotrin*) 81 MG TABLET.DR 1 Tablet ORAL DAILY Comments: NOT GIVEN Duloxetine HCl (Cymbalta) 60 MG CAPSULE.DR 1 Capsule ORAL TAKE AT BEDTIME Comments: NOT GIVEN Methimazole (Methimazole) 5 MG TABLET 0.5 Tablet ORAL DAILY Comments: Last Taken: 05/14/16 Time: 1100 Docusate Sodium (Docusate Sodium) 100 MG CAPSULE 1 Tablet ORAL DAILY Qty = 30 Comments: Last Taken: 05/14/16 Time: 1100 Linagliptin (Tradjenta) 5 MG TABLET 1 Tablet ORAL 5 PM Comments: NOT GIVEN Atorvastatin Calcium (Atorvastatin Calcium) 40 MG TABLET 1 Tablet ORAL DAILY Qty = 30 Comments: Last Taken: 05/14/16 Time: 1100 Biotin (Biotin) 10,000 MCG CAPSULE 1 Capsule ORAL 5 PM Comments: NOT GIVEN Labetalol HCl (Labetalol HCl) 300 MG TABLET 1 Tablet ORAL TWICE DAILY Qty = 60 Comments: Last Taken: 05/14/16 Time: 0600 Lidocaine (Lidoderm) 5 % ADH..PATCH 1 Patch On the skin as needed for LOWER BACK Instructions: may wear up to 12 hours Comments: PER PT MED LIST Tylenol With Codeine (Tylenol With Codeine #3 Tablet) 300 MG-30 MG TABLET 1-2 Tablet ORAL EVERY 4-6 HOURS NEEDED as needed for PAIN Qty = 30 Insulin Lispro (Humalog Kwikpen U-100) (Unknown Strength) INSULN.PEN Unknown Dose SEE SLIDING SCALE Qty = 15 Instructions: fingerstick blood sugar 80-150 mg/dl no insulin 151-200 mg/dl 1 unit 201-250 mg/dl 2 units 251-300 mg/dl 3 units 301-350 mg/dl 4 units 351-400 mg/dl 6 units more then 400 mg/dl 8 units and then call your doctor Insulin Glargine,Hum.rec.anlog (Lantus Solostar) 100 UNIT/ML (3 ML) INSULN.PEN 15 Unit Inject into fatty tissue Every night Qty = 15 Calcium Carbonate/Vitamin D3 (Calcium 500 + D Tablet) 500 MG-400 TABLET 1 Tablet ORAL DAILY Start taking the following new medications: Penicillin G Potassium (Pen G K 2 Million Unit/50 Ml) 2 MILLION UNIT/50 ML FROZ.PIGGY 2 Bag INTRAVEN Every 4 hours Days = 23 No Refills Instructions: COMPLETE THE TOTAL COURSE OF ABX UNTILL July Copies To: ONIEL LEDESMA,CIARAN Perera
[2016-06-13 22:06] VITALS: BP 160/70
--- NOTE | 2016-06-14 04:34 | Event Note ---
Event Note Event Note: I was called by her nurse around 330 am because patient has been upset, crying. I went to see the patient, she kept asking "why did this (ie septic arthritis) happen to me? Will I be able to go home again? Will I be able to walk or use my hands?". She is noticably anxious. She wants to go home to her 5-month-old puppy , whom she has "waited a long time to get". She kept stating that "I don't have that much time left to live, I just want to spend as much time with my puppy as possible". Currently, her daughter is taking care of her puppy. She is distressed about the possibilty of having to go to rehab, given previous bad experiences. I reassured her that the antibiotics she is getting will improve her condition. She appeared to have calmed down after I spent 30 minutes talking to her. She is refusing any medications to help with her anxiety. She "wants to be wide awake and feel everything". She is currently not complaining of pain. Of note, pt takes tylenol 3 at home, and was requesting it earlier in the night. I ordered a one time dose. Assessment: Acute on chronic anxiety Plan: Continue duloxetine Address discharge plan (home vs rehab) in the am by the primary team
[2016-06-14 07:00] VITALS: BP 128/70
--- NOTE | 2016-06-14 07:28 | PN- Housestaff ---
TAD FORD 06/14/16 0728: Subjective Follow-up For: Mechanical fall Right septic shoulder joint Subjective: And examine patient, states her right shoulder is still sore. Denies fever, chills, chest pain, palpitations. Overnight she had a bit of anxiety. Review of Systems Constitutional: Denies: chills, diaphoresis, fever, malaise, weakness, unexplained weight loss. Cardiovascular: Denies: chest pain, edema, orthopena, palpitations, peripheral edema, syncope. Respiratory: Denies: cough, hemoptysis, orthopnea, short of breath, sputum production, stridor, wheezing. Objective Last 24 Hrs of Vital Signs/I&O Vital Signs Date Time Temp Pulse Resp B/P Pulse O2 O2 Flow FiO2 Ox Delivery Rate 06/14 0700 99.0 70 18 128/70 98 Room Air 06/13 2214 66 160/70 06/13 2206 98.0 66 20 160/70 100 06/13 1409 97.8 81 20 130/80 97 Nasal 2.0L Cannula 06/13 0839 76 144/62 Intake & Output 06/14 1600 06/14 0800 06/14 0000 Intake Total 640 Output Total 350 302 Balance 290 -302 Intake, IV 400 Intake, Oral 240 Number 0 Bowel Movements Output, Stool 2 Output, Urine 350 300 Physical Exam General Appearance: Alert, Oriented X3, Cooperative, No Acute Distress Cardiovascular: Normal S1, Normal S2, No Murmurs Lungs: Clear to Auscultation, Normal Air Movement Abdomen: Normal Bowel Sounds, Soft Extremities: mild swelling over right shoulder, mild tenderness to palpation, no worsening erythema or increased warmth noted Current Medications: Current Medications Sig/Sabina Start time Last Medication Dose Route Stop Time Status Admin Allopurinol 200 MG DAILY 06/14 1000 AC PO Ampicillin 2,000 MG Q8 06/12 1200 AC 06/14 Sodium Chloride 100 ML IV 0525 Aspirin Buffered 81 MG DAILY 06/13 1000 AC 06/13 PO 0842 Atorvastatin Calcium 40 MG DAILY 06/13 1000 AC 06/13 PO 0840 Cholecalciferol 2,000 IU DAILY 06/13 1000 AC 06/13 PO 0839 Dextrose/Sodium 1,000 ML Q20H 06/12 2100 AC 06/14 Chloride IV 0104 Docusate Sodium 100 MG DAILY 06/13 1000 AC 06/13 PO 0842 Duloxetine HCl 60 MG AT BEDTIME 06/12 2200 AC 06/13 PO 2214 Ferrous Sulfate 325 MG DAILY 06/13 1000 AC 06/13 PO 0840 Furosemide 40 MG .STK-MED ONE 06/13 1421 DC PO 06/13 1422 Furosemide 40 MG QAM 06/13 1354 AC 06/13 PO 1427 Heparin Sodium 5,000 UNIT Q8 06/13 1400 AC 06/14 (Porcine) SC 0525 Insulin Aspart 0 TIDAC 06/13 0800 AC 06/13 SC 1704 Insulin Detemir 15 UNITS QPM 06/13 2200 AC 06/13 SC 2215 Labetalol HCl 300 MG BID 06/12 2200 AC 06/13 PO 2214 Lidocaine 1 PAT DAILY 06/13 1000 AC 06/13 EXT 0842 Methimazole 2.5 MG DAILY 06/13 1000 AC 06/13 PO 0841 Patient Medication 1 ED .STK-MED ONE 06/13 1356 DC Teaching ED 06/13 1357 Tramadol HCl 50 MG Q6P PRN 06/12 2330 AC 06/13 PO 1846 Last 24 Hrs of Lab/Anil Results Last 24 Hrs of Labs/Mics: Laboratory Tests 06/14/16 0730: Sodium Pending, Potassium Pending, Chloride Pending, Carbon Dioxide Pending, Anion Gap Pending, BUN Pending, Creatinine Pending, BUN/Creatinine Ratio Pending , CBC w Diff Pending, WBC Pending, RBC Pending, Hgb Pending, Hct Pending, MCV Pending, MCH Pending, RDW Pending, Plt Count Pending, MPV Pending, PUBS MCHC Pending Assessment/Plan Assessment: 80-year-old woman with past medical history of diabetes, CHF, hypertension, hyperlipidemia, hyperthyroidism, colon cancer status post hemicolectomy, coronary artery disease status post bare metal stent, thoracic aortic aneurysm, recently discharged after right hip arthroplasty on 05/11/[address] Leon presents from home after a fall 2 days ago. Recent steroid shot on the right shoulder about one week ago for osteoarthritis. Plan 1. Septic right shoulder/right hip joint: Status post s/p arthroscopic washout of the right shoulder and I&D of the right hip for septic shoulder joint and infected hip wound. currently on IV ampicillin day 3 and day 4 of antibiotics ID is on board appreciate recommendations echo pending follow up with Dr Macdonald two weeks after discharge 2. anemia in the setting of anticoagulation with warfarin: Warfarin discontinued patient is guaic positive, in 2013 workup was done by Dr. Wolff, she has history of malignant polyp in 2000 status post right sided colectomy, push enteroscopy and colonoscopy at that time showed no active bleeding and was positive for 6 mm probable pseudopolyp at base of sigmoid diverticulum Patient was recommended to have outpatient PillCam 3. Heart failure with preserved ejection fraction: Continues to be stable. Cardiology on board appreciate recommendations. On home dose of Lasix 4. Diabetic mellitus: Continue basal insulin and continue insulin sliding scale continue to monitor fingersticks 5. Hyperlipidemia: We will continue her statins. 6. Hypothyroidism: We will continue her methimazole 7. Gout: Allopurinol to be restarted today Full CODE STATUS DVT prophylaxis subcutaneous heparin Healthy diet Problem List: 1. CHF (congestive heart failure) 2. Anemia 3. Gout 4. Septic arthritis Pain Ratin Pain Location: Right shoulder Pain Goal: Pain 4 or less Pain Plan: Current regimen Tomorrow's Labs & Rationales: septic angela WELLER MD,[facility] 06/14/16 1441: Attending MD Review Statement Attending Statement Attending MD Statement: examined this patient, discuss w/resident/PA/JUNIOR PROGRAMMER ANALYST, agreed w/resident/PA/JUNIOR PROGRAMMER ANALYST, reviewed EMR data (avail) Attending Assessment/Plan: 81F PMH T2DM, CHF, HTN, HLD, hyperthyroidism, colon cancer status post hemicolectomy, coronary artery disease s/p BMS, thoracic aortic aneurysm, recently discharged after right hip arthroplasty on 05/11/2016 admitted with and right shoulder pain with recent steroid injection to right shoulder found to have septic arthritis of the right shoulder with irrigation and debridement of the right hip and shoulder on 06/12, with blood and joint cultures growing group G strep. Patient feels well today with no pain, afebrile, comfortable. 1. Septic arthritis of the right shoulder 2. Infected right hip wound 3. Fall, initial encounter 4. Streptococcal bacteremia 5. Symptomatic anemia 6. HIstory of coronary artery disease Plan - Continue Ampicillin - Follow cultures - Follow ID and orthopedic recommendations - May restart ASA - Discontinue Coumadin - Monitor CBC - Obtain echocardiogram - Continue remaining home medications - DVT PPx with ALPS
[2016-06-14 09:50] LABS: ABSOLUTE BASOPHIL COUNT 0 /CUMM (0.0-0.2); ABSOLUTE EOSINOPHIL COUNT 0 /CUMM (0.0-0.7); ABSOLUTE GRANULOCYTE CT 9.9 /CUMM (1.4-6.5); ABSOLUTE LYMPH COUNT 0.7 /CUMM (1.2-3.4); ABSOLUTE MONOCYTE COUNT 0.9 /CUMM (0.10-0.60); BASOPHIL % 0 % (0.0-2.0); EOSINOPHIL % 0.1 % (0-5); GRANULOCYTE % 85.9 % (42.2-75.2); HEMATOCRIT 27.8 % (37-47); MEAN CORPUSCULAR HGB CONC 32.9 G/DL (33.0-37.0); MEAN PLATELET VOLUME 7.9 FL (7.4-10.4); PLATELET COUNT 241 /CUMM (130-400); RBC DISTRIBUTION WIDTH 18.7 % (11.5-14.5); RED BLOOD CELL CT 3.15 /CUMM (4.20-5.40); WHITE BLOOD CELL COUNT 11.5 /CUMM (4.8-10.8)
--- NOTE | 2016-06-14 11:24 | PN- Infect Dx ---
Subjective Subjective: Afebrile without complaints Objective Last 24 Hrs of Vital Signs/I&O Vital Signs Date Time Temp Pulse Resp B/P Pulse O2 O2 Flow FiO2 Ox Delivery Rate 06/14 0935 70 128/70 06/14 0700 99.0 70 18 128/70 98 Room Air 06/13 2214 66 160/70 06/13 2206 98.0 66 20 160/70 100 06/13 1409 97.8 81 20 130/80 97 Nasal 2.0L Cannula Intake & Output 06/14 1600 06/14 0800 06/14 0000 Intake Total 640 Output Total 350 302 Balance 290 -302 Intake, IV 400 Intake, Oral 240 Number 0 Bowel Movements Output, Stool 2 Output, Urine 350 300 Physical Exam Other Physical Findings: She appears comfortable in no acute distress Lungs are clear Heart irregular with a 2/6 systolic ejection murmur Extremities right shoulder limited motion, with edema, but no erythema; right hip dressing intact; 2+ edema both lower extremities Results Last 24 Hours of Lab Results: Laboratory Tests 06/14 919 Chemistry Sodium (137 - 145 mmol/L) 142 Potassium (3.5 - 5.1 mmol/L) 3.7 Chloride (98 - 107 mmol/L) 106 Carbon Dioxide (22 - 30 mmol/L) 24 Anion Gap (5 - 16) 13 BUN (7 - 17 mg/dL) 33 H Creatinine (0.5 - 1.0 mg/dL) 1.2 H Estimated GFR (>60 ml/min) 43 L BUN/Creatinine Ratio (7 - 25 %) 27.5 H Hematology CBC w Diff Pending WBC Pending RBC Pending Hgb Pending Hct Pending MCV Pending MCH Pending RDW Pending Plt Count Pending MPV Pending Gran % Pending Lymphocytes % Pending Monocytes % Pending Eosinophils % Pending Basophils % Pending Absolute Granulocytes Pending Absolute Lymphocytes Pending Absolute Monocytes Pending Absolute Eosinophils Pending Absolute Basophils Pending PUBS MCHC Pending Last 24 Hours of Anil Results: Blood cultures June 11 positive for Group G strep Right hip aspiration at the bedside June 12 positive for Group G strep OR culture right hip (soft tissue) positive for Group G strep Assessment/Plan Impression: Group G strep sepsis possibly secondary to her right shoulder infection, status post a recent steroid injection approximately one week prior to admission, versus a surgical site infection of her right hip, status post hemiarthroplasty one month prior to admission, now 2 days status post arthroscopic irrigation and debridement of the right shoulder joint and I&D of the right hip "superficial wound infection" at the same time. The possibility of a deeper infection within the right hip joint must be considered and will discuss further with Orthopedics. She remains afebrile with white blood cell count decreased now on Ampicillin. With her bacteremia and valvular heart disease would also rule out endocarditis. Suggestion: 1. Orthopedic follow-up regarding need for further evaluation of the right hip 2. Repeat blood cultures 2 3. Echocardiogram 4. Continue Ampicillin
[2016-06-14 14:00] VITALS: BP 150/70
[2016-06-14 22:06] VITALS: BP 142/70
[2016-06-15 06:18] VITALS: BP 118/76
--- NOTE | 2016-06-15 07:15 | PN- Housestaff ---
TAD FORD 06/15/16 0714: Subjective Follow-up For: Mechanical fall Right septic shoulder joint Subjective: seen and examined patient, offers no complaints. Review of Systems Constitutional: Denies: no symptoms, chills, diaphoresis, fever, malaise, weakness, unexplained weight loss. Cardiovascular: Denies: chest pain, edema, orthopena, palpitations, peripheral edema, syncope. Respiratory: Denies: cough, hemoptysis, orthopnea, short of breath, sputum production, stridor, wheezing. Objective Last 24 Hrs of Vital Signs/I&O Vital Signs Date Time Temp Pulse Resp B/P Pulse O2 O2 Flow FiO2 Ox Delivery Rate 06/15 0618 98.3 67 20 118/76 96 Room Air 06/14 2206 98.4 70 20 142/70 96 06/14 2152 164/70 06/14 1450 Room Air 06/14 1400 97.6 78 20 150/70 97 Room Air Intake & Output 06/15 1600 06/15 0800 06/15 0000 Intake Total 520 480 Output Total 650 800 Balance -130 -320 Intake, IV 400 Intake, Oral 120 480 Number 0 Bowel Movements Output, Urine 650 800 Physical Exam General Appearance: Alert, Oriented X3, Cooperative Cardiovascular: Regular Rate, Normal S1, Normal S2 Lungs: Clear to Auscultation, Normal Air Movement Abdomen: Normal Bowel Sounds, Soft, No Tenderness Extremities: no swelling, erthyma or increased warmth over right shoulder or right hip Current Medications: Current Medications Sig/Sabina Start time Last Medication Dose Route Stop Time Status Admin Allopurinol 200 MG DAILY 06/14 1000 AC 06/14 PO 0934 Ampicillin 2,000 MG Q8 06/12 1200 AC 06/15 Sodium Chloride 100 ML IV 0608 Aspirin Buffered 81 MG DAILY 06/13 1000 AC 06/14 PO 0934 Atorvastatin Calcium 40 MG DAILY 06/13 1000 AC 06/14 PO 0935 Cholecalciferol 2,000 IU DAILY 06/13 1000 AC 06/14 PO 0935 Dextrose/Sodium 1,000 ML Q20H 06/12 2100 DC 06/14 Chloride IV 0104 Docusate Sodium 100 MG DAILY 06/13 1000 AC 06/14 PO 0934 Duloxetine HCl 60 MG AT BEDTIME 06/12 2200 AC 06/14 PO 215 Ferrous Sulfate 325 MG DAILY 06/13 1000 AC 06/14 PO 0934 Furosemide 40 MG QAM 06/13 1354 AC 06/14 PO 0934 Heparin Sodium 5,000 UNIT Q8 06/13 1400 AC 06/15 (Porcine) SC 0608 Insulin Aspart 0 TIDAC 06/13 0800 AC 06/14 SC 1756 Insulin Detemir 15 UNITS QPM 06/13 2200 AC 06/14 SC 2156 Labetalol HCl 300 MG BID 06/12 2200 AC 06/14 PO 2152 Lidocaine 1 PAT DAILY 06/13 1000 AC 06/14 EXT 0934 Methimazole 2.5 MG DAILY 06/13 1000 AC 06/14 PO 0935 Tramadol HCl 50 MG Q6P PRN 06/12 2330 AC 06/13 PO 1846 Last 24 Hrs of Lab/Anil Results Last 24 Hrs of Labs/Mics: Laboratory Tests 06/15/16 0615: Anion Gap 12, Estimated GFR 60, BUN/Creatinine Ratio 28.9 H, CBC w Diff NO MAN DIFF REQ, RBC 3.14 L, MCV 86.9, MCH 28.7, RDW 18.4 H, MPV 8.4, Gran % 81.7 H, Lymphocytes % 9.4 L, Monocytes % 8.4, Eosinophils % 0.5, Basophils % 0 L, Absolute Granulocytes 7.1 H, Absolute Lymphocytes 0.8 L, Absolute Monocytes 0.7 H, Absolute Eosinophils 0, Absolute Basophils 0, PUBS MCHC 33.1 Microbiology 06/14 1420 BLOOD: Blood Culture - RECD 06/14 1415 BLOOD: Blood Culture - RECD Assessment/Plan Assessment: 80-year-old woman with past medical history of diabetes, CHF, hypertension, hyperlipidemia, hyperthyroidism, colon cancer status post hemicolectomy, coronary artery disease status post bare metal stent, thoracic aortic aneurysm, recently discharged after right hip arthroplasty on 05/11/[address] Leon presents from home after a fall 2 days ago. Recent steroid shot on the right shoulder about one week ago for osteoarthritis. Found to have bacteremia secondary to septic right shoulder joint Plan 1. Septic right shoulder/right hip joint: Status post s/p arthroscopic washout of the right shoulder and I&D of the right hip for septic shoulder joint and infected hip wound. Blood and body fliud cultures from Jun 12 grew Beta strep G, repeat blood cultures from Jun 14 pending currently on IV ampicillin day 4 and day 5 of antibiotics ID is on board appreciate recommendations echo pending follow up with Dr Macdonald two weeks after discharge 2. Chronic Anemia Warfarin discontinued patient is guaic positive, in 2013 workup was done by Dr. Wolff, she has history of malignant polyp in 2000 status post right sided colectomy, push enteroscopy and colonoscopy at that time showed no active bleeding and was positive for 6 mm probable pseudopolyp at base of sigmoid diverticulum Patient was recommended to have outpatient PillCam 3. Heart failure with preserved ejection fraction: Continues to be stable. Cardiology on board appreciate recommendations. On home dose of Lasix 4. Diabetic mellitus: Continue basal insulin and continue insulin sliding scale continue to monitor fingersticks 5. Hyperlipidemia: We will continue her statins. 6. Hypothyroidism: We will continue her methimazole 7. Gout: Allopurinol to be restarted today Full CODE STATUS DVT prophylaxis subcutaneous heparin Healthy diet Problem List: 1. Septic arthritis 2. Diastolic CHF Pain Ratin Pain Location: na Pain Goal: Pain 4 or less Pain Plan: current regimen Tomorrow's Labs & Rationales: none required TRAE WELLER MD 06/15/16 1520: Attending MD Review Statement Attending Statement Attending MD Statement: examined this patient, discuss w/resident/PA/BELT PICKER, agreed w/resident/PA/BELT PICKER, reviewed EMR data (avail) Attending Assessment/Plan: 81F PMH T2DM, CHF, HTN, HLD, hyperthyroidism, colon cancer status post hemicolectomy, coronary artery disease s/p BMS, thoracic aortic aneurysm, recently discharged after right hip arthroplasty on 05/11/2016 admitted with and right shoulder pain with recent steroid injection to right shoulder found to have septic arthritis of the right shoulder with irrigation and debridement of the right hip and shoulder on 06/12, with blood and joint cultures growing group G strep. Patient feels well today with no pain, afebrile, comfortable. 1. Septic arthritis of the right shoulder 2. Infected right hip wound 3. Fall, initial encounter 4. Streptococcal bacteremia 5. Symptomatic anemia 6. HIstory of coronary artery disease Plan - Continue Ampicillin - Follow cultures - Follow ID and orthopedic recommendations - Monitor CBC - Continue remaining home medications - DVT PPx with ALPS - May require additional surgery on hip, awaiting orthopedic recommendations
[2016-06-15 08:03] LABS: ABSOLUTE BASOPHIL COUNT 0 /CUMM (0.0-0.2); ABSOLUTE EOSINOPHIL COUNT 0 /CUMM (0.0-0.7); ABSOLUTE GRANULOCYTE CT 7.1 /CUMM (1.4-6.5); ABSOLUTE LYMPH COUNT 0.8 /CUMM (1.2-3.4); ABSOLUTE MONOCYTE COUNT 0.7 /CUMM (0.10-0.60); BASOPHIL % 0 % (0.0-2.0); EOSINOPHIL % 0.5 % (0-5); GRANULOCYTE % 81.7 % (42.2-75.2); HEMATOCRIT 27.3 % (37-47); MEAN CORPUSCULAR HGB 28.7 PG (27.0-31.0); MEAN CORPUSCULAR HGB CONC 33.1 G/DL (33.0-37.0); MEAN CORPUSCULAR VOLUME 86.9 FL (81.0-99.0); MEAN PLATELET VOLUME 8.4 FL (7.4-10.4); PLATELET COUNT 227 /CUMM (130-400); RBC DISTRIBUTION WIDTH 18.4 % (11.5-14.5); RED BLOOD CELL CT 3.14 /CUMM (4.20-5.40); WHITE BLOOD CELL COUNT 8.6 /CUMM (4.8-10.8)
[2016-06-15 15:25] VITALS: BP 120/80
--- NOTE | 2016-06-15 16:17 | Cons- Psychiatry ---
Psychiatric Consult Date of Consult: 06/15/16 Reason for Consult: Depression and anxiety History of Present Illness: CC: "I'm just feeling down in the dumps... I've been scared since been in the hospital" HPI: 81-year-old female presents to [facility] emergency department status post fall on June 11, approximately 1 week post discharge from rehabilitation. She was subsequently found to have a septic joint and was admitted medically now on 2 A. The patient has had multiple recent emergency department visits hospital stays with 3 admissions to [facility] in the past year. PMH: Please see the H&P for a complete listing Diabetes, CHF, hypertension, hyperlipidemia, hyperthyroidism, colon cancer status post hemicolectomy, coronary artery disease status post bare metal stent, thoracic aortic aneurysm, recently discharged after right hip arthroplasty on Past Psych History: Denies formal psych diagnosis -Outpatient Currently prescribed Cymbalta patient states it's ordered by her neurologist, states it is "miracle pill" -Inpatient None Family Psych History: Denies Substance History Denies Family Substance History: Son - PSA Social: female who currently resides with her daughter and son-in-law. Mother took 3 sons and 3 daughters. Raised in intact family with one brother who is now past away. Abuse/Trauma: Not assessed Current Home Psychotropic Medications: Med Duloxetine HCl 60 MG PO AT BEDTIME 06/12/16 2200 Current Hospital Psychotropic Medications: Med Duloxetine HCl 60 MG PO AT BEDTIME 06/12/16 2200 Allergies: Coded Allergies: hydromorphone (From DILAUDID) (hallucinations 05/10/16) morphine (hallucinations 05/10/16) oxycodone (hallucinations 05/10/16) Current Medications: Med Allopurinol 200 MG PO DAILY 06/14/16 1000 Ampicillin 2,000 MG IV Q8 06/12/16 1200 Sodium Chloride 100 ML Aspirin Buffered 81 MG PO DAILY 06/13/16 1000 Atorvastatin Calcium 40 MG PO DAILY 06/13/16 1000 Cholecalciferol 2,000 IU PO DAILY 06/13/16 1000 Docusate Sodium 100 MG PO DAILY 06/13/16 1000 Duloxetine HCl 60 MG PO AT BEDTIME 06/12/16 2200 Ferrous Sulfate 325 MG PO DAILY 06/13/16 1000 Furosemide 40 MG PO QAM 06/13/16 1354 Heparin Sodium (Porcine) 5,000 UNIT SC Q8 06/13/16 1400 Insulin Aspart SC TIDAC 06/13/16 0800 Insulin Detemir 15 UNITS SC QPM 06/13/16 2200 Labetalol HCl 300 MG PO BID 06/12/16 2200 Lidocaine 1 PAT EXT DAILY 06/13/16 1000 Methimazole 2.5 MG PO DAILY 06/13/16 1000 Tramadol HCl 50 MG PO Q6P PRN 06/12/16 2330 Past History Past Medical History Neurological: NONE EENT: cataracts Cardiovascular: aortic aneurysm, CAD (status post stent), CHF, hypertension, hyperlipidemia, AORTIC ANEURYSM Respiratory: lung nodules Gastrointestinal: GERD, HAS BLEED- ?FROM WHERE Hepatic: cholelithiasis Renal: ACUTE KIDNEY FAILURE recurrent urinary tract infection Musculoskeletal: chronic back pain, gout, osteoarthritis Psychiatric: anxiety Endocrine: diabetes, hyperthyroidism, right thyroid goiter Blood Disorders: anemia Cancer(s): colon/rectal cancer 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 Past Surgical History Surgical History: cholecystectomy, colon resection (right hemicolectomy), hip replacement (right hemiarthroplasty), hysterectomy (partial), spinal fusion, L BREAST NIPPLE REMOVED L HIP ORIF uterine prolapse surgery status post left hip ORIF Psychosocial History Strengths/Capabilities: Supportive family, able to articulate needs well Physical Limitations (Interventions): Multiple falls Psychiatric Treatment History Psych Treatment Psychiatric Treatment Yes Outpatient Treatment Yes (Med only) Diagnosis: Denies any previous diagnosis Risk Factors: age (under 24/over 65), chronic/serious med cond. Substance Use/Abuse History Drug Use/Abuse Substances Used/Abused No Substance Abuse Treatment Substance Abuse Treatment Past Substance Abuse [place] No Assessment/Plan Mental Status Orientation: Person, Place, Situation Affect: Broad Speech: WNL Neuro-vegetative: Appetite Decreased, Energy Decreased Mental Status Exam: Mental Status Exam Presentation/Appearance: Calm and cooperative with evaluation, sitting in chair. Hospital garb Orientation: Oriented 4 Sensorium: Awake and alert Eye contact: Appropriate Affect: Full range congruent with stated mood Mood: "Down in the dumps... Scared" Depression: Endorses, of note patient denied depression prior to hospitalization but also stated that Cymbalta has been a miracle drug for her which is been on for mood for over a year she indicates previous mood issues. Anxiety: Endorses Thought Content: - Denies SI/HI, AH/VH, PI. States and also believes they will not kill themselves. - Denies Hopeless/Helpless Thoughts Thought Process: Linear and goal directed Speech: Normal tone and rate and prosody Language: Serbian fluent Judgment: Intact Insight: Intact Cognition: Memory: Attention/Concentration: Some deficits, is able to spell world forwards and backwards, unable to complete simple counting task, unable to do serial threes, unable to state the months the year backwards Abstractions:[place] MMSE: (not completed at this visit) Of note patient states she doesn't not really wish to have additional medications added to her regimen but may be open to an increase in Cymbalta. Per house staff report patient has been anxious and depressed throughout hospitalization. Lab Results: Laboratory Tests 06/15/16 0615: Anion Gap 12, Estimated GFR 60, BUN/Creatinine Ratio 28.9 H, CBC w Diff NO MAN DIFF REQ, RBC 3.14 L, MCV 86.9, MCH 28.7, RDW 18.4 H, MPV 8.4, Gran % 81.7 H, Lymphocytes % 9.4 L, Monocytes % 8.4, Eosinophils % 0.5, Basophils % 0 L, Absolute Granulocytes 7.1 H, Absolute Lymphocytes 0.8 L, Absolute Monocytes 0.7 H, Absolute Eosinophils 0, Absolute Basophils 0, PUBS MCHC 33.1 06/14/16 0920: Anion Gap 13, Estimated GFR 43 L, BUN/Creatinine Ratio 27.5 H, CBC w Diff NO MAN DIFF REQ, RBC 3.15 L, MCV 88.0, MCH 29.0, RDW 18.7 H, MPV 7.9, Gran % 85.9 H, Lymphocytes % 6.4 L, Monocytes % 7.6, Eosinophils % 0.1, Basophils % 0 L, Absolute Granulocytes 9.9 H, Absolute Lymphocytes 0.7 L, Absolute Monocytes 0.9 H, Absolute Eosinophils 0, Absolute Basophils 0, PUBS MCHC 32.9 L 06/13/16 0710: Anion Gap 11, Estimated GFR 39 L, BUN/Creatinine Ratio 28.5 H, PT 15.7 H, INR 1.50 H, CBC w Diff NO MAN DIFF REQ, RBC 2.98 L, MCV 87.7, MCH 29.3, RDW 18.3 H, MPV 8.3, Gran % 95.1 H, Lymphocytes % 1.6 L, Monocytes % 3.3, Eosinophils % 0, Basophils % 0 L, Absolute Granulocytes 11.1 H, Absolute Lymphocytes 0.2 L, Absolute Monocytes 0.4, Absolute Eosinophils 0, Absolute Basophils 0, PUBS MCHC 33.5 06/12/16 1800: Sodium Cancelled, Potassium Cancelled, Chloride Cancelled, Carbon Dioxide Cancelled, Anion Gap Cancelled, BUN Cancelled, Creatinine Cancelled, BUN/ Creatinine Ratio Cancelled, CBC w Diff Cancelled, WBC Cancelled, RBC Cancelled, Hgb Cancelled, Hct Cancelled, MCV Cancelled, MCH Cancelled, RDW Cancelled, Plt Count Cancelled, MPV Cancelled, PUBS MCHC Cancelled Microbiology 06/14 1420 BLOOD: Blood Culture - RES 06/14 1414 BLOOD: Blood Culture - RES 06/12 1854 EXTREMITIE: Culture & Sensitivity - CAN Cancelled: WRONG BAIL BOND AGENT 06/12 1854 EXTREMITIE: Gram Stain - CAN Cancelled: WRONG BAIL BOND AGENT 06/12 1854 TRUNK/O.R.: Culture & Sensitivity - COMP BETA STREP GROUP G 06/12 1854 TRUNK/O.R.: Gram Stain - COMP Diffential Diagnosis: r/o major depressive disorder with anxious features r/o depression due to another medical condition Impression: 81-year-old female admitted status post fall with a history of antidepressant use for over a year presents with depression and anxiety. She reports she had no mood or anxiety issues prior to hospitalization. She appears demoralized by current medical condition and cites it as the primary cause of her mood issues. It appears her issues are primarily situational at this time. She is not acutely suicidal homicidal or gravely disabled at this time. Given infection, age, opiate medication and hospitalization for orthopedic problem patient is at high risk for acute confusional state. Delirium prevention interventions would be warranted. Provisional Treatment Plan: 1. Please draw thyroid panel, B12, vitamin D levels to rule out potential additional causes of depression and anxiety. 2. Please continue to monitor sodium levels. Cymbalta can contribute to hyponatremia and patient had borderline low sodium on admission. If levels remain stable patient may be a candidate for a modest additional dose in the a.m. 3. Please order pastoral care consult to explore patient's spiritual needs. 4. Would consider low-dose trazodone when necessary for anxiety if patient changes her mind regarding additional meds. We will be happy to recommend dose if she does decide she would like an additional medication. 5. Would consider melatonin 5 mg by mouth daily at bedtime if patient is having difficulty sleeping. 6. Please continue to avoid benzodiazepines, opioid analgesics, and meds with strong anticholinergic properties as much as possible to prevent further confusion. 7. Please initiate the following nonpharmacologic interventions: -Avoid nursing and medical procedures during sleep hours whenever possible - Cluster at night interventions that must be completed as much as possible to minimize sleep disruption - Decrease noise in patient area during sleeping hours - Reduce lighting at night - Ensure patient has any sensory aids close by that he regularly uses Thank you for including psychiatry in this case we'll continue to follow. Kobi Veronica APRN, pager [phone]
--- NOTE | 2016-06-15 16:30 | PN- Infect Dx ---
Subjective Subjective: Afebrile. She does note lower back pain, which has been a chronic problem. Objective Last 24 Hrs of Vital Signs/I&O Vital Signs Date Time Temp Pulse Resp B/P Pulse O2 O2 Flow FiO2 Ox Delivery Rate 06/15 1532 Room Air 2.0L 06/15 1528 Room Air 2.0L 06/15 1525 97.7 76 20 120/80 97 06/15 1024 67 118/76 06/15 0618 98.3 67 20 118/76 96 Room Air 06/14 2206 98.4 70 20 142/70 96 06/14 2152 164/70 Intake & Output 06/15 1600 06/15 0800 06/15 0000 Intake Total 1220 520 480 Output Total 400 650 800 Balance 820 -130 -320 Intake, IV 400 Intake, Oral 1220 120 480 Number 1 0 Bowel Movements Output, Urine 400 650 800 Patient 164 lb Weight Physical Exam Other Physical Findings: She appears comfortable in no acute distress Lungs are clear Heart regular rhythm with a 1/6 systolic ejection murmur Extremities right shoulder swelling, tender to palpation with decreased range of motion; right hip incision clean, with no erythema or induration, nontender on palpation Results Last 24 Hours of Lab Results: Laboratory Tests 06/15 0615 Chemistry Sodium (137 - 145 mmol/L) 140 Potassium (3.5 - 5.1 mmol/L) 3.7 Chloride (98 - 107 mmol/L) 105 Carbon Dioxide (22 - 30 mmol/L) 24 Anion Gap (5 - 16) 12 BUN (7 - 17 mg/dL) 26 H Creatinine (0.5 - 1.0 mg/dL) 0.9 Estimated GFR (>60 ml/min) 60 BUN/Creatinine Ratio (7 - 25 %) 28.9 H Hematology CBC w Diff NO MAN DIFF REQ WBC (4.8 - 10.8 /CUMM) 8.6 RBC (4.20 - 5.40 /CUMM) 3.14 L Hgb (12.0 - 16.0 G/DL) 9.0 L Hct (37 - 47 %) 27.3 L MCV (81.0 - 99.0 FL) 86.9 MCH (27.0 - 31.0 PG) 28.7 RDW (11.5 - 14.5 %) 18.4 H Plt Count (130 - 400 /CUMM) 227 MPV (7.4 - 10.4 FL) 8.4 Gran % (42.2 - 75.2 %) 81.7 H Lymphocytes % (20.5 - 51.1 %) 9.4 L Monocytes % (1.7 - 9.3 %) 8.4 Eosinophils % (0 - 5 %) 0.5 Basophils % (0.0 - 2.0 %) 0 L Absolute Granulocytes (1.4 - 6.5 /CUMM) 7.1 H Absolute Lymphocytes (1.2 - 3.4 /CUMM) 0.8 L Absolute Monocytes (0.10 - 0.60 /CUMM) 0.7 H Absolute Eosinophils (0.0 - 0.7 /CUMM) 0 Absolute Basophils (0.0 - 0.2 /CUMM) 0 PUBS MCHC (33.0 - 37.0 G/DL) 33.1 Last 24 Hours of Anil Results: Blood cultures June 14 negative Assessment/Plan Impression: Group G strep sepsis in the setting of a recent right hip hemiarthroplasty (one month prior to admission) and a right shoulder steroid injection (one week prior to admission) with infection of the right shoulder joint, status post arthroscopic irrigation and debridement 3 days ago, and infection of the right hip, status post I&D of a "superficial wound infection" also 3 days ago, with no aspiration of the hip joint performed. The possibility of a deeper infection within the right hip joint must be considered and this has been discussed with Orthopedics. She remains afebrile with white blood cell count now normal on Ampicillin. Given her bacteremia and valvular heart disease endocarditis is also a possibility. Suspect she will require a prolonged course of IV antibiotics; therefore a PICC can be placed. Suggestion: 1. Further management of her right hip per Orthopedics 2. Await Echocardiogram 3. Proceed with placement of PICC 4. Continue Ampicillin
[2016-06-15 22:20] VITALS: BP 122/70
[2016-06-16 06:15] VITALS: BP 118/72
[2016-06-16 08:28] LABS: PT 12.7 SEC (9.4-12.5)
--- NOTE | 2016-06-16 09:27 | PN- Housestaff ---
TAD FORD 06/16/16 0927: Subjective Follow-up For: Mechanical fall Right septic shoulder joint Subjective: Seen and examined patient. Denies fever, chills, chest pain, shortness of breath. Discussed at length the need for PICC line. Patient is very fearful. Review of Systems Constitutional: Denies: chills, diaphoresis, fever, malaise, weakness, unexplained weight loss. Cardiovascular: Denies: chest pain, edema, orthopena, palpitations, peripheral edema, syncope. Respiratory: Denies: cough, hemoptysis, orthopnea, short of breath, sputum production, stridor, wheezing. Objective Last 24 Hrs of Vital Signs/I&O Vital Signs Date Time Temp Pulse Resp B/P Pulse O2 O2 Flow FiO2 Ox Delivery Rate 06/16 0615 98.1 74 20 118/72 96 Room Air 06/15 2220 98.2 72 20 122/70 98 Room Air 06/15 2150 72 122/70 06/15 1532 Room Air 2.0L 06/15 1528 Room Air 2.0L 06/15 1525 97.7 76 20 120/80 97 Intake & Output 06/16 1600 06/16 0800 06/16 0000 Intake Total 270 390 Output Total 800 1400 Balance -530 -1010 Intake, IV 150 150 Intake, Oral 120 240 Output, Urine 800 1400 Physical Exam General Appearance: Alert, Oriented X3, Cooperative Cardiovascular: Regular Rate, Normal S1, Normal S2 Lungs: Clear to Auscultation, Normal Air Movement Abdomen: Normal Bowel Sounds, Soft, No Tenderness Assessment/Plan Assessment: 80-year-old woman with past medical history of diabetes, CHF, hypertension, hyperlipidemia, hyperthyroidism, colon cancer status post hemicolectomy, coronary artery disease status post bare metal stent, thoracic aortic aneurysm, recently discharged after right hip arthroplasty on 05/11/[address] Leon presents from home after a fall 2 days ago. Recent steroid shot on the right shoulder about one week ago for osteoarthritis. Found to have bacteremia secondary to septic right shoulder joint. PICC line to be placed today Plan 1. Septic right shoulder/right hip joint: Status post s/p arthroscopic washout of the right shoulder and I&D of the right hip for septic shoulder joint and infected hip wound. Blood and body fliud cultures from Jun 12 grew Beta strep G, repeat a prelim blood cultures from Jun 14 show no growth currently on IV ampicillin day 5 and day 6 of antibiotics ID is on board appreciate recommendations echo pending Awaiting surgery input on whether or the intervention is required follow up with Dr Macdonald two weeks after discharge 2. Chronic Anemia Warfarin discontinued Stable 3. Heart failure with preserved ejection fraction: Continues to be stable. Cardiology on board appreciate recommendations. On home dose of Lasix 4. Diabetic mellitus: Continue basal insulin and continue insulin sliding scale continue to monitor fingersticks 5. Hyperlipidemia: We will continue her statins. 6. Hypothyroidism: We will continue her methimazole 7. Gout: Allopurinol to be restarted today Full CODE STATUS DVT prophylaxis subcutaneous heparin Healthy diet Problem List: 1. Septic arthritis 2. S/P ORIF (open reduction internal fixation) fracture 3. Diabetes Pain Ratin Pain Location: Not applicable Pain Goal: Pain 4 or less Pain Plan: Current regimen Tomorrow's Labs & Rationales: cbc/bep TRAE WELLER MD 06/16/16 1452: Attending MD Review Statement Attending Statement Attending MD Statement: examined this patient, discuss w/resident/PA/BUS MECHANIC, agreed w/resident/PA/BUS MECHANIC, reviewed EMR data (avail) Attending Assessment/Plan: 81F PMH T2DM, CHF, HTN, HLD, hyperthyroidism, colon cancer status post hemicolectomy, coronary artery disease s/p BMS, thoracic aortic aneurysm, recently discharged after right hip arthroplasty on 05/11/2016 admitted with and right shoulder pain with recent steroid injection to right shoulder found to have septic arthritis of the right shoulder with irrigation and debridement of the right hip and shoulder on 06/12, with blood and joint cultures growing group G strep. Patient feels well today with no pain, afebrile, comfortable. 1. Septic arthritis of the right shoulder 2. Infected right hip wound 3. Fall, initial encounter 4. Streptococcal bacteremia 5. Symptomatic anemia 6. HIstory of coronary artery disease Plan - Continue Ampicillin - Follow cultures - No further surgical intervention by orthopedics at this time - PICC line placed - Monitor CBC - Continue remaining home medications - DVT PPx with ALPS - Anticipated discharge to [facility] tomorrow
--- NOTE | 2016-06-16 11:49 | PN- Infect Dx ---
Subjective Subjective: Afebrile. She still notes discomfort in the right shoulder. She has no pain in the right hip. Objective Last 24 Hrs of Vital Signs/I&O Vital Signs Date Time Temp Pulse Resp B/P Pulse O2 O2 Flow FiO2 Ox Delivery Rate 06/16 1128 64 150/75 06/16 0615 98.1 74 20 118/72 96 Room Air 06/15 2220 98.2 72 20 122/70 98 Room Air 06/15 2150 72 122/70 06/15 1532 Room Air 2.0L 06/15 1528 Room Air 2.0L 06/15 1525 97.7 76 20 120/80 97 Intake & Output 06/16 1600 06/16 0800 06/16 0000 Intake Total 270 390 Output Total 800 1400 Balance -530 -1010 Intake, IV 150 150 Intake, Oral 120 240 Output, Urine 800 1400 Physical Exam Other Physical Findings: She appears comfortable in no acute distress Lungs are clear Extremities right shoulder swelling, tender on palpation, with decreased range of motion; right upper extremity edema persists; PICC in the left upper extremity in place; right hip incision clean, with no erythema, tenderness or drainage Results Last 24 Hours of Lab Results: Laboratory Tests 06/16 0700 Coagulation PT (9.4 - 12.5 SEC) 12.7 H INR (0.90 - 1.19) 1.21 H Last 24 Hours of Anil Results: Blood cultures June 14 negative Assessment/Plan Impression: Stable with temperatures and white blood cell count normal on Ampicillin for Group G strep sepsis presumably secondary to a right shoulder infection, status post steroid injection one week prior to admission, now 4 days status post arthroscopic irrigation and debridement of the shoulder and I&D of a "superficial wound infection" of the right hip status post right hip hemiarthroplasty one month prior to admission, with no aspiration of the hip joint performed. The possibility of a deeper infection within the right hip joint must be considered and this has been discussed with Orthopedics. Suggestion: 1. Orthopedic follow-up regarding her right hip 2. Follow-up Echocardiogram 3. Continue Ampicillin
--- NOTE | 2016-06-16 12:31 | RADIOLOGY REPORT ---
EXAMINATION: XR PORTABLE CHEST CLINICAL INFORMATION: PICC placement for antibiotics COMPARISON: Multiple chest x-rays most recent prior dated 06/12/2016 TECHNIQUE: Portable view of the chest was obtained. FINDINGS: Interval placement of the left-sided PICC line with the tip in the lower SVC/cavoatrial junction. Prominence of the mediastinal silhouette has increased over the interval. This may be associated with positional change and slight rotation. Repeat chest x-ray is therefore recommended. Ectatic and tortuous thoracic aorta. Stable right paratracheal density with mild deviation of the trachea to the left. Low lung volumes. Hazy prominence of the right sided tissue markings. Mild interstitial edema cannot be excluded. Degenerative changes noted again in the right shoulder. IMPRESSION: 1. Right-sided PICC line is in place. 2. Interval prominence of the mediastinal silhouette is most likely due to slight rotation and positioning. Follow-up chest x-ray without rotation is therefore recommended. 3. Suggestion of mild interstitial edema. 4. Stable right thyroid enlargement with deviation of the trachea to the left.
[2016-06-16 15:18] VITALS: BP 140/70
--- NOTE | 2016-06-16 17:36 | PN- Cardiology ---
Subjective Subjective: Admits to some right shoulder discomfort, but otherwise feels improved. Denies any fever, chills, etc. Also denies any chest discomfort, palpitations, shortness of breath, etc. POD #4 s/p arthroscopic right shoulder irrigation and debridement with irrigation and debridement right hip superficial wound infection secondary to right glenohumeral shoulder joint septic arthritis and right hip superficial wound infection. Objective Vital Signs and I&Os Vital Signs Date Time Temp Pulse Resp B/P Pulse O2 O2 Flow FiO2 Ox Delivery Rate 06/16 1518 98.1 76 20 140/70 97 06/16 1457 Room Air 2.0L 06/16 1128 64 150/75 06/16 0615 98.1 74 20 118/72 96 Room Air 06/15 2220 98.2 72 20 122/70 98 Room Air 06/15 2150 72 122/70 Intake & Output 06/16 1600 06/16 0800 06/16 0000 06/15 1600 06/15 0800 06/15 0000 Intake Total 1650 250 398 3851 520 480 Output Total 144 026 8831 400 650 800 Balance 1050 -530 -1010 820 -130 -320 Intake, IV 250 150 150 400 Intake, Oral 1400 249 269 5500 120 480 Number 1 1 0 Bowel Movements Output, Urine 600 343 1058 400 650 800 Patient 164 lb Weight Physical Exam: Well-developed, overweight, pale appearing female in no acute distress. Vital signs: See above. Lungs: Decreased breath sounds bilaterally. Heart: S1, S2 (occasionally irregular) with grade 1-2/6 systolic murmur. Extremities: No pedal edema. Current Medications: Current Medications Sig/Sabina Start time Last Medication Dose Route Stop Time Status Admin Allopurinol 200 MG DAILY 06/14 999 AC 06/16 PO 1129 Ampicillin 2,000 MG Q8 06/12 1200 AC 06/16 Sodium Chloride 100 ML IV 1446 Aspirin Buffered 81 MG DAILY 06/13 999 AC 06/16 PO 1131 Atorvastatin Calcium 40 MG DAILY 06/13 999 AC 06/16 PO 1130 Cholecalciferol 2,000 IU DAILY 06/13 999 AC 06/16 PO 1130 Docusate Sodium 100 MG DAILY 06/13 999 AC 06/16 PO 1131 Duloxetine HCl 60 MG AT BEDTIME 06/120 AC 06/15 PO 2151 Ferrous Sulfate 325 MG DAILY 06/13 999 AC 06/16 PO 1131 Furosemide 40 MG QAM 06/13 1354 AC 06/16 PO 1131 Heparin Sodium 5,000 UNIT Q8 06/13 1400 AC 06/16 (Porcine) SC 1446 Insulin Aspart 0 TIDAC 06/13 0800 AC 06/16 SC 1231 Insulin Detemir 15 UNITS QPM 06/13 2200 AC 06/15 SC 2151 Labetalol HCl 300 MG BID 06/12 2200 AC 06/16 PO 1128 Lidocaine 1 PAT DAILY 06/13 1000 AC 06/16 EXT 1114 Methimazole 2.5 MG DAILY 06/13 1000 AC 06/16 PO 1121 Patient Medication 1 ED .STK-MED ONE 06/16 1327 DC Teaching ED 06/16 1328 Tramadol HCl 50 MG Q6P PRN 06/12 2330 AC 06/16 PO 1233 Results Last 48 Hrs of Labs/Mics: Laboratory Tests 06/16/16 0700: PT 12.7 H, INR 1.21 H 06/15/16 0615: Anion Gap 12, Estimated GFR 60, BUN/Creatinine Ratio 28.9 H, CBC w Diff NO MAN DIFF REQ, RBC 3.14 L, MCV 86.9, MCH 28.7, RDW 18.4 H, MPV 8.4, Gran % 81.7 H, Lymphocytes % 9.4 L, Monocytes % 8.4, Eosinophils % 0.5, Basophils % 0 L, Absolute Granulocytes 7.1 H, Absolute Lymphocytes 0.8 L, Absolute Monocytes 0.7 H, Absolute Eosinophils 0, Absolute Basophils 0, PUBS MCHC 33.1 Assessment/Plan Assessment/Plan Elderly female with a history of obesity, hypertension, dyslipidemia, gout, diabetes mellitus, pulmonary nodules, right thyroid goiter, ascending thoracic aortic aneurysm, previous heart failure with mildly dilated left ventricle and mild LV systolic dysfunction, mild concentric left ventricular hypertrophy, physiologic valvular regurgitation, and mild pulmonary hypertension (estimated PA systolic pressure 41 mmHg) by previous echocardiography (2013), coronary artery disease, s/p successful percutaneous coronary intervention (12/31/2014) during which a BMS (Integrity) was deployed to her proximal LAD with 0% residual stenosis and THONY-3 flow and no significant areas of stenosis in her other vessels, as well as, osteoarthritis who presented following a fall with a right shoulder pain and the subsequent discovery of right shoulder swelling, with fluid in the joint on CT scan, s/p aspiration of turbid fluid, with culture positive for Group G strep and with positive blood cultures for gram-positive cocci in chains. She is also maintained on prednisone 2.5 mg a day and is s/p steroid injections to both knees every 3 months and, more recently, to the right shoulder, approximately one week prior to admission. According to ID her presentation was consistent with sepsis secondary to a septic right shoulder joint, likely related to the recent steroid injection, with possible seeding of the recently replaced right hip. Another issue is her anemia c/w blood loss exacerbated by warfarin anticoagulation.Of note she did drop her H&H after her recent surgery, requiring blood transfusions. Note that she is s/p recent hospitalization at [facility] (05/11-05/14/2016) following a fall for an impacted fracture of the right femoral neck for which a right hip hemiarthroplasty was performed 05/11/2016 with the postoperative need for blood transfusion. Mrs. Marr is without complaints, is progressing well clinically POD #1, and has no significant electrocardiographic changes on this mornings tracing. * Given her history of coronary artery disease would maintain her hemoglobin at or above 7.0 g/dL. * Resume antiplatelet therapy (aspirin) to prevent in-stent thrombus when okay with orthopedic surgery. * Continue beta ish therapy perioperatively. * Continue the rest of her cardiac regimen if no contraindications. * Continue to follow-up on ID recommendations. * DVT prophylaxis. Continue telemetry? Not applicable
[2016-06-16 23:06] VITALS: BP 190/90
[2016-06-16 23:35] VITALS: BP 188/88
[2016-06-17 02:20] VITALS: BP 158/82
[2016-06-17 06:09] LABS: ABSOLUTE BASOPHIL COUNT 0 /CUMM (0.0-0.2); ABSOLUTE EOSINOPHIL COUNT 0.1 /CUMM (0.0-0.7); ABSOLUTE GRANULOCYTE CT 6.6 /CUMM (1.4-6.5); ABSOLUTE LYMPH COUNT 0.9 /CUMM (1.2-3.4); ABSOLUTE MONOCYTE COUNT 0.9 /CUMM (0.10-0.60); BASOPHIL % 0.3 % (0.0-2.0); EOSINOPHIL % 0.6 % (0-5); GRANULOCYTE % 77.6 % (42.2-75.2); HEMATOCRIT 25.7 % (37-47); MEAN CORPUSCULAR HGB 28.5 PG (27.0-31.0); MEAN CORPUSCULAR HGB CONC 32.8 G/DL (33.0-37.0); MEAN CORPUSCULAR VOLUME 86.9 FL (81.0-99.0); MEAN PLATELET VOLUME 8.5 FL (7.4-10.4); PLATELET COUNT 206 /CUMM (130-400); RBC DISTRIBUTION WIDTH 18.1 % (11.5-14.5); RED BLOOD CELL CT 2.96 /CUMM (4.20-5.40); WHITE BLOOD CELL COUNT 8.5 /CUMM (4.8-10.8)
[2016-06-17 06:31] VITALS: BP 158/70
--- NOTE | 2016-06-17 07:28 | PN- Housestaff ---
TAD FORD 06/17/16 0728: Subjective Follow-up For: Mechanical fall Right septic shoulder joint Subjective: Seen and examined patient, sitting in the chair by bedside. Does not complain of pain states the pain is well controlled. Denies fever, chills, chest pain, shortness of breath. Review of Systems Constitutional: Denies: chills, diaphoresis, fever, malaise, weakness, unexplained weight loss. Cardiovascular: Denies: chest pain, edema, orthopena, palpitations, peripheral edema, syncope. Respiratory: Denies: cough, hemoptysis, orthopnea, short of breath, sputum production, stridor, wheezing. Objective Last 24 Hrs of Vital Signs/I&O Vital Signs Date Time Temp Pulse Resp B/P Pulse O2 O2 Flow FiO2 Ox Delivery Rate 06/17 0631 98.7 80 20 158/70 96 Room Air 06/17 0220 158/82 06/16 2335 98.8 110 20 188/88 98 Room Air 06/16 2317 90 190/90 06/16 2306 90 190/90 06/16 2146 115 200/100 06/16 1518 98.1 76 20 140/70 97 06/16 1457 Room Air 2.0L 06/16 1128 64 150/75 Intake & Output 06/17 1600 06/17 0800 06/17 0000 Intake Total 250 700 Output Total 1200 Balance 250 -500 Intake, IV 150 200 Intake, Oral 100 500 Output, Urine 1200 Physical Exam General Appearance: Alert, Oriented X3, Cooperative, No Acute Distress Cardiovascular: Regular Rate, Normal S1, Normal S2 Lungs: Normal Air Movement Extremities: +2 b/l pitting edema, Picc line in right UE Current Medications: Current Medications Sig/Sabina Start time Last Medication Dose Route Stop Time Status Admin Allopurinol 200 MG DAILY 06/14 1000 AC 06/16 PO 1129 Amlodipine Besylate 5 MG ONCE ONE 06/16 2315 DC 06/16 PO 06/16 2316 2317 Ampicillin 2,000 MG Q8 06/12 1200 AC 06/17 Sodium Chloride 100 ML IV 0532 Aspirin Buffered 81 MG DAILY 06/13 1000 AC 06/16 PO 1131 Atorvastatin Calcium 40 MG DAILY 06/13 1000 AC 06/16 PO 1130 Cholecalciferol 2,000 IU DAILY 06/13 1000 AC 06/16 PO 1130 Docusate Sodium 100 MG DAILY 06/13 1000 AC 06/16 PO 1131 Duloxetine HCl 60 MG AT BEDTIME 06/12 2200 AC 06/16 PO 2146 Ferrous Sulfate 325 MG DAILY 06/13 1000 AC 06/16 PO 1131 Furosemide 40 MG QAM 06/13 1354 AC 06/16 PO 1131 Heparin Sodium 5,000 UNIT Q8 06/13 1400 AC 06/17 (Porcine) SC 0533 Insulin Aspart 0 TIDAC 06/13 0800 AC 06/16 SC 1824 Insulin Detemir 15 UNITS QPM 06/13 2200 AC 06/16 SC 2146 Labetalol HCl 300 MG BID 06/12 2200 AC 06/16 PO 2146 Lidocaine 1 PAT DAILY 06/13 1000 AC 06/16 EXT 1114 Magnesium Sulfate 2 GM ONCE ONE 06/17 899 UNVr Dextrose/Water 250 ML IV 06/17 1259 Melatonin 5 MG AT BEDTIME 06/16 2315 AC 06/17 PO 0231 Methimazole 2.5 MG DAILY 06/13 1000 AC 06/16 PO 1121 Patient Medication 1 ED .STK-MED ONE 06/16 1327 DC Teaching ED 06/16 1328 Potassium Chloride 40 MEQ ONCE ONE 06/17 899 UNVr PO 06/17 0901 Tramadol HCl 50 MG Q6P PRN 06/12 2330 AC 06/17 PO 0231 Last 24 Hrs of Lab/Anil Results Last 24 Hrs of Labs/Mics: Laboratory Tests 06/17/16 0530: Anion Gap 12, Estimated GFR > 60, BUN/Creatinine Ratio 23.8, Magnesium 1.3 L, CBC w Diff NO MAN DIFF REQ, RBC 2.96 L, MCV 86.9, MCH 28.5, RDW 18.1 H, MPV 8.5, Gran % 77.6 H, Lymphocytes % 10.6 L, Monocytes % 10.9 H, Eosinophils % 0.6, Basophils % 0.3, Absolute Granulocytes 6.6 H, Absolute Lymphocytes 0.9 L, Absolute Monocytes 0.9 H, Absolute Eosinophils 0.1, Absolute Basophils 0, PUBS MCHC 32.8 L Assessment/Plan Assessment: 80-year-old woman with past medical history of diabetes, CHF, hypertension, hyperlipidemia, hyperthyroidism, colon cancer status post hemicolectomy, coronary artery disease status post bare metal stent, thoracic aortic aneurysm, recently discharged after right hip arthroplasty on 05/11/[address] Leon presents from home after a fall 2 days ago. Recent steroid shot on the right shoulder about one week ago for osteoarthritis. Found to have bacteremia secondary to septic right shoulder joint. PICC line in place. Looks clinically improved. Plan 1. Septic right shoulder/right hip joint: Status post s/p arthroscopic washout of the right shoulder and I&D of the right hip for septic shoulder joint and infected hip wound. Blood and body fliud cultures from Jun 12 grew Beta strep G, repeat a prelim blood cultures from Jun 14 show no growth currently on IV ampicillin day 6 and day 7 of antibiotics will switch to Penicillin 4 million units IV every 4 hours to complete a four-week course of antibiotics (until July 10) ID is on board appreciate recommendations Echo ejection fraction is visually estimated at 65%, Pulmonary artery systolic pressure is normal. Awaiting surgery input on whether or the intervention is required follow up with Dr Macdonald two weeks after discharge 2. Chronic Anemia Warfarin discontinued H/H 8.4/25.7 3. ?Heart failure with preserved ejection fraction: Echo ejection fraction is visually estimated at 65%, pulmonary artery systolic pressure is normal. Normal left ventricular diastolic filling pattern Continues to be stable. On home dose of Lasix Cardiology on board appreciate recommendations. 4. Diabetic mellitus: Continue basal insulin and continue insulin sliding scale continue to monitor fingersticks 5. Hyperlipidemia: We will continue her statins. 6. Hypothyroidism: We will continue her methimazole 7. Gout: Allopurinol to be restarted today Full CODE STATUS DVT prophylaxis subcutaneous heparin Healthy diet Problem List: 1. Anemia 2. Septic arthritis Pain Ratin Pain Location: na Pain Goal: Pain 4 or less Pain Plan: current regimen Tomorrow's Labs & Rationales: bep/cbc TRAE WELLER MD 06/17/16 1054: Attending MD Review Statement Attending Statement Attending MD Statement: examined this patient, discuss w/resident/PA/CONTROL SUPERVISOR, agreed w/resident/PA/CONTROL SUPERVISOR, reviewed EMR data (avail) Attending Assessment/Plan: 81F PMH T2DM, CHF, HTN, HLD, hyperthyroidism, colon cancer status post hemicolectomy, coronary artery disease s/p BMS, thoracic aortic aneurysm, recently discharged after right hip arthroplasty on 05/11/2016 admitted with and right shoulder pain with recent steroid injection to right shoulder found to have septic arthritis of the right shoulder with irrigation and debridement of the right hip and shoulder on 06/12, with blood and joint cultures growing group G strep. Patient feels well today with no pain, afebrile, comfortable. PICC placed . 1. Septic arthritis of the right shoulder 2. Infected right hip wound 3. Fall, initial encounter 4. Streptococcal bacteremia 5. Symptomatic anemia 6. HIstory of coronary artery disease Plan - Stable for discharge to [facility] - Continue Ampicillin - No further surgical intervention by orthopedics at this time - PICC line placed - Continue remaining home medications - Follow psychiatry recommendations - Follow up ID recommendations for length of antibiotic treatment
--- NOTE | 2016-06-17 08:47 | ECHOCARDIOGRAM REPORT ---
XENA OVALLE Age: 81 : 1935 Gender: F Exam Date: 06/16/2016 19:32 Exam Location: [address] [place] [address] A Ht (in): 62 Wt (lb): 164 BSA: 1.83 BP: 130 / 80 Ordering Physician: MARIAN LYONS MD Referring Physician: Yamil Almaraz MD Technologist: Romina Paris [facility] Room Number: [id number] Indications: SOURCE OF EMBOLUS Rhythm: Sinus Technical Quality: good FINDINGS Left Ventricle Normal left ventricular size with mild left ventricular hypertrophy. Normal systolic function with no obvious regional wall motion abnormalities. Normal left ventricular diastolic filling pattern for age. The ejection fraction is visually estimated at 65%. Right Ventricle The right ventricle is mildly enlarged with normal function. Right Atrium The right atrium is normal in size. Left Atrium The left atrium is mildly enlarged. The interatrial septum is intact. Mitral Valve The mitral valve demonstrates mild annular calcification with normal function. There is trace mitral regurgitation. Aortic Valve Mildly calcified aortic valve with mild stenosis. There is mild aortic regurgitation. Tricuspid Valve The tricuspid valve is normal in structure and function. There is mild tricuspid regurgitation. Pulmonary artery systolic pressure is normal. Pulmonic Valve Structurally normal pulmonic valve. There is trace pulmonic regurgitation. Pericardium Normal pericardium without effusion. No pleural effusion. Great Vessels Mildly enlarged aortic root and ascending aorta. The aortic arch and great vessels are well seen and are normal. CONCLUSIONS 1. Normal EF of 65%. 2. Mild left atrial enlargment. 3. Mild right ventricular enlargement. 4. Mild left atrial enlargement. 5. Trace mitral regurgitation. 6. Mild tricuspid regurgitation. 7. Mild aortic regurgitation with mild aortic stensosis. 8. Trace pulmonic regurgitation. 9. Mildly enlarged aortic root and ascending aorta. Amish Moran M.D. (Electronically Signed) Final Date: 17 June 2016 08:46 MEASUREMENTS (Male / Female) Normal Values 2D ECHO LV Diastolic Diameter PLAX 4.5 cm 4.2 - 5.9 / 3.9 - 5.3 cm LV Systolic Diameter PLAX 2.9 cm 2.1 - 4.0 cm LV Fractional Shortening PLAX 35.6 % 25 - 46 % LV Ejection Fraction 2D Teich 65.2 % IVS Diastolic Thickness 1.4 cm LVPW Diastolic Thickness 1.4 cm LV Relative Wall Thickness 0.6 RV Internal Dim ED PLAX 3.8 cm 1.9 - 3.8 cm LVOT Diameter 1.9 cm Aortic Root Diameter 3.8 cm LA Systolic Diameter LX 4.4 cm 3.0 - 4.0 / 2.7 - 3.8 cm LA Volume 36.0 cm 18 - 58 / 22 - 52 cm Ascending Aorta Diameter 4.2 cm DOPPLER AV Peak Velocity 229.0 cm/s AV Peak Gradient 21.0 mmHg AV Mean Velocity 149.0 cm/s AV Mean Gradient 10.0 mmHg AV Velocity Time Integral 50.9 cm LVOT Peak Velocity 98.6 cm/s LVOT Peak Gradient 3.9 mmHg LVOT Mean Velocity 73.1 cm/s LVOT Mean Gradient 2.0 mmHg LVOT Velocity Time Integral 21.9 cm LVOT Stroke Volume 62.1 cm AV Area Cont Eq vti 1.2 cm AV Area Cont Eq pk 1.2 cm MV Peak Velocity 169.0 cm/s MV Peak Gradient 11.4 mmHg MV Mean Velocity 97.8 cm/s MV Mean Gradient 5.0 mmHg Mitral E Point Velocity 140.0 cm/s MV PHT Velocity 174.0 cm/s MV Deceleration Pacific 1107.0 cm/s MV Pressure Half Time 47.2 ms MV Area PHT 4.7 cm MV Deceleration Time 132.0 ms TR Peak Velocity 228.0 cm/s TR Peak Gradient 20.8 mmHg Right Atrial Pressure 5.0 mmHg Pulmonary Artery Systolic Pressu 25.8 mmHg Right Ventricular Systolic Press 25.8 mmHg PV Peak Velocity 125.0 cm/s PV Peak Gradient 6.3 mmHg PV Mean Velocity 81.5 cm/s PV Mean Gradient 3.0 mmHg PV Velocity Time Integral 29.3 cm LV E' Lateral Velocity 12.7 cm/s Mitral E to LV E' Lateral Ratio 11.0 LV E' Septal Velocity 13.5 cm/s Mitral E to LV E' Septal Ratio 10.4
[2016-06-17 12:52] VITALS: BP 146/70
--- NOTE | 2016-06-17 13:32 | Patient Discharge Instructions ---
Discharge Instructions General Discharge Information You were seen/treated for: Infection of the right shoulder joint Special Instructions: 1. Follow-up with her primary care physician in a week upon discharge 2. Follow-up with Dr. Leon in 1 week for monitoring right shoulder joint and hip joint for evidence of infection 3. Continue physical therapy allowing full range of motion of the shoulder and hip as tolerated. 4. Complete the course of antibiotic and recommended 5. CHECK ESR and follow weekly while on antibiotics. Diet Recommended Diet: Diabetic Activity Activity Self Limited: Yes Acute Coronary Syndrome Inclusion Criteria At DC or during hospital stay patient has or had the following: ACS DIAGNOSIS No Discharge Core Measures Meds if any: Prescribed or Continued at Discharge Meds if any: NOT Prescribed or Continued at Discharge Congestive Heart Failure Inclusion Criteria At DC or during hospital stay patient has or had the following: CHF DIAGNOSIS No Discharge Core Measures Meds if any: Prescribed or Continued at Discharge Meds if any: NOT Prescribed or Continued at Discharge Cerebrovascular accident Inclusion Criteria At DC or during hospital stay patient has or had the following: CVA/TIA Diagnosis No Discharge Core Measures Meds if any: Prescribed or Continued at Discharge Meds if any: NOT Prescribed or Continued at Discharge Venous thromboembolism Inclusion Criteria VTE Diagnosis No VTE Type NONE VTE Confirmed by (Test) NONE Discharge Core Measures - Per Current guidelines, there needs to be overlap - treatment for the first 5 days of Warfarin therapy. - If discharged on Warfarin prior to 5 days of - overlap therapy, the patient will need to be - assessed for post discharge needs including - *Post discharge parental anticoagulation - *Warfarin and/or parental anticoagulation education - *Follow up date to check INR post discharge At least 5 days overlap therapy as Inpatient No Meds if any: Prescribed or Continued at Discharge Note: Overlap Therapy is Warfarin and Anticoagulant Meds if any: NOT Prescribed or Continued at Discharge
[2016-06-17 14:05] VITALS: BP 120/60
--- NOTE | 2016-06-17 14:27 | PN- Infect Dx ---
Subjective Subjective: Afebrile. She notes decreased pain in the right shoulder but is still limited in her movements. She reports no pain in the right hip. Objective Last 24 Hrs of Vital Signs/I&O Vital Signs Date Time Temp Pulse Resp B/P Pulse O2 O2 Flow FiO2 Ox Delivery Rate 06/17 1405 98.0 73 20 120/60 95 Room Air 06/17 1252 98.7 72 20 146/70 06/17 0904 72 160/70 06/17 0631 98.7 80 20 158/70 96 Room Air 06/17 0220 158/82 06/16 2335 98.8 110 20 188/88 98 Room Air 06/16 2317 90 190/90 06/16 2306 90 190/90 06/16 2146 115 200/100 06/16 1518 98.1 76 20 140/70 97 06/16 1457 Room Air 2.0L Intake & Output 06/17 1600 06/17 0800 06/17 0000 Intake Total 250 700 Output Total 600 1200 Balance -600 250 -500 Intake, IV 150 200 Intake, Oral 100 500 Output, Urine 600 1200 Physical Exam Other Physical Findings: She appears comfortable in no acute distress Lungs are clear Heart regular rhythm with a 1/6 systolic ejection murmur Extremities right shoulder swelling persists, with decreased range of motion, mildly tender to palpation; right hip incision clean, with no erythema or drainage; PICC in the left upper extremity with no inflammation at the site Results Last 24 Hours of Lab Results: Laboratory Tests 06/17 0530 Chemistry Sodium (137 - 145 mmol/L) 137 Potassium (3.5 - 5.1 mmol/L) 3.4 L Chloride (98 - 107 mmol/L) 97 L Carbon Dioxide (22 - 30 mmol/L) 28 Anion Gap (5 - 16) 12 BUN (7 - 17 mg/dL) 19 H Creatinine (0.5 - 1.0 mg/dL) 0.8 Estimated GFR (>60 ml/min) > 60 BUN/Creatinine Ratio (7 - 25 %) 23.8 Magnesium (1.6 - 2.3 mg/dL) 1.3 L Hematology CBC w Diff NO MAN DIFF REQ WBC (4.8 - 10.8 /CUMM) 8.5 RBC (4.20 - 5.40 /CUMM) 2.96 L Hgb (12.0 - 16.0 G/DL) 8.4 L Hct (37 - 47 %) 25.7 L MCV (81.0 - 99.0 FL) 86.9 MCH (27.0 - 31.0 PG) 28.5 RDW (11.5 - 14.5 %) 18.1 H Plt Count (130 - 400 /CUMM) 206 MPV (7.4 - 10.4 FL) 8.5 Gran % (42.2 - 75.2 %) 77.6 H Lymphocytes % (20.5 - 51.1 %) 10.6 L Monocytes % (1.7 - 9.3 %) 10.9 H Eosinophils % (0 - 5 %) 0.6 Basophils % (0.0 - 2.0 %) 0.3 Absolute Granulocytes (1.4 - 6.5 /CUMM) 6.6 H Absolute Lymphocytes (1.2 - 3.4 /CUMM) 0.9 L Absolute Monocytes (0.10 - 0.60 /CUMM) 0.9 H Absolute Eosinophils (0.0 - 0.7 /CUMM) 0.1 Absolute Basophils (0.0 - 0.2 /CUMM) 0 PUBS MCHC (33.0 - 37.0 G/DL) 32.8 L Last 24 Hours of Anil Results: Blood cultures 2 June 14 negative Recent Imaging Studies: Echocardiogram June 16 no vegetations reported Assessment/Plan Impression: Stable with temperatures and white blood cell count normal on Ampicillin for Group G strep sepsis presumably secondary to a right shoulder infection, status post steroid injection one week prior to admission, now 5 days status post arthroscopic irrigation and debridement of the shoulder and I&D of a "superficial wound infection" of the right hip status post right hip hemiarthroplasty one month prior to admission, with no aspiration of the hip joint performed. The possibility of a deeper infection within the right hip joint must be considered and this has been discussed with Orthopedics. Suggestion: 1. Would obtain a baseline ESR and follow weekly while on antibiotics 2. Discontinue Ampicillin 3. Begin Penicillin 4 million units IV every 4 hours to complete a four-week course of antibiotics (until July 10)
[2016-06-17] MEDS ORDERED: [UNRECOGNIZED DRUG - CODE] IV (14:40)
== END 2016-06-17 16:15 | DRG 856 ==
LOC: ERH 09:49 → ERHI 14:32 → 2NA 14:32
PROVIDERS: Emergency Medicine; Internal Medicine; ADMIT Hospitalist
PROC: 0RBJ4ZZ Excision of Right Shoulder Joint, Percutaneous Endoscopic Approach (ICD-10-PCS; principal; 2016-06-12)
PROC: 0JBL0ZZ Excision of Right Upper Leg Subcutaneous Tissue and Fascia, Open Approach (ICD-10-PCS; 2016-06-12)
DX: T81.4XXA Infection following a procedure, initial encounter (principal); A40.8 Other streptococcal sepsis; I11.0 Hypertensive heart disease with heart failure; M00.211 Other streptococcal arthritis, right shoulder; B95.4 Other streptococcus as the cause of diseases classified elsewhere; I50.22 Chronic systolic (congestive) heart failure; D62 Acute posthemorrhagic anemia; E11.9 Type 2 diabetes mellitus without complications; E78.5 Hyperlipidemia, unspecified; E04.2 Nontoxic multinodular goiter; I25.10 Atherosclerotic heart disease of native coronary artery without angina pectoris; M25.411 Effusion, right shoulder; Z79.4 Long term (current) use of insulin; M10.9 Gout, unspecified; Y84.8 Other medical procedures as the cause of abnormal reaction of the patient, or of later complication, without mention of misadventure at the time of the procedure; Z95.5 Presence of coronary angioplasty implant and graft; Z85.038 Personal history of other malignant neoplasm of large intestine
CPT/HCPCS: 2NASP; 87070; 87075; 36415; 73030-RT; 73502-RT; 81001; 82436; 86920; 87040; 87086; 87147; 93005; 93010; 93306; 96374; 96375; 96376; 97001-GP; 97003-GO; 97110-GO; 97116-GO; 97161-GP; 97530-GO; 99233; C1769; J0131; J0290; J1100; J1644; J1815; J1940; J2405; J3360; J3370; J7040; J7042; J7060; P9016

== ENCOUNTER 2016-08-25 16:29 | Emergency (ER) | payer OTHER, MEDICARE ==
[~2016-08-25 16:29] MED LIST changes: +CALCIUM 500 +1 EAC5 PO; +HUMALOG KW100 UNIT/1; +LANTUS SOL100 UNIT/1 SC; +WARFARIN SODIUM2 M1 PO; +[UNRECOGNIZED DRUG - CODE] IV
--- NOTE | 2016-08-25 16:51 | ED GENERAL ADULT ---
History of Present Illness General Chief Complaint: Laceration Procedure Stated Complaint: BIBA FOR SKIN TEAR TO L FORBES Source: patient, family Exam Limitations: no limitations Vital Signs & Intake/Output Vital Signs & Intake/Output Vital Signs Date Time Temp Pulse Resp B/P Pulse O2 O2 Flow FiO2 Ox Delivery Rate 08/25 1804 97.5 64 18 144/65 97 Room Air Room Air 08/25 1639 97.4 68 20 158/68 100 Room Air Allergies Coded Allergies: tramadol (HALLUCINATIONS 08/25/16) hydromorphone (From DILAUDID) (hallucinations 05/10/16) morphine (hallucinations 05/10/16) oxycodone (hallucinations 05/10/16) Reconcile Medications Allopurinol 100 MG TABLET 2 TAB PO QAM GOUT (Reported) Aspirin (Ecotrin*) 81 MG TABLET.DR 1 TAB PO QAM HEART/BLOOD (Reported) Atorvastatin Calcium 40 MG TABLET 1 TAB PO QAM CHOLESTEROL (Reported) Biotin 10,000 MCG CAPSULE 1 CAP PO 1700 SUPPLEMENT (Reported) Calcium Carbonate/Vitamin D3 (Calcium 500 + D Tablet) 500 MG-400 TABLET 1 TAB PO DAILY SUPPLEMENT (Reported) Cholecalciferol (Vitamin D3) (Vitamin D3) 2,000 UNIT TABLET 1 CAP PO 1700 SUPPLEMENT (Reported) Cyanocobalamin (Vitamin B-12) 1,000 MCG TABLET 1 TAB PO QAM SUPPLEMENT ( Reported) Diclofenac Sodium (Voltaren) 1 % GEL..GRAM. 4 GM TOP Q6-8H RIGHT SHOULDER PAIN (Reported) Docusate Sodium (Colace) 100 MG CAPSULE 1 CAP PO QAM STOOL SOFTENER (Reported ) Doxycycline Hyclate (Vibramycin) 100 MG CAPSULE 1 CAP PO BID WOUND Duloxetine HCl 30 MG CAPSULE.DR 1 CAP PO QPM ANXIETY/NERVE PAIN (Reported) Ferrous Sulfate 325 MG TABLET 1 TAB PO TID SUPPLEMENT (Reported) Furosemide (Lasix) 80 MG TABLET 1 TAB PO QAM DIURETIC (Reported) Insulin Glargine,Hum.rec.anlog (Lantus Solostar) 100 UNIT/ML (3 ML) INSULN.PEN 15 UNIT SC QHS DIABETES (Reported) Labetalol HCl 300 MG TABLET 1 TAB PO BID BP (Reported) Linagliptin (Tradjenta) 5 MG TABLET 1 TAB PO 1700 DIABETES (Reported) Lisinopril 10 MG TABLET 1 TAB PO BID HYPERTENSION (Reported) Magnesium Oxide 400 MG TABLET 1 TAB PO QAM SUPPLEMENT (Reported) Methimazole 5 MG TABLET 0.5 TAB PO AD THYROID (Reported) Methimazole 5 MG TABLET 1 TAB PO Monday THYROID (Reported) Multivitamin (Daily Multiple Vitamin) 1 EACH TABLET 1 TAB PO 1700 SUPPLEMENT (Reported) Omeprazole 20 MG CAPSULE.DR 1 CAP PO DAILY AC GI (Reported) Prednisone 2.5 MG TABLET 1 TAB PO QAM GOUT (Reported) Sertraline HCl 25 MG TABLET 0.5-1 TAB PO AD MENTAL HEALTH (Reported) Teriparatide (Forteo) 20 MCG/DOSE (600 MCG/2.4 ML) PEN.INJCTR 20 MCG SC DAILY OSTEOPOROSIS (Reported) Tylenol With Codeine (Tylenol With Codeine #3 Tablet) 300 MG-30 MG TABLET 1 TAB PO Q4H PRN PAIN (Reported) Triage Note: 81 YEAR OLD FEMALE BIBA REPORTS 3-4 INCH SKIN TEAR TO LEFT FORBES THAT OCCURED TODAY WHILE CLIMBING THE STAIRS. PT ARRIVES TO ED ALERT AND ORIENTED X3, CLEAR SPEECH. WOUND IS COVERED FROM HOME DRESSING AT THIS TIME, BLEEDING CONTROLLED. Triage Nurses Notes Reviewed? yes Onset: Abrupt Duration: hour(s): Timing: recent history HPI: 08/25/16 81-year-old female presents to the emergency department with a 3 inch skin tear to the left lower extremity. The onset of symptoms was abrupt, the duration was just today, the severity was significant as her symptoms required her to come to the emergency department for care. She denies other injuries. Injury occurred when she was walking up some steps. She does have mild bilateral lower extremity dependent edema. No bony injury. No other injuries. The wound was irrigated with saline and cleaned with peroxide. She declined any attempt at suturing. Tissue glue glue and a Tegaderm dressing was applied. Hemostasis was obtained. Past History Travel History Traveled to [place] past 21 day No Medical History Any Pertinent Medical History? 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 Relation not specified for: Cancer of small intestine FH: diabetes mellitus FH: hypertension FH: pancreatic cancer Hx Contributory? No Review of Systems Review of Systems Constitutional: Denies: fever. EENTM: Reports: no symptoms. Respiratory: Reports: no symptoms. Cardiovascular: Reports: no symptoms. GI: Reports: no symptoms. Genitourinary: Reports: no symptoms. Musculoskeletal: Reports: see HPI. Skin: Reports: see HPI. Neurological/Psychological: Reports: no symptoms. Hematologic/Endocrine: Reports: bleeding. Physical Exam Physical Exam General Appearance: well developed/nourished, alert, awake, anxious, mild distress Head: atraumatic, normal appearance Eyes: Bilateral: normal appearance, PERRL, EOMI. Ears, Nose, Throat: normal pharynx, hearing grossly normal Neck: normal inspection, full range of motion Respiratory: no respiratory distress Cardiovascular: regular rate/rhythm Peripheral Pulses: 4+ dorsalis pedis (L) Back: normal range of motion Extremities: pedal edema Neurologic/Psych: no motor/sensory deficits, awake, alert, oriented x 3 Skin: warm/dry, see below Comments: The patient has a 2-1/2 inch V-shaped skin tear to the left lower leg. There is no active bleeding. Procedure The wound was irrigated vigorously, Dermabond was applied. Good hemostasis was achieved Tegaderm dressing was applied. She will follow-up in the emergency department in 48 hours for wound check. Doxycycline was given. Core Measures ACS in differential dx? No CVA/TIA Diagnosis: No Severe Sepsis Present: No Septic Shock Present: No Progress Differential Diagnoses I considered the following diagnoses in my evaluation of the patient: [ Laceration, avulsion, skin tear,] Plan of Care: Follow-up in ED in 48 hours. Elevate left lower extremity. Doxycycline as instructed. Initial ED EKG: none Departure Departure Disposition: HOME OR SELF CARE Condition: Stable Clinical Impression Primary Impression: Skin tear Referrals: ONIEL LEDESMA,CIARAN Perera (PCP/Family) Departure Forms: Customer Survey General Discharge Information Prescriptions: Current Visit Scripts Doxycycline Hyclate (Vibramycin) 1 CAP PO BID #14 CAP Comments Last tetanus shot 2014. Critical Care Note Critical Care Note Critical Care Time: non-applicable
[2016-08-25] MEDS ORDERED: FORTEO2.4 ML SC (17:07)
[2016-08-25] MEDS ORDERED: DULOXETINE HCL30 MG PO (17:08)
[2016-08-25] MEDS ORDERED: LASIX80 M1 PO (17:10)
[2016-08-25] MEDS ORDERED: METHIMAZOLE5 M1 PO (17:13)
[2016-08-25] MEDS ORDERED: COLACE100 M1 PO (17:16)
[2016-08-25] MEDS ORDERED: MAGNESIUM OXID400 M1 PO (17:16)
[2016-08-25] MEDS ORDERED: CALCIUM + D SO1 EACH PO (17:17)
[2016-08-25] MEDS ORDERED: OMEPRAZOLE20 M2 PO (17:18)
[2016-08-25] MEDS ORDERED: VOLTAREN100 GM TOP (17:19)
[2016-08-25] MEDS ORDERED: SERTRALINE HCL25 MG PO (17:21)
[2016-08-25] MEDS ORDERED: TYLENOL WITH C1 EACH PO (17:22)
[2016-08-25] MEDS ORDERED: VIBRAMYCIN100 MG PO (17:57)
[2016-08-25 18:04] VITALS: BP 144/65
== END 2016-08-25 18:04 ==
LOC: ERH 16:29
DX: S81.812A Laceration without foreign body, left lower leg, initial encounter (principal); X58.XXXA Exposure to other specified factors, initial encounter; Y92.9 Unspecified place or not applicable; Y93.9 Activity, unspecified

== ENCOUNTER 2016-09-14 05:53 | Emergency (ER) | payer OTHER, MEDICARE ==
[~2016-09-14] VITALS: Ht 157.5 cm; Wt 70.3 kg
[~2016-09-14 05:53] MED LIST changes: +CALCIUM + D SO1 EACH PO; +COLACE100 M1 PO; +DULOXETINE HCL30 MG PO; +FORTEO2.4 ML SC; +LASIX80 M1 PO; +MAGNESIUM OXID400 M1 PO; +OMEPRAZOLE20 M2 PO; +SERTRALINE HCL25 MG PO; +VIBRAMYCIN100 MG PO; +VOLTAREN100 GM TOP
--- NOTE | 2016-09-14 06:08 | ED MVC/FALL/TRAUMA COMPLAINT ---
History of Present Illness General Chief Complaint: Fall Stated Complaint: BIBA S/P FALL Source: patient, family, old records, EMS Exam Limitations: no limitations Vital Signs & Intake/Output Vital Signs & Intake/Output Vital Signs Date Time Temp Pulse Resp B/P Pulse O2 O2 Flow FiO2 Ox Delivery Rate 09/14 0630 98 Room Air 09/14 0604 98.6 82 18 128/82 98 Room Air Allergies Coded Allergies: tramadol (HALLUCINATIONS 09/14/16) hydromorphone (From DILAUDID) (hallucinations 09/14/16) morphine (hallucinations 09/14/16) oxycodone (hallucinations 09/14/16) Reconcile Medications Allopurinol 100 MG TABLET 2 TAB PO QAM GOUT (Reported) Aspirin (Ecotrin*) 81 MG TABLET.DR 1 TAB PO QAM HEART/BLOOD (Reported) Atorvastatin Calcium 40 MG TABLET 1 TAB PO QAM CHOLESTEROL (Reported) Biotin 10,000 MCG CAPSULE 1 CAP PO 1700 SUPPLEMENT (Reported) Calcium Carbonate/Vitamin D3 (Calcium 500 + D Tablet) 500 MG-400 TABLET 1 TAB PO DAILY SUPPLEMENT (Reported) Cholecalciferol (Vitamin D3) (Vitamin D3) 2,000 UNIT TABLET 1 CAP PO 1700 SUPPLEMENT (Reported) Cyanocobalamin (Vitamin B-12) 1,000 MCG TABLET 1 TAB PO QAM SUPPLEMENT ( Reported) Docusate Sodium (Colace) 100 MG CAPSULE 1 CAP PO QAM STOOL SOFTENER (Reported ) Furosemide (Lasix) 80 MG TABLET 1 TAB PO QAM DIURETIC (Reported) Insulin Glargine,Hum.rec.anlog (Lantus Solostar) 100 UNIT/ML (3 ML) INSULN.PEN 15 UNIT SC QHS DIABETES (Reported) Labetalol HCl 300 MG TABLET 1 TAB PO BID BP (Reported) Linagliptin (Tradjenta) 5 MG TABLET 1 TAB PO 1700 DIABETES (Reported) Lisinopril 10 MG TABLET 1 TAB PO BID HYPERTENSION (Reported) Magnesium Oxide 400 MG TABLET 1 TAB PO QAM SUPPLEMENT (Reported) Methimazole 5 MG TABLET 0.5 TAB PO AD THYROID (Reported) Multivitamin (Daily Multiple Vitamin) 1 EACH TABLET 1 TAB PO 1700 SUPPLEMENT (Reported) Omeprazole 20 MG CAPSULE.DR 1 CAP PO DAILY AC GI (Reported) Teriparatide (Forteo) 20 MCG/DOSE (600 MCG/2.4 ML) PEN.INJCTR 20 MCG SC DAILY OSTEOPOROSIS (Reported) Tylenol With Codeine (Tylenol With Codeine #3 Tablet) 300 MG-30 MG TABLET 1 TAB PO Q4H PRN PAIN (Reported) Triage Nurses Notes Reviewed? yes HPI: Patient got up to go the bathroom and as she was transferring to the commode the commode tipped over and fell and she fell with it. Patient hit her head on the floor. There was no loss consciousness. Bleeding was controlled prior to arrival. Patient denies any headache or blurry vision. There is no neck pain. Patient is complaining of a skin tear to her left upper extremity. Patient denies any pain associated with that. Patient denies any chest pain or palpitations. Patient denies any near syncopal episodes. Past History Travel History Traveled to [place] past 21 day No Medical History Any Pertinent Medical History? 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 History of MRSA: No History of VRE: No History of CDIFF: No Tetanus Vaccine: 04/24/15 Surgical History Surgical History: cholecystectomy, colon resection (right hemicolectomy), hip replacement (right hemiarthroplasty), hysterectomy (partial), spinal fusion, L BREAST NIPPLE REMOVED L HIP ORIF uterine prolapse surgery status post left hip ORIF Psychosocial History Who do you live with Family Services at Home None What is your primary language Luxembourgish Tobacco Use: Quit >30 days ago ETOH Use: denies use Illicit Drug Use: denies illicit drug use Family History Family History, If Any: BROTHER (Pancreatic cancer). Relation not specified for: Cancer of small intestine FH: diabetes mellitus FH: hypertension FH: pancreatic cancer Hx Contributory? No Review of Systems Review of Systems Constitutional: Reports: no symptoms. Eyes: Reports: no symptoms. Ears, Nose, Throat, Mouth: Reports: no symptoms. Respiratory: Reports: no symptoms. Cardiovascular: Reports: no symptoms. Gastrointestinal/Abdominal: Reports: no symptoms. Genitourinary: Reports: no symptoms. Musculoskeletal: Reports: see HPI. Skin: Reports: no symptoms. Neurological/Psychological: Reports: no symptoms. All Other Systems: Reviewed and Negative Physical Exam Physical Exam General Appearance: well developed/nourished, alert, awake, anxious, mild distress Head: 2 CM VERY SUPERFICIAL LACERATION TO LEFT TEMPORAL AREA. dOES NOT REQUIRE SUTURE OR STAPLE. Eyes: Bilateral: PERRL, EOMI. Ears, Nose, Throat, Mouth: hearing grossly normal, moist mucous membrane Neck: normal inspection, supple, full range of motion, no midline tenderness Respiratory: normal breath sounds, chest non-tender, no respiratory distress, lungs clear Cardiovascular: regular rate/rhythm, normal peripheral pulses Gastrointestinal: normal bowel sounds, soft, non-tender, no organomegaly Back: normal inspection, normal range of motion Extremities: normal range of motion, SKIN TEAR TO THE LEFT UPPER EXTREMITY Neurologic/Psych: no motor/sensory deficits, awake, alert, oriented x 3, normal mood/affect Skin: normal color, warm/dry Core Measures ACS in differential dx? No Severe Sepsis Present: No Septic Shock Present: No Progress Differential Diagnosis: C/T/L spine injury, ICH Plan of Care: Orders Procedure Date/time Status CT HEAD WO IV CONTRAST 09/[address] CERV SPINE WO IV CONTRAST 09/15 603 Active Diagnostic Imaging: Viewed by Me: CT Scan. Discussed w/RAD: CT Scan. Radiology Impression: PATIENT: XENA OVALLE PRESENT AGE: 81 PATIENT ACCOUNT NO: [id number] : 34 LOCATION: [facility] ORDERING PHYSICIAN: NOHELIA CALLAHAN MD SERVICE DATE: 09/14/16 EXAM TYPE: CAT - CT CERV SPINE WO IV CONTRAST; CT HEAD WO IV CONTRAST EXAMINATIONS: CT HEAD WITHOUT CONTRAST AND CT CERVICAL SPINE WITHOUT CONTRAST CLINICAL INFORMATION: Pain after fall. COMPARISON: Chest CT from 09/07/2016. Cervical spine radiograph from 03/29/2016. TECHNIQUE: Contiguous helical images of the brain were obtained without IV contrast. Contiguous helical images of the cervical spine were obtained without IV contrast. Multiplanar reconstructions were performed. DLP: 1734 mGy-cm. FINDINGS: There are no pathologic extra-axial fluid collections. The lateral, third, fourth ventricles are prominent, but age- appropriate and concordant with the appearance of the sulci. There is no evidence for acute intraparenchymal hemorrhage or infarct. And there is periventricular low-attenuation present indicative of small vessel disease. There is neither mass nor mass effect. There is no shift of midline structures. The paranasal sinuses and mastoid air cells are clear. There are no osseous lesions. There is multilevel disc height loss, particularly at C3/C4, C4/C5, C5/ C6 and C6/C7 with anterior osteophyte formation. There is anterior displacement of C3 in relation to C4 without a discernible fracture. In addition, there is anterior displacement of C4 in relation to C5. Remaining cervical vertebra are in normal alignment. There is no prevertebral soft tissue swelling. As demonstrated on the recent chest CT, there is a stable enlarged right thyroid lobe. There is no cervical lymphadenopathy. The visualized lung apices are clear. IMPRESSION: No evidence for acute intracranial injury. Age-appropriate appearance of the brain. No evidence for acute injury to the cervical spine. Advanced degenerative change to the cervical spine. Pseudolisthesis within the mid cervical spine unchanged from prior exam. Stable enlarged right thyroid lobe. DICTATED BY: EARNESTINE EPPS MD DATE/TIME DICTATED:09/14/16654 MANAGER ACCESS:ALLEN DATE/TIME TRANSCRIBED:09/14/16654 CONFIDENTIAL, DO NOT COPY WITHOUT APPROPRIATE AUTHORIZATION. <Electronically signed in Other Vendor System> SIGNED BY: EARNESTINE EPPS MD 09/14/16 0707 Comments: Patient is requesting her Tylenol with Codeine. Patient states she takes it every day and she did not take prior to arrival. Departure Departure Disposition: HOME OR SELF CARE Condition: Stable Clinical Impression Primary Impression: Head injury Secondary Impressions: Skin tear of elbow without complication Referrals: CIARAN ENGLE MD (PCP/Family) Additional Instructions: RETURN IF SYMPTOMS WORSEN OR FOR ANY CONCERNS Departure Forms: Customer Survey General Discharge Information
--- NOTE | 2016-09-14 07:07 | CT SCAN REPORT ---
EXAMINATIONS: CT HEAD WITHOUT CONTRAST AND CT CERVICAL SPINE WITHOUT CONTRAST CLINICAL INFORMATION: Pain after fall. COMPARISON: Chest CT from 09/07/2016. Cervical spine radiograph from 03/29/2016. TECHNIQUE: Contiguous helical images of the brain were obtained without IV contrast. Contiguous helical images of the cervical spine were obtained without IV contrast. Multiplanar reconstructions were performed. DLP: 1734 mGy-cm. FINDINGS: There are no pathologic extra-axial fluid collections. The lateral, third, fourth ventricles are prominent, but age-appropriate and concordant with the appearance of the sulci. There is no evidence for acute intraparenchymal hemorrhage or infarct. And there is periventricular low-attenuation present indicative of small vessel disease. There is neither mass nor mass effect. There is no shift of midline structures. The paranasal sinuses and mastoid air cells are clear. There are no osseous lesions. There is multilevel disc height loss, particularly at C3/C4, C4/C5, C5/C6 and C6/C7 with anterior osteophyte formation. There is anterior displacement of C3 in relation to C4 without a discernible fracture. In addition, there is anterior displacement of C4 in relation to C5. Remaining cervical vertebra are in normal alignment. There is no prevertebral soft tissue swelling. As demonstrated on the recent chest CT, there is a stable enlarged right thyroid lobe. There is no cervical lymphadenopathy. The visualized lung apices are clear. IMPRESSION: No evidence for acute intracranial injury. Age-appropriate appearance of the brain. No evidence for acute injury to the cervical spine. Advanced degenerative change to the cervical spine. Pseudolisthesis within the mid cervical spine unchanged from prior exam. Stable enlarged right thyroid lobe.
[2016-09-14 07:15] VITALS: BP 120/80
== END 2016-09-14 07:25 ==
LOC: ERH 05:53
DX: S09.90XA Unspecified injury of head, initial encounter (principal); S51.012A Laceration without foreign body of left elbow, initial encounter; W17.89XA Other fall from one level to another, initial encounter; Y93.89 Activity, other specified; Y92.9 Unspecified place or not applicable

== ENCOUNTER 2016-09-17 23:43 | Emergency (ER) | payer OTHER, MEDICARE ==
[~2016-09-17] VITALS: Ht 157.5 cm; Wt 74.4 kg
--- NOTE | 2016-09-17 23:52 | ED NECK/BACK PAIN COMPLAINT ---
History of Present Illness General Chief Complaint: Low Back Pain/Injury Stated Complaint: " PER DAUGHTER MOM CAN'T MOVE, LOWER BACK PAIN" Allergies Coded Allergies: tramadol (HALLUCINATIONS 09/14/16) hydromorphone (From DILAUDID) (hallucinations 09/14/16) morphine (hallucinations 09/14/16) oxycodone (hallucinations 09/14/16) Reconcile Medications Allopurinol 100 MG TABLET 2 TAB PO QAM GOUT (Reported) Aspirin (Ecotrin*) 81 MG TABLET.DR 1 TAB PO QAM HEART/BLOOD (Reported) Atorvastatin Calcium 40 MG TABLET 1 TAB PO QAM CHOLESTEROL (Reported) Biotin 10,000 MCG CAPSULE 1 CAP PO 1700 SUPPLEMENT (Reported) Calcium Carbonate/Vitamin D3 (Calcium 500 + D Tablet) 500 MG-400 TABLET 1 TAB PO DAILY SUPPLEMENT (Reported) Cholecalciferol (Vitamin D3) (Vitamin D3) 2,000 UNIT TABLET 1 CAP PO 1700 SUPPLEMENT (Reported) Cyanocobalamin (Vitamin B-12) 1,000 MCG TABLET 1 TAB PO QAM SUPPLEMENT ( Reported) Docusate Sodium (Colace) 100 MG CAPSULE 1 CAP PO QAM STOOL SOFTENER (Reported ) Furosemide (Lasix) 80 MG TABLET 1 TAB PO QAM DIURETIC (Reported) Insulin Glargine,Hum.rec.anlog (Lantus Solostar) 100 UNIT/ML (3 ML) INSULN.PEN 15 UNIT SC QHS DIABETES (Reported) Labetalol HCl 300 MG TABLET 1 TAB PO BID BP (Reported) Linagliptin (Tradjenta) 5 MG TABLET 1 TAB PO 1700 DIABETES (Reported) Lisinopril 10 MG TABLET 1 TAB PO BID HYPERTENSION (Reported) Magnesium Oxide 400 MG TABLET 1 TAB PO QAM SUPPLEMENT (Reported) Methimazole 5 MG TABLET 0.5 TAB PO AD THYROID (Reported) Multivitamin (Daily Multiple Vitamin) 1 EACH TABLET 1 TAB PO 1700 SUPPLEMENT (Reported) Omeprazole 20 MG CAPSULE.DR 1 CAP PO DAILY AC GI (Reported) Teriparatide (Forteo) 20 MCG/DOSE (600 MCG/2.4 ML) PEN.INJCTR 20 MCG SC DAILY OSTEOPOROSIS (Reported) Tylenol With Codeine (Tylenol With Codeine #3 Tablet) 300 MG-30 MG TABLET 1 TAB PO Q4H PRN PAIN (Reported) (SALOMÓN LEDESMA,LUCIANA) Past History Travel History Traveled to [place] past 21 day No Medical History Neurological: NONE EENT: cataracts Cardiovascular: aortic aneurysm, CAD (status post stent), CHF, hypertension, hyperlipidemia, AORTIC ANEURYSM Respiratory: lung nodules Gastrointestinal: GERD, HAS BLEED- ?FROM WHERE Hepatic: cholelithiasis Renal: ACUTE KIDNEY FAILURE recurrent urinary tract infection Musculoskeletal: chronic back pain, gout, osteoarthritis Psychiatric: anxiety Endocrine: diabetes, hyperthyroidism, right thyroid goiter Blood Disorders: anemia Cancer(s): colon/rectal cancer 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 Relation not specified for: Cancer of small intestine FH: diabetes mellitus FH: hypertension FH: pancreatic cancer (LUCIANA LORENZANA MD) Departure Departure Condition: Stable Referrals: CIARAN ENGLE MD (PCP/Family) Departure Forms: Customer Survey General Discharge Information (LUCIANA LORENZANA MD)
--- NOTE | 2016-09-18 | ED GENERAL ADULT ---
History of Present Illness General Chief Complaint: Low Back Pain/Injury Stated Complaint: " PER DAUGHTER MOM CAN'T MOVE, LOWER BACK PAIN" Source: patient Exam Limitations: no limitations Vital Signs & Intake/Output Vital Signs & Intake/Output Vital Signs Date Time Temp Pulse Resp B/P Pulse O2 O2 Flow FiO2 Ox Delivery Rate 09/18 0332 98.0 84 18 137/83 98 Room Air 09/18 0025 95 Room Air 09/18 0003 98.0 84 20 180/86 98 Room Air Allergies Coded Allergies: tramadol (HALLUCINATIONS 09/14/16) hydromorphone (From DILAUDID) (hallucinations 09/14/16) morphine (hallucinations 09/14/16) oxycodone (hallucinations 09/14/16) Reconcile Medications Allopurinol 100 MG TABLET 2 TAB PO QAM GOUT (Reported) Aspirin (Ecotrin*) 81 MG TABLET.DR 1 TAB PO QAM HEART/BLOOD (Reported) Atorvastatin Calcium 40 MG TABLET 1 TAB PO QAM CHOLESTEROL (Reported) Biotin 10,000 MCG CAPSULE 1 CAP PO 1700 SUPPLEMENT (Reported) Calcium Carbonate/Vitamin D3 (Calcium 500 + D Tablet) 500 MG-400 TABLET 1 TAB PO DAILY SUPPLEMENT (Reported) Cholecalciferol (Vitamin D3) (Vitamin D3) 2,000 UNIT TABLET 1 CAP PO 1700 SUPPLEMENT (Reported) Cyanocobalamin (Vitamin B-12) 1,000 MCG TABLET 1 TAB PO QAM SUPPLEMENT ( Reported) Docusate Sodium (Colace) 100 MG CAPSULE 1 CAP PO QAM STOOL SOFTENER (Reported ) Furosemide (Lasix) 80 MG TABLET 1 TAB PO QAM DIURETIC (Reported) Insulin Glargine,Hum.rec.anlog (Lantus Solostar) 100 UNIT/ML (3 ML) INSULN.PEN 15 UNIT SC QHS DIABETES (Reported) Labetalol HCl 300 MG TABLET 1 TAB PO BID BP (Reported) Linagliptin (Tradjenta) 5 MG TABLET 1 TAB PO 1700 DIABETES (Reported) Lisinopril 10 MG TABLET 1 TAB PO BID HYPERTENSION (Reported) Magnesium Oxide 400 MG TABLET 1 TAB PO QAM SUPPLEMENT (Reported) Methimazole 5 MG TABLET 0.5 TAB PO AD THYROID (Reported) Multivitamin (Daily Multiple Vitamin) 1 EACH TABLET 1 TAB PO 1700 SUPPLEMENT (Reported) Omeprazole 20 MG CAPSULE.DR 1 CAP PO DAILY AC GI (Reported) Teriparatide (Forteo) 20 MCG/DOSE (600 MCG/2.4 ML) PEN.INJCTR 20 MCG SC DAILY OSTEOPOROSIS (Reported) Tylenol With Codeine (Tylenol With Codeine #3 Tablet) 300 MG-30 MG TABLET 1 TAB PO Q4H PRN PAIN (Reported) Triage Nurses Notes Reviewed? yes Onset: Abrupt Duration: day(s): Timing: recent history HPI: 09/18/16 12 AM This is an 81-year-old female who presents to the emergency department for severe right sided hip and low back pain. According to the daughter the patient had fallen on Monday and she hit her head. A CT scan of the head was done which was negative for intracranial bleed; now she's had ongoing severe right hip pain. She does have a past surgical history for a dustin placed in the left femur and a partial right hip replacement. She also has a "cage" in her lumbar spine according to the daughter. She denies headache or neck pain at this time but does admit to generalized pain. She hallucinates from almost any narcotic but can take Tylenol with codeine. The onset of the symptoms was abrupt, the duration has been several days, the severity is significant; as her symptoms required to come to the emergency department for care. She has associated right hip pain and low back pain (CAYDEN RAMIREZ DO) Past History Travel History Traveled to [place] past 21 day No Medical History Any Pertinent Medical History? see below for history Neurological: NONE EENT: cataracts Cardiovascular: aortic aneurysm, CAD (status post stent), CHF, hypertension, hyperlipidemia, AORTIC ANEURYSM Respiratory: lung nodules Gastrointestinal: GERD, HAS BLEED- ?FROM WHERE Hepatic: cholelithiasis Renal: ACUTE KIDNEY FAILURE recurrent urinary tract infection Musculoskeletal: chronic back pain, gout, osteoarthritis Psychiatric: anxiety Endocrine: diabetes, hyperthyroidism, right thyroid goiter Blood Disorders: anemia Cancer(s): colon/rectal cancer [employer]/Reproductive: miscarriage History of MRSA: No History of VRE: No History of CDIFF: No Tetanus Vaccine: 04/24/15 Surgical History Surgical History: cholecystectomy, colon resection (right hemicolectomy), hip replacement (right hemiarthroplasty), hysterectomy (partial), spinal fusion, L BREAST NIPPLE REMOVED L HIP ORIF uterine prolapse surgery status post left hip ORIF Psychosocial History Who do you live with Family Services at Home None What is your primary language Somali Family History Family History, If Any: BROTHER (Pancreatic cancer). Relation not specified for: Cancer of small intestine FH: diabetes mellitus FH: hypertension FH: pancreatic cancer Hx Contributory? No (CAYDEN RAMIREZ DO) Review of Systems Review of Systems Constitutional: Denies: fever. EENTM: Denies: visual changes. Respiratory: Reports: no symptoms. Cardiovascular: Reports: no symptoms. GI: Denies: abdominal pain. Genitourinary: Reports: no symptoms. Musculoskeletal: Reports: back pain, joint pain. Skin: Reports: see HPI. Neurological/Psychological: Denies: headache. Hematologic/Endocrine: Reports: no symptoms. (CAYDEN RAMIREZ DO) Physical Exam Physical Exam General Appearance: alert, awake, anxious, moderate distress Head: normal appearance, glued lac left scalp Eyes: Bilateral: normal appearance, PERRL, EOMI. Ears, Nose, Throat: normal ENT inspection Neck: limited range of motion, no midline tenderness Respiratory: decreased breath sounds Cardiovascular: regular rate/rhythm Peripheral Pulses: 4+ radial (R), 4+ radial (L) Gastrointestinal: non-tender Back: vertebral tenderness, decreased range of motion Extremities: tenderness (right hip) Neurologic/Psych: no motor/sensory deficits, awake, alert, oriented x 3 Skin: intact, normal color, warm/dry Core Measures ACS in differential dx? No CVA/TIA Diagnosis: No Severe Sepsis Present: No Septic Shock Present: No (CAYDEN RAMIREZ DO) Progress Differential Diagnoses I considered the following diagnoses in my evaluation of the patient: [Fracture, arthritis, contusion, bursitis, gait instability] Plan of Care: Orders Procedure Date/time Status Saline Lock 09/18 0005 Active COMPREHENSIVE METABOLIC PANEL 09/18 0005 Complete CBC WITHOUT DIFFERENTIAL 09/18 0005 Complete Laboratory Tests 09/18/16 0029: Anion Gap 14, Estimated GFR 29 L, BUN/Creatinine Ratio 22.4, Glucose 142 H, Calcium 9.5, Total Bilirubin 0.4, AST 23, ALT 34, Alkaline Phosphatase 126, Total Protein 6.2 L, Albumin 3.3 L, Globulin 2.9, Albumin/Globulin Ratio 1.1, CBC w Diff NO MAN DIFF REQ, RBC 3.14 L, MCV 88.0, MCH 29.3, RDW 16.7 H, MPV 7.9, Gran % 71.8, Lymphocytes % 15.7 L, Monocytes % 10.9 H, Eosinophils % 1.4, Basophils % 0.2, Absolute Granulocytes 6.6 H, Absolute Lymphocytes 1.4, Absolute Monocytes 1.0 H, Absolute Eosinophils 0.1, Absolute Basophils 0, PUBS MCHC 33.3 3:[address] RESULTS DISCUSSED AT [facility]. PATIENT WANTS TO GO HOME AND SEE HOW HER INJECTION GOES. WILL GO HOME WITH DAUGHTER. PATIENT IS ALREADY PLUGGED INTO PHYSICAL THERAPY. (SALOMÓN LEDESMA,LUCIANA) Initial ED EKG: none (CAYDEN RAMIREZ DO) Diagnostic Imaging: Viewed by Me: CT Scan. Discussed w/RAD: CT Scan. Radiology Impression: PATIENT: XENA OVALLE PRESENT AGE: 81 PATIENT ACCOUNT NO: [id number] : 34 LOCATION: [facility] ORDERING PHYSICIAN: CAYDEN RAMIREZ DO SERVICE DATE: 09/18/16 EXAM TYPE: CAT - CT LUMB SPINE WO IV CONTRAST; CT PELVIS WO IV CONTRAST EXAMINATION: CT SCAN OF THE PELVIS AND LUMBAR SPINE CLINICAL INFORMATION: Back pain. COMPARISON: CT scan of the pelvis 05/10/2016. Lumbar spine radiographs 2014. CT chest abdomen and pelvis 01/28/2015. TECHNIQUE: Saw Edge Fuser Circular images were obtained. CT acquisition of the pelvis and lumbar spine were obtained without intravenous administration of contrast. Data was reformatted into multiplanar images at the acquisition workstation. DLP: 1286.26 mGy-cm. FINDINGS: Lumbar spine: There are chronic postoperative changes of decompressive laminectomies at L4 and L5 with a posterior fusion construct comprised of transpedicular screws transfixed by vertical fusion rods extending from L4 to L5. There is grade 1 anterolisthesis of L3 on L4 that appears to be related to advanced facet degenerative changes at this level. Vertebral alignment is otherwise grossly maintained. There is chronic appearing loss of vertebral body height at L1 with impaction of the lower endplate and anterior wedging with approximately 50% vertebral body height loss anteriorly. There is a large chronic appearing upper L2 endplate disc herniation. There is loss of intervertebral disc height with associated sclerotic degenerative endplate changes at multiple levels that appear to be most advanced at the level of L3-L4. Chronic appearing compression fractures of T7 and T8 are partially included within the [id number] this examination. At L1-L2 there is a broad central disc osteophyte complex causes ventral flattening of the thecal sac. There is moderate to severe bilateral neuroforaminal encroachment. The canal is not well assessed on this examination but it is suspected that there is at least mild canal stenosis. At L2-L3 there is a broad central disc osteophyte complex that causes ventral flattening of the thecal sac. There is mild bilateral neuroforaminal encroachment. The canal is not well assessed on this examination but it is suspected that there is at least mild canal stenosis. At L3-L4 there is a broad central disc osteophyte complex that causes ventral flattening of the thecal sac and buckling of the ligamenta flava causing dorsolateral indentation of the thecal sac. There is severe left and moderate right neuroforaminal encroachment. The canal is not well assessed on this examination but is suspected that there is at least moderate canal stenosis. At L4-L5 the canal is decompressed and there is no neuroforaminal encroachment. At L5-S1 the canal is decompressed and there appears to be interbody osseous union. Mild symmetric neuroforaminal encroachment. Limited visualization of the retroperitoneal structures reveals a hyperdense cyst at the upper pole of the right kidney and a complex partially calcified lesion involving the lower pole of the right kidney. There is symmetric atrophy of the psoas and paraspinal muscles. Pelvis: There are chronic changes of a right hip hemiarthroplasty and an intramedullary dustin repair of a left femoral neck fracture. Hardware appears grossly intact and there is no evidence to suggest loosening or infection. There is no acute fracture or dislocation. Specifically the pelvic ring is intact. Superior and inferior pubic rami are intact. Sacral ala are intact. Limited visualization of the intra-abdominal structures reveals numerous scattered diverticula within the sigmoid colon. Calcified atheromatous plaque involves the abdominal aorta and iliac vessels. The urinary bladder is unremarkable. Chronic changes of a hysterectomy are noted. There is no worrisome adnexal mass. IMPRESSION: There are chronic changes of a decompressive laminectomy and a posterior spinal hardware fusion that extends from L4 to L5. 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 There is at least mild canal stenosis at the levels of L1-L2 and L2-L3. At least moderate canal stenosis at L3-L4. There is a chronic wedge compression deformity of the L1 vertebral body and a chronic compression deformities of the T7 and T8 vertebra are also partially included within the [id number] of this examination. There are varying degrees of neuroforaminal encroachment as described above. No evidence of acute pelvic fracture. DICTATED BY: MIHCELE PANIAGUA MD DATE/TIME DICTATED:09/18/16136 MULE PACKER:ALLEN DATE/ TIME TRANSCRIBED:09/18/16136 CONFIDENTIAL, DO NOT COPY WITHOUT APPROPRIATE AUTHORIZATION. <Electronically signed in Other Vendor System> SIGNED BY: MICHELE PANIAGUA MD 09/18/16 0155 (LUCIANA MONROY MD) Departure Departure Condition: Stable Clinical Impression Primary Impression: Fall Referrals: ONIEL LEDESMA,CIARAN Perera (PCP/Family) Departure Forms: Customer Survey General Discharge Information Comments 09/18/16 12:36 am The patient was signed out to Dr. Monroy. Follow the CT scan labs. (CAYDEN RAMIREZ DO) Departure Time of Disposition: 318 Disposition: HOME OR SELF CARE Additional Instructions: TAKE TYLENOL #3 NEEDED GO FOR YOUR INJECTION ON MONDAY AND FOLLOW UP WITH PT ON MONDAY MONITOR THE LEGS FOR REDNESS THAT STARTED TODAY RETURN IF WORSE. (LUCIANA MONROY MD) Critical Care Note Critical Care Note Critical Care Time: non-applicable (CAYDEN RAMIREZ DO)
[2016-09-18 00:37] LABS: ABSOLUTE BASOPHIL COUNT 0 /CUMM (0.0-0.2); ABSOLUTE EOSINOPHIL COUNT 0.1 /CUMM (0.0-0.7); ABSOLUTE GRANULOCYTE CT 6.6 /CUMM (1.4-6.5); ABSOLUTE LYMPH COUNT 1.4 /CUMM (1.2-3.4); BASOPHIL % 0.2 % (0.0-2.0); EOSINOPHIL % 1.4 % (0-5); GRANULOCYTE % 71.8 % (42.2-75.2); HEMATOCRIT 27.6 % (37-47); MEAN CORPUSCULAR HGB 29.3 PG (27.0-31.0); MEAN CORPUSCULAR HGB CONC 33.3 G/DL (33.0-37.0); MEAN PLATELET VOLUME 7.9 FL (7.4-10.4); PLATELET COUNT 247 /CUMM (130-400); RBC DISTRIBUTION WIDTH 16.7 % (11.5-14.5); RED BLOOD CELL CT 3.14 /CUMM (4.20-5.40); WHITE BLOOD CELL COUNT 9.1 /CUMM (4.8-10.8)
--- NOTE | 2016-09-18 01:55 | CT SCAN REPORT ---
EXAMINATION: CT SCAN OF THE PELVIS AND LUMBAR SPINE CLINICAL INFORMATION: Back pain. COMPARISON: CT scan of the pelvis 05/10/2016. Lumbar spine radiographs 12/20/2014. CT chest abdomen and pelvis 01/28/2015. TECHNIQUE: Last Chalker images were obtained. CT acquisition of the pelvis and lumbar spine were obtained without intravenous administration of contrast. Data was reformatted into multiplanar images at the acquisition workstation. DLP: 1286.26 mGy-cm. FINDINGS: Lumbar spine: There are chronic postoperative changes of decompressive laminectomies at L4 and L5 with a posterior fusion construct comprised of transpedicular screws transfixed by vertical fusion rods extending from L4 to L5. There is grade 1 anterolisthesis of L3 on L4 that appears to be related to advanced facet degenerative changes at this level. Vertebral alignment is otherwise grossly maintained. There is chronic appearing loss of vertebral body height at L1 with impaction of the lower endplate and anterior wedging with approximately 50% vertebral body height loss anteriorly. There is a large chronic appearing upper L2 endplate disc herniation. There is loss of intervertebral disc height with associated sclerotic degenerative endplate changes at multiple levels that appear to be most advanced at the level of L3-L4. Chronic appearing compression fractures of T7 and T8 are partially included within the [id number] this examination. At L1-L2 there is a broad central disc osteophyte complex causes ventral flattening of the thecal sac. There is moderate to severe bilateral neuroforaminal encroachment. The canal is not well assessed on this examination but it is suspected that there is at least mild canal stenosis. At L2-L3 there is a broad central disc osteophyte complex that causes ventral flattening of the thecal sac. There is mild bilateral neuroforaminal encroachment. The canal is not well assessed on this examination but it is suspected that there is at least mild canal stenosis. At L3-L4 there is a broad central disc osteophyte complex that causes ventral flattening of the thecal sac and buckling of the ligamenta flava causing dorsolateral indentation of the thecal sac. There is severe left and moderate right neuroforaminal encroachment. The canal is not well assessed on this examination but is suspected that there is at least moderate canal stenosis. At L4-L5 the canal is decompressed and there is no neuroforaminal encroachment. At L5-S1 the canal is decompressed and there appears to be interbody osseous union. Mild symmetric neuroforaminal encroachment. Limited visualization of the retroperitoneal structures reveals a hyperdense cyst at the upper pole of the right kidney and a complex partially calcified lesion involving the lower pole of the right kidney. There is symmetric atrophy of the psoas and paraspinal muscles. Pelvis: There are chronic changes of a right hip hemiarthroplasty and an intramedullary dustin repair of a left femoral neck fracture. Hardware appears grossly intact and there is no evidence to suggest loosening or infection. There is no acute fracture or dislocation. Specifically the pelvic ring is intact. Superior and inferior pubic rami are intact. Sacral ala are intact. Limited visualization of the intra-abdominal structures reveals numerous scattered diverticula within the sigmoid colon. Calcified atheromatous plaque involves the abdominal aorta and iliac vessels. The urinary bladder is unremarkable. Chronic changes of a hysterectomy are noted. There is no worrisome adnexal mass. IMPRESSION: There are chronic changes of a decompressive laminectomy and a posterior spinal hardware fusion that extends from L4 to L5. 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 There is at least mild canal stenosis at the levels of L1-L2 and L2-L3. At least moderate canal stenosis at L3-L4. There is a chronic wedge compression deformity of the L1 vertebral body and a chronic compression deformities of the T7 and T8 vertebra are also partially included within the [id number] of this examination. There are varying degrees of neuroforaminal encroachment as described above. No evidence of acute pelvic fracture.
[2016-09-18 03:32] VITALS: BP 137/83
== END 2016-09-18 03:36 ==
LOC: ERH 23:43
PROVIDERS: Emergency Medicine
DX: M25.551 Pain in right hip (principal); M54.5 Low back pain; R52 Pain, unspecified; W19.XXXA Unspecified fall, initial encounter; Y93.9 Activity, unspecified; Y92.9 Unspecified place or not applicable

== ENCOUNTER 2016-10-08 06:01 | Emergency (ER) | payer OTHER, MEDICARE ==
[~2016-10-08] VITALS: Ht 157.5 cm; Wt 71.7 kg
--- NOTE | 2016-10-08 06:05 | ED GI/GU/ABDOMINAL COMPLAINT ---
History of Present Illness General Chief Complaint: General Adult Stated Complaint: GROIN PAIN Source: patient Exam Limitations: no limitations Vital Signs & Intake/Output Vital Signs & Intake/Output Vital Signs Date Time Temp Pulse Resp B/P B/P Pulse O2 O2 Flow FiO2 Mean Ox Delivery Rate 10/08 0534 97 Room Air 10/08 604 98.4 74 16 202/78 98 Room Air Room Air Allergies Coded Allergies: tramadol (HALLUCINATIONS 09/14/16) hydromorphone (From DILAUDID) (hallucinations 09/14/16) morphine (hallucinations 09/14/16) oxycodone (hallucinations 09/14/16) Reconcile Medications Allopurinol 100 MG TABLET 2 TAB PO QAM GOUT (Reported) Aspirin (Ecotrin*) 81 MG TABLET.DR 1 TAB PO QAM HEART/BLOOD (Reported) Atorvastatin Calcium 40 MG TABLET 1 TAB PO QAM CHOLESTEROL (Reported) Biotin 10,000 MCG CAPSULE 1 CAP PO 1700 SUPPLEMENT (Reported) Calcium Carbonate/Vitamin D3 (Calcium 500 + D Tablet) 500 MG-400 TABLET 1 TAB PO DAILY SUPPLEMENT (Reported) Cholecalciferol (Vitamin D3) (Vitamin D3) 2,000 UNIT TABLET 1 CAP PO 1700 SUPPLEMENT (Reported) Cyanocobalamin (Vitamin B-12) 1,000 MCG TABLET 1 TAB PO QAM SUPPLEMENT ( Reported) Docusate Sodium (Colace) 100 MG CAPSULE 1 CAP PO QAM STOOL SOFTENER (Reported ) Furosemide (Lasix) 80 MG TABLET 1 TAB PO QAM DIURETIC (Reported) Insulin Glargine,Hum.rec.anlog (Lantus Solostar) 100 UNIT/ML (3 ML) INSULN.PEN 15 UNIT SC QHS DIABETES (Reported) Labetalol HCl 300 MG TABLET 1 TAB PO BID BP (Reported) Linagliptin (Tradjenta) 5 MG TABLET 1 TAB PO 1700 DIABETES (Reported) Lisinopril 10 MG TABLET 1 TAB PO BID HYPERTENSION (Reported) Magnesium Oxide 400 MG TABLET 1 TAB PO QAM SUPPLEMENT (Reported) Methimazole 5 MG TABLET 0.5 TAB PO AD THYROID (Reported) Multivitamin (Daily Multiple Vitamin) 1 EACH TABLET 1 TAB PO 1700 SUPPLEMENT (Reported) Omeprazole 20 MG CAPSULE.DR 1 CAP PO DAILY AC GI (Reported) Teriparatide (Forteo) 20 MCG/DOSE (600 MCG/2.4 ML) PEN.INJCTR 20 MCG SC DAILY OSTEOPOROSIS (Reported) Tylenol With Codeine (Tylenol With Codeine #3 Tablet) 300 MG-30 MG TABLET 1 TAB PO Q4H PRN PAIN (Reported) Triage Nurses Notes Reviewed? yes ? n Is pt currently ? No Duration: hour(s): Timing: single episode today Location: right groin Radiation: no radiation Activities at Onset: none Prior Abdominal Problems: similar symptoms Modifying Factors: Worsens With: movement. Associated Symptoms: right groin/hip pain HPI: 81-year-old woman history of compression fractures, status post hip replacement, presents with right groin and hip pain which awoke her from sleep approximately 1-2 hours ago. Per her daughter, she has been struggling with chronic pain for the past several months. She takes Ultram and codeine for this. She woke this morning with severe right hip pain requiring an ambulance to deliver her to the emergency department. She does not confer any recent trauma or fall. She states that she can move her hip but with discomfort. She has no fever chills nausea vomiting diarrhea chest pain. Her daughter notes that her urine smelled foul last night. (KELSY LEDESMA,CLAUDIA Navarro) Past History Travel History Traveled to [place] past 21 day No Medical History Any Pertinent Medical History? see below for history Neurological: NONE EENT: cataracts Cardiovascular: aortic aneurysm, CAD (status post stent), CHF, hypertension, hyperlipidemia, AORTIC ANEURYSM CARDIAC STENTS Respiratory: lung nodules Gastrointestinal: GERD, HAS BLEED- ?FROM WHERE Hepatic: cholelithiasis Renal: ACUTE KIDNEY FAILURE recurrent urinary tract infection Musculoskeletal: chronic back pain, gout, osteoarthritis Psychiatric: anxiety Endocrine: diabetes, hyperthyroidism, right thyroid goiter Blood Disorders: anemia Cancer(s): colon/rectal cancer BILLING ADJUDICATOR/Reproductive: miscarriage History of MRSA: No History of VRE: No History of CDIFF: No Tetanus Vaccine: 04/24/15 Surgical History Surgical History: cholecystectomy, colon resection (right hemicolectomy), hip replacement (right hemiarthroplasty), hysterectomy (partial), spinal fusion, L BREAST NIPPLE REMOVED L HIP ORIF uterine prolapse surgery status post left hip ORIF Psychosocial History Who do you live with Family Services at Home None What is your primary language [place] Family History Family History, If Any: BROTHER (Pancreatic cancer). Relation not specified for: Cancer of small intestine FH: diabetes mellitus FH: hypertension FH: pancreatic cancer Hx Contributory? No (KELSY LEDESMA,CLAUDIA Navarro) Review of Systems Review of Systems Constitutional: Reports: no symptoms. EENTM: Reports: no symptoms. Respiratory: Reports: no symptoms. Cardiovascular: Reports: no symptoms. GI: Reports: no symptoms. Genitourinary: Reports: no symptoms. Musculoskeletal: Reports: no symptoms. Skin: Reports: no symptoms. Neurological/Psychological: Reports: no symptoms. Hematologic/Endocrine: Reports: no symptoms. Immunologic/Allergic: Reports: no symptoms. All Other Systems: Reviewed and Negative (KELSY LEDESMA,CLAUDIA Navarro) Physical Exam Physical Exam General Appearance: well developed/nourished, anxious, moderate distress Head: atraumatic, normal appearance Eyes: Bilateral: normal appearance. Ears, Nose, Throat, Mouth: hearing grossly normal Neck: normal inspection, supple, full range of motion Respiratory: normal breath sounds Cardiovascular: regular rate/rhythm Gastrointestinal: normal bowel sounds, soft, non-tender Back: diffuse tenderness around right hip girdle, no obvious deformity. pain invoked with passive ROM which is diminished. Extremities: no limb rotation or shortening. Neurologic/Psych: awake, alert, agitated Core Measures ACS in differential dx? No Severe Sepsis Present: No Septic Shock Present: No (KELSY LEDESMA,CLAUDIA Navarro) Progress Differential Diagnosis: hip fx vs dislocation vs uti vs other. Plan of Care: Orders Procedure Date/time Status URINALYSIS 10/08 621 Complete TROPONIN LEVEL 10/08 621 Complete COMPREHENSIVE METABOLIC PANEL 10/08 621 Complete CBC WITHOUT DIFFERENTIAL 10/08 621 Complete EKG 10/08 621 Active Laboratory Tests 10/08/16 0930: Urine Color YEL, Urine Clarity CLEAR, Urine pH 6.0, Ur Specific [place] 1.020, Urine Protein TRACE H, Urine Ketones NEG, Urine Nitrite NEG, Urine Bilirubin NEG, Urine Urobilinogen 0.2, Ur Leukocyte Esterase TRACE H, Ur Microscopic SEDIMENT EXAMINED, Urine WBC RARE, Ur Epithelial Cells MOD H, Urine Bacteria FEW H, Urine Hemoglobin NEG, Urine Glucose NEG 10/08/16 0620: Anion Gap 12, Estimated GFR 48 L, BUN/Creatinine Ratio 26.4 H, Glucose 129 H, Calcium 9.8, Total Bilirubin 0.7, AST 30, ALT 39, Alkaline Phosphatase 117, Troponin I < 0.01, Total Protein 6.5, Albumin 3.6, Globulin 2.9, Albumin/ Globulin Ratio 1.2, CBC w Diff NO MAN DIFF REQ, RBC 3.21 L, MCV 88.9, MCH 29.1, RDW 16.1 H, MPV 8.1, Gran % 73.1, Lymphocytes % 14.0 L, Monocytes % 10.6 H, Eosinophils % 1.6, Basophils % 0.7, Absolute Granulocytes 6.3, Absolute Lymphocytes 1.2, Absolute Monocytes 0.9 H, Absolute Eosinophils 0.1, Absolute Basophils 0.1, PUBS MCHC 32.7 L Diagnostic Imaging: Viewed by Me: Radiology Read. Discussed w/RAD: Radiology Read. Initial ED EKG: normal axis, normal intervals, normal p-waves, normal QRS complex, normal sinus rhythm Hand-Off Endorsed To: TONNY HALE MD Endorsed Time: 0700 Pending: labs, Xray (CLAUDIA TIERNEY MD) Radiology Impression: no acute abnormality, no fracture, no dislocation Comments: Ambulates with walker without difficulty, pain improved (TONNY HALE MD) Departure Departure Condition: Stable Referrals: ONIEL LEDESMA,CIARAN Perera (PCP/Family) Departure Forms: Customer Survey General Discharge Information (CLAUDIA TIERNEY MD) Departure Time of Disposition: 1024 Disposition: HOME OR SELF CARE Clinical Impression Primary Impression: Right hip pain Secondary Impressions: Arthritis, shoulder region Additional Instructions: Follow up with your pain specialist Stop Tylenol with codeine Prescriptions: Current Visit Scripts Hydromorphone HCl (Dilaudid) 1 TAB PO Q6P PRN severe pain #15 TAB (TONNY HALE MD)
[2016-10-08 06:40] LABS: ABSOLUTE BASOPHIL COUNT 0.1 /CUMM (0.0-0.2); ABSOLUTE EOSINOPHIL COUNT 0.1 /CUMM (0.0-0.7); ABSOLUTE GRANULOCYTE CT 6.3 /CUMM (1.4-6.5); ABSOLUTE LYMPH COUNT 1.2 /CUMM (1.2-3.4); ABSOLUTE MONOCYTE COUNT 0.9 /CUMM (0.10-0.60); BASOPHIL % 0.7 % (0.0-2.0); EOSINOPHIL % 1.6 % (0-5); GRANULOCYTE % 73.1 % (42.2-75.2); HEMATOCRIT 28.6 % (37-47); MEAN CORPUSCULAR HGB 29.1 PG (27.0-31.0); MEAN CORPUSCULAR HGB CONC 32.7 G/DL (33.0-37.0); MEAN CORPUSCULAR VOLUME 88.9 FL (81.0-99.0); MEAN PLATELET VOLUME 8.1 FL (7.4-10.4); PLATELET COUNT 237 /CUMM (130-400); RBC DISTRIBUTION WIDTH 16.1 % (11.5-14.5); RED BLOOD CELL CT 3.21 /CUMM (4.20-5.40); WHITE BLOOD CELL COUNT 8.6 /CUMM (4.8-10.8)
--- NOTE | 2016-10-08 09:15 | RADIOLOGY REPORT ---
EXAMINATION: XR HIP, RIGHT CLINICAL INFORMATION: Pain COMPARISON: CT of the pelvis September 2016. X-ray right hip June 2016 TECHNIQUE: One view of the pelvis and 2 views of the right hip of the right hip. FINDINGS: No acute fracture or dislocation is seen. Right femoral prosthesis and left femoral intramedullary dustin and compression/lag screw and postsurgical changes to the lower lumbar spine are noted. Bones of the pelvis are unremarkable. Soft tissues are unremarkable. IMPRESSION: Postsurgical changes. No fracture or dislocation seen.
--- NOTE | 2016-10-08 09:20 | RADIOLOGY REPORT ---
EXAMINATION: XR LUMBOSACRAL SPINE CLINICAL INFORMATION: Pain COMPARISON: Lumbar spine CT September 2016 and x-ray October 2014 TECHNIQUE: AP and lateral views of the lumbosacral spine were obtained. FINDINGS: There are postsurgical changes at L4-L5 with posterior transpedicular screws, disc spacer and evidence of laminectomy. Hardware is intact and appears unchanged from previous exams. There is an old L1 vertebral body compression fracture that is unchanged. No acute fracture is seen. Bone alignment is normal. There is multilevel degenerative disc disease and spondylosis. IMPRESSION: Stable postsurgical change to the lower lumbar spine and stable old L1 compression fracture. Multilevel degenerative disc disease and degenerative spondylosis. No change from previous exams.
--- NOTE | 2016-10-08 09:23 | RADIOLOGY REPORT ---
EXAMINATION: XR PORTABLE CHEST CLINICAL INFORMATION: Pain COMPARISON: Previous chest x-ray July [address] September 2016 TECHNIQUE: Portable frontal view of the chest was obtained. FINDINGS: The cardiac silhouette may be slightly enlarged but stable. There is prominent soft tissue seen in the right cervical thoracic inlet region and deviation of the trachea to the left. This is stable from previous exams. When compared with previous CT, this likely corresponds to a large right thyroid nodule. The lungs are clear. There is no pleural effusion. There are degenerative changes of the spine and right shoulder. IMPRESSION: No evidence for acute disease in the chest.
--- NOTE | 2016-10-08 09:25 | RADIOLOGY REPORT ---
EXAMINATION: XR SHOULDER, RIGHT CLINICAL INFORMATION: Pain COMPARISON: Previous x-ray June 2006 TECHNIQUE: AP external rotation, Grashey, scapular Y, and axillary views of the right shoulder. FINDINGS: No fracture or dislocation is seen. There is arthritis at the glenohumeral joint and acromioclavicular joint. Soft tissues are unremarkable. Increased soft tissue in the right cervical thoracic inlet region is again noted likely corresponding to a large right thyroid nodule. IMPRESSION: Arthritis. No fracture or dislocation seen.
[2016-10-08] MEDS ORDERED: DILAUDID2 M1 PO (10:26)
[2016-10-08 10:44] VITALS: BP 175/87
== END 2016-10-08 10:45 ==
LOC: ERH 06:01
PROVIDERS: Pediatrics
DX: M19.019 Primary osteoarthritis, unspecified shoulder (principal); M25.551 Pain in right hip
CPT/HCPCS: 72100; 73030-RT; 73502-RT; 81001; 93005; 93010; 96374; 96376